=== PATIENT | male | born 1950 | race Caucasian/White ===

== ENCOUNTER 2021-08-15 10:23 | Inpatient (IN) ==
[2021-08-15] MEDS ORDERED: 0.9 % Sodium Chloride 500 ML IVC ONE (11:20)
[2021-08-15 12:13] LABS: Immature Granulocytes % 0.4 % (0-4); Mean Corpuscular Volume 94.5 fL (83.0-100.0)
[2021-08-15 12:15] LABS: Basophils % 0.2 %; Hematocrit 47.9 % (37.5-50.1); Hemoglobin 16.2 g/dL (12.9-16.9); Immature Platelets 6.9 % (1.1-6.1); Lymphocytes # 0.8 K/mcL (0.6-4.6); Lymphocytes % 18.7 %; Mean Corpuscular HGB Conc 33.8 g/dL (31.6-35.5); Mean Platelet Volume 10.8 fL (9.4-12.4); Monocytes # 0.5 K/mcL (0.0-1.3); Monocytes % 11.6 %; Neutrophils # 3.1 K/mcL (1.6-8.9); Red Blood Count 5.07 M/mcL (4.19-5.50); Red Cell Distribution Width 13.2 % (11.5-14.5); Segmented Neutrophils % 69.1 %; White Blood Count 4.5 K/mcL (4.3-11.1)
[2021-08-15 12:28] LABS: Platelet Count 96 K/mcL (140-400)
[2021-08-15 12:33] LABS: Alanine Aminotransferase 25 Units/L (7-52); Albumin 3.8 g/dL (3.5-5.7); Albumin/Globulin Ratio 1.5 (1.1-2.2); Alkaline Phosphatase 47 Units/L (34-104); Aspartate Amino Transferase 37 Units/L (13-39); BUN/Creatinine Ratio 16 (6-26); Bilirubin,Direct 0.2 mg/dL (0.0-0.2); Bilirubin,Indirect 0.6 mg/dL (0.0-1.0); Bilirubin,Total 0.8 mg/dL (0.3-1.0); Blood Urea Nitrogen 18 mg/dL (8-23); Calcium 8.5 mg/dL (8.6-10.3); Carbon Dioxide 29 mEq/L (23-29); Chloride 96 mEq/L (98-107); Globulin 2.5 g/dL (2.4-3.5); Glucose 117 mg/dL (70-105); Osmolality,Calculated 279 (280-300); Sodium 133 mEq/L (136-145); Total Protein 6.3 g/dL (6.4-8.9); Troponin I 0.07 ng/mL (< 0.04); eGFR For African Americans > 60 (> 60); eGFR For Non-African Americans > 60 (> 60)
[2021-08-15 12:37] LABS: Large Platelets Present (Not Present); Platelet Estimate Slight Decrease (Normal)
[2021-08-15 12:50] LABS: Influenza A PCR Negative (Negative); Influenza B PCR Negative (Negative); Resp. Syncytial Virus PCR Negative (Negative)
[2021-08-15] MEDS ORDERED: Isovue-370 500 ML BOTTLE IVP ONE (12:51)
[2021-08-15 12:52] LABS: SARS-CoV-2 by PCR (In House) Positive (Negative)
[2021-08-15 13:13] LABS: Bilirubin,Urine Negative (Negative); Blood,Urine Negative (Negative); Clarity,Urine Clear (Clear); Color,Urine Light-Yellow (Yellow); Glucose,Urine (UA) >=1000 mg/dL (Normal); Ketones,Urine Negative (Negative); Leukocyte Esterase,Urine Negative (Negative); Nitrite,Urine Negative (Negative); PH,Urine 5.5 pH Units (5.0-8.0); Protein,Urine Negative (Neg-Trace); RBC,Urine 0-3 per hpf (0-3); Specific Gravity,Urine 1.017 (1.010-1.025); Squamous Epithelial Cell,Urine Few per hpf (None-Few); Urobilinogen,Urine Normal (Normal); WBC,Urine 0-3 per hpf (0-3)
[2021-08-15 13:58] LABS: ABG Base Excess 0 mEq/L (-2 to 3); ABG HCO3 27 mEq/L (21-27); ABG Oxygen Saturation 89 % (95-98); ABG PCO2 51 mmHg (35-45); ABG PH 7.34 pH Units (7.32-7.45); ABG PO2 60 mmHg (85-104); ABG TCO2 29 mEq/L (20-26)
[2021-08-15] MEDS ORDERED: Albuterol 2.5 MG/3 ML NEBULIZER IH ONE (14:22)
[2021-08-15] MEDS ORDERED: methylPREDNISolone 125 MG/2 ML VIAL IVP ONE (14:22)
[2021-08-15] MEDS ORDERED: Naloxone 0.4 MG/ML INJ IVP PRN (14:44)
[2021-08-15] MEDS ORDERED: Ondansetron 4 MG/2 ML VIAL IVP PRN (14:44)
[2021-08-15] MEDS ORDERED: Ipratropium 1 PUFF INHALER IH PRN (14:49)
[2021-08-15] MEDS ORDERED: *HR* Dextrose 50 % in Water (Syg) 50 ML SYRINGE IVP PRN (15:10)
[2021-08-15] MEDS ORDERED: Dextrose Gel 15 GM/37.5 ML TUBE PO PRN ×2 (15:10)
[2021-08-15] MEDS ORDERED: D5% in Water 1,000 ML IVC PRN (15:10)
[2021-08-15] MEDS: Insulin LISPRO 300 UNITS/3 ML VIAL SUBQ SCH (18:14)
[2021-08-15] MEDS: Furosemide 20 MG/2 ML VIAL IVP SCH (21:38)
[2021-08-16] MEDS ORDERED: Albumin 25% 25gram/100mL 25 GM/100 ML IV.SOLN IVPB ONE (04:05)
[2021-08-16] MEDS: *HR* Enoxaparin 40 MG/0.4 ML SYRINGE SQ SCH (04:18)
[2021-08-16 06:55] LABS: Mean Platelet Volume 10.5 fL (9.4-12.4)
[2021-08-16 06:57] LABS: Hematocrit 47.7 % (37.5-50.1); Hemoglobin 15.6 g/dL (12.9-16.9); Immature Granulocytes % 0.3 % (0-4); Immature Platelets 5.5 % (1.1-6.1); Lymphocytes # 0.5 K/mcL (0.6-4.6); Mean Corpuscular HGB Conc 32.7 g/dL (31.6-35.5); Mean Corpuscular Hemoglobin 31.1 pg (28.0-33.3); Mean Corpuscular Volume 95.2 fL (83.0-100.0); Monocytes # 0.4 K/mcL (0.0-1.3); Monocytes % 9.2 %; Neutrophils # 3.1 K/mcL (1.6-8.9); Red Blood Count 5.01 M/mcL (4.19-5.50); Red Cell Distribution Width 12.8 % (11.5-14.5); Segmented Neutrophils % 78.5 %; White Blood Count 3.9 K/mcL (4.3-11.1)
[2021-08-16 07:07] LABS: Platelet Count 94 K/mcL (140-400)
[2021-08-16 07:15] LABS: BUN/Creatinine Ratio 22 (6-26); Blood Urea Nitrogen 27 mg/dL (8-23); Calcium 8.2 mg/dL (8.6-10.3); Carbon Dioxide 29 mEq/L (23-29); Chloride 97 mEq/L (98-107); Glucose 164 mg/dL (70-105); Osmolality,Calculated 287 (280-300); Potassium 4.2 mEq/L (3.5-5.1); Sodium 134 mEq/L (136-145); eGFR For African Americans > 60 (> 60); eGFR For Non-African Americans 59 (> 60)
[2021-08-16] MEDS ORDERED: *HR* OxyCODONE/APAP 7.5/325 TABLET PO PRN (07:38)
[2021-08-16] MEDS: Insulin LISPRO 300 UNITS/3 ML VIAL SUBQ SCH ×3 (08:33→18:06)
[2021-08-16] MEDS: Sacubitril/Valsartan 24/26 MG 1 TABLET PO SCH ×2 (08:34→21:12)
[2021-08-16] MEDS: levoFLOXacin 750 MG TABLET PO SCH (08:34)
[2021-08-16] MEDS: Aspirin Enteric Coated 81 MG Tablet PO SCH (08:34)
[2021-08-16] MEDS: Metoprolol XL (24 HR) Succ 25 MG TAB.ER.24H PO SCH (08:34)
[2021-08-16] MEDS: Cyanocobalamin (B-12) 1,000 MCG TABLET PO SCH (08:35)
[2021-08-16] MEDS: Furosemide 20 MG/2 ML VIAL IVP SCH ×2 (08:35→21:13)
[2021-08-17] MEDS: *HR* Enoxaparin 40 MG/0.4 ML SYRINGE SQ SCH (06:33)
[2021-08-17 06:55] VITALS: BP 106/69; PULSE 51; TEMP 98
[2021-08-17] MEDS: Insulin LISPRO 300 UNITS/3 ML VIAL SUBQ SCH (07:27)
[2021-08-17] MEDS: Aspirin Enteric Coated 81 MG Tablet PO SCH (09:51)
[2021-08-17] MEDS: levoFLOXacin 750 MG TABLET PO SCH (09:51)
[2021-08-17] MEDS: Sacubitril/Valsartan 24/26 MG 1 TABLET PO SCH (09:51)
[2021-08-17] MEDS: Cyanocobalamin (B-12) 1,000 MCG TABLET PO SCH (09:51)
[2021-08-17] MEDS: Metoprolol XL (24 HR) Succ 25 MG TAB.ER.24H PO SCH (09:51)
[2021-08-17] MEDS: Furosemide 20 MG/2 ML VIAL IVP SCH (09:51)
[2021-08-17 11:57] VITALS: O2SAT 93
== END 2021-08-17 12:31 | disposition home or self-care (01) | DRG 177 ==
LOC: EMEROOARM 10:23 → 3BNU 10:23
PROVIDERS: ADMIT Student in an Organized Health Care Education/Training Program; ATTEND Student in an Organized Health Care Education/Training Program

== ENCOUNTER 2021-08-19 14:24 | Inpatient (IN) ==
[2021-08-19] MEDS ORDERED: Ipratropium/Albuterol Neb 3 ML IH ONE (14:34)
[2021-08-19] MEDS ORDERED: methylPREDNISolone 125 MG/2 ML VIAL IVP ONE (14:41)
[2021-08-19] MEDS ORDERED: levoFLOXacin 750 MG/150 ML 750 MG/150 ML BAG IVPB ONE (14:42)
[2021-08-19 15:05] LABS: Basophils % 0.2 %; Red Cell Distribution Width 12.9 % (11.5-14.5)
[2021-08-19 15:07] LABS: Hematocrit 52.5 % (37.5-50.1); Hemoglobin 17.5 g/dL (12.9-16.9); Immature Granulocytes % 0.3 % (0-4); Immature Platelets 8.4 % (1.1-6.1); Lymphocytes # 0.7 K/mcL (0.6-4.6); Lymphocytes % 11.4 %; Mean Corpuscular HGB Conc 33.3 g/dL (31.6-35.5); Mean Corpuscular Hemoglobin 31.4 pg (28.0-33.3); Mean Corpuscular Volume 94.3 fL (83.0-100.0); Mean Platelet Volume 10.7 fL (9.4-12.4); Monocytes # 0.6 K/mcL (0.0-1.3); Monocytes % 10.7 %; Neutrophils # 4.4 K/mcL (1.6-8.9); Platelet Count 94 K/mcL (140-400); Red Blood Count 5.57 M/mcL (4.19-5.50); Segmented Neutrophils % 77.4 %; White Blood Count 5.7 K/mcL (4.3-11.1)
[2021-08-19 15:26] LABS: BUN/Creatinine Ratio 18 (6-26); Blood Urea Nitrogen 20 mg/dL (8-23); Calcium 8.6 mg/dL (8.6-10.3); Carbon Dioxide 28 mEq/L (23-29); Chloride 96 mEq/L (98-107); Glucose 106 mg/dL (70-105); Osmolality,Calculated 281 (280-300); Potassium 3.6 mEq/L (3.5-5.1); Sodium 134 mEq/L (136-145); eGFR For African Americans > 60 (> 60); eGFR For Non-African Americans > 60 (> 60)
[2021-08-19 15:30] LABS: Troponin I 0.05 ng/mL (< 0.04)
[2021-08-19 16:44] LABS: ABG Base Excess 3 mEq/L (-2 to 3); ABG HCO3 26 mEq/L (21-27); ABG Oxygen Saturation 81 % (95-98); ABG PCO2 35 mmHg (35-45); ABG PH 7.47 pH Units (7.32-7.45); ABG PO2 42 mmHg (85-104); ABG TCO2 27 mEq/L (20-26)
[2021-08-19] MEDS ORDERED: Ondansetron ODT 4 MG TAB.RAPDIS SL PRN (17:23)
[2021-08-19] MEDS ORDERED: Naloxone 0.4 MG/ML INJ IVP PRN (17:23)
[2021-08-20] MEDS: *HR* LORazepam 2 MG/ML VIAL IVP PRN (00:23)
[2021-08-20] MEDS: Melatonin 3 MG TABLET PO PRN ×2 (00:23→22:13)
[2021-08-20] MEDS: *HR* Heparin 5,000 UNIT/ML VIAL SQ SCH ×2 (05:25→18:15)
[2021-08-20] MEDS: Furosemide 40 MG TABLET PO SCH (09:52)
[2021-08-20] MEDS: Cyanocobalamin (B-12) 1,000 MCG TABLET PO SCH (09:52)
[2021-08-20] MEDS: levoFLOXacin 750 MG TABLET PO SCH (09:52)
[2021-08-20] MEDS: Spironolactone 25 MG TABLET PO SCH (09:52)
[2021-08-20] MEDS: BuPROPion XL (24 HR) 150 MG TABLET PO SCH (09:52)
[2021-08-20] MEDS: Sacubitril/Valsartan 24/26 MG 1 TABLET PO SCH ×2 (09:52→22:10)
[2021-08-20] MEDS: Aspirin Enteric Coated 81 MG Tablet PO SCH (09:52)
[2021-08-20] MEDS: Budesonide/Formoterol 160/4.5 1 PUFF INH IH SCH ×2 (11:14→20:31)
[2021-08-21] MEDS: *HR* Heparin 5,000 UNIT/ML VIAL SQ SCH ×2 (04:19→18:30)
[2021-08-21 05:45] LABS: Basophils % 0.1 %; Red Cell Distribution Width 12.8 % (11.5-14.5)
[2021-08-21 05:47] LABS: Hematocrit 48.3 % (37.5-50.1); Hemoglobin 16.4 g/dL (12.9-16.9); Immature Granulocytes % 0.6 % (0-4); Immature Platelets 8.2 % (1.1-6.1); Lymphocytes # 0.8 K/mcL (0.6-4.6); Lymphocytes % 11.4 %; Mean Corpuscular Volume 94.3 fL (83.0-100.0); Mean Platelet Volume 10.5 fL (9.4-12.4); Monocytes # 0.6 K/mcL (0.0-1.3); Monocytes % 8.3 %; Platelet Count 128 K/mcL (140-400); Red Blood Count 5.12 M/mcL (4.19-5.50); Segmented Neutrophils % 79.6 %; White Blood Count 6.7 K/mcL (4.3-11.1)
[2021-08-21 05:51] LABS: Neutrophils # 5.3 K/mcL (1.6-8.9)
[2021-08-21 06:05] LABS: BUN/Creatinine Ratio 29 (6-26); Blood Urea Nitrogen 28 mg/dL (8-23); Calcium 8.3 mg/dL (8.6-10.3); Carbon Dioxide 29 mEq/L (23-29); Chloride 96 mEq/L (98-107); Glucose 175 mg/dL (70-105); Osmolality,Calculated 284 (280-300); Potassium 4.3 mEq/L (3.5-5.1); Sodium 132 mEq/L (136-145); eGFR For African Americans > 60 (> 60); eGFR For Non-African Americans > 60 (> 60)
[2021-08-21] MEDS: Budesonide/Formoterol 160/4.5 1 PUFF INH IH SCH ×2 (08:10→20:53)
[2021-08-21 08:46] LABS: C-Reactive Protein < 5 mg/L (Less than 10)
[2021-08-21] MEDS: levoFLOXacin 750 MG TABLET PO SCH (09:59)
[2021-08-21] MEDS: Aspirin Enteric Coated 81 MG Tablet PO SCH (09:59)
[2021-08-21] MEDS: Spironolactone 25 MG TABLET PO SCH (09:59)
[2021-08-21] MEDS: Sacubitril/Valsartan 24/26 MG 1 TABLET PO SCH ×2 (09:59→20:42)
[2021-08-21] MEDS: Cyanocobalamin (B-12) 1,000 MCG TABLET PO SCH (09:59)
[2021-08-21] MEDS: Furosemide 40 MG TABLET PO SCH (09:59)
[2021-08-21] MEDS: BuPROPion XL (24 HR) 150 MG TABLET PO SCH (09:59)
[2021-08-21] MEDS: Melatonin 3 MG TABLET PO PRN (20:42)
[2021-08-21] MEDS: *HR* LORazepam 2 MG/ML VIAL IVP PRN (22:18)
[2021-08-22] MEDS ORDERED: *HR* LORazepam 2 MG/ML VIAL IVP ONE (00:17)
[2021-08-22 02:26] LABS: Basophils % 0.2 %; Hemoglobin 15.7 g/dL (12.9-16.9); Lymphocytes % 8.1 %
[2021-08-22 02:28] LABS: Hematocrit 46.4 % (37.5-50.1); Immature Granulocytes % 0.4 % (0-4); Immature Platelets 7.7 % (1.1-6.1); Lymphocytes # 0.4 K/mcL (0.6-4.6); Mean Corpuscular HGB Conc 33.8 g/dL (31.6-35.5); Mean Corpuscular Hemoglobin 31.5 pg (28.0-33.3); Mean Platelet Volume 10.2 fL (9.4-12.4); Monocytes # 0.4 K/mcL (0.0-1.3); Monocytes % 9.1 %; Neutrophils # 3.9 K/mcL (1.6-8.9); Platelet Count 128 K/mcL (140-400); Red Blood Count 4.99 M/mcL (4.19-5.50); Red Cell Distribution Width 12.8 % (11.5-14.5); Segmented Neutrophils % 82.2 %; White Blood Count 4.7 K/mcL (4.3-11.1)
[2021-08-22 02:35] LABS: BUN/Creatinine Ratio 26 (6-26); Blood Urea Nitrogen 21 mg/dL (8-23); Calcium 8.1 mg/dL (8.6-10.3); Carbon Dioxide 27 mEq/L (23-29); Chloride 100 mEq/L (98-107); Glucose 193 mg/dL (70-105); Osmolality,Calculated 278 (280-300); Potassium 4.3 mEq/L (3.5-5.1); Sodium 130 mEq/L (136-145); eGFR For African Americans > 60 (> 60); eGFR For Non-African Americans > 60 (> 60)
[2021-08-22] MEDS: Saline Nasal Spray 44 ML BOTTLE NS PRN (04:48)
[2021-08-22] MEDS ORDERED: Haloperidol Lactate 5 MG/ML VIAL IVP ONE (05:30)
[2021-08-22] MEDS: *HR* Heparin 5,000 UNIT/ML VIAL SQ SCH ×2 (05:37→18:34)
[2021-08-22] MEDS: Cyanocobalamin (B-12) 1,000 MCG TABLET PO SCH (10:37)
[2021-08-22] MEDS: Furosemide 40 MG TABLET PO SCH (10:37)
[2021-08-22] MEDS: Aspirin Enteric Coated 81 MG Tablet PO SCH (10:37)
[2021-08-22] MEDS: levoFLOXacin 750 MG TABLET PO SCH (10:37)
[2021-08-22] MEDS: Sacubitril/Valsartan 24/26 MG 1 TABLET PO SCH ×2 (10:37→20:19)
[2021-08-22] MEDS: Spironolactone 25 MG TABLET PO SCH (10:38)
[2021-08-22] MEDS: BuPROPion XL (24 HR) 150 MG TABLET PO SCH (10:38)
[2021-08-22] MEDS: Budesonide/Formoterol 160/4.5 1 PUFF INH IH SCH ×2 (11:17→20:09)
[2021-08-22] MEDS: Melatonin 3 MG TABLET PO PRN (21:29)
[2021-08-23] MEDS: *HR* OxyCODONE/APAP 7.5/325 TABLET PO PRN ×3 (00:04→21:07)
[2021-08-23 03:05] LABS: Mean Platelet Volume 10.4 fL (9.4-12.4); Red Cell Distribution Width 12.6 % (11.5-14.5)
[2021-08-23 03:07] LABS: Basophils % 0.3 %; Hemoglobin 16.3 g/dL (12.9-16.9); Immature Granulocytes % 1.3 % (0-4); Lymphocytes # 0.4 K/mcL (0.6-4.6); Lymphocytes % 6.6 %; Mean Corpuscular HGB Conc 33.3 g/dL (31.6-35.5); Mean Corpuscular Hemoglobin 31.3 pg (28.0-33.3); Monocytes # 0.5 K/mcL (0.0-1.3); Monocytes % 8.1 %; Platelet Count 144 K/mcL (140-400); Red Blood Count 5.21 M/mcL (4.19-5.50); Segmented Neutrophils % 83.7 %
[2021-08-23 03:20] LABS: BUN/Creatinine Ratio 24 (6-26); Blood Urea Nitrogen 18 mg/dL (8-23); Calcium 8.4 mg/dL (8.6-10.3); Carbon Dioxide 29 mEq/L (23-29); Chloride 100 mEq/L (98-107); Glucose 206 mg/dL (70-105); Osmolality,Calculated 280 (280-300); Potassium 4.3 mEq/L (3.5-5.1); Sodium 131 mEq/L (136-145); eGFR For African Americans > 60 (> 60); eGFR For Non-African Americans > 60 (> 60)
[2021-08-23] MEDS: *HR* Heparin 5,000 UNIT/ML VIAL SQ SCH ×2 (05:25→16:59)
[2021-08-23] MEDS: Budesonide/Formoterol 160/4.5 1 PUFF INH IH SCH ×2 (08:22→20:15)
[2021-08-23] MEDS: Cyanocobalamin (B-12) 1,000 MCG TABLET PO SCH (09:18)
[2021-08-23] MEDS: Spironolactone 25 MG TABLET PO SCH (09:18)
[2021-08-23] MEDS: levoFLOXacin 750 MG TABLET PO SCH (09:18)
[2021-08-23] MEDS: Furosemide 40 MG TABLET PO SCH (09:18)
[2021-08-23] MEDS: Sacubitril/Valsartan 24/26 MG 1 TABLET PO SCH ×2 (09:18→21:07)
[2021-08-23] MEDS: Aspirin Enteric Coated 81 MG Tablet PO SCH (09:18)
[2021-08-23] MEDS: BuPROPion XL (24 HR) 150 MG TABLET PO SCH (09:56)
[2021-08-23] MEDS: Melatonin 3 MG TABLET PO PRN (21:07)
[2021-08-24] MEDS: *HR* Heparin 5,000 UNIT/ML VIAL SQ SCH ×2 (05:39→18:08)
[2021-08-24] MEDS: Budesonide/Formoterol 160/4.5 1 PUFF INH IH SCH ×2 (08:03→19:49)
[2021-08-24] MEDS: Cyanocobalamin (B-12) 1,000 MCG TABLET PO SCH (08:08)
[2021-08-24] MEDS: Furosemide 40 MG TABLET PO SCH (08:08)
[2021-08-24] MEDS: Sacubitril/Valsartan 24/26 MG 1 TABLET PO SCH ×2 (08:08→20:48)
[2021-08-24] MEDS: levoFLOXacin 750 MG TABLET PO SCH (08:08)
[2021-08-24] MEDS: Spironolactone 25 MG TABLET PO SCH (08:08)
[2021-08-24] MEDS: Aspirin Enteric Coated 81 MG Tablet PO SCH (08:08)
[2021-08-24] MEDS: BuPROPion XL (24 HR) 150 MG TABLET PO SCH (08:09)
[2021-08-24] MEDS: Melatonin 3 MG TABLET PO PRN (20:47)
[2021-08-24] MEDS: Fluticasone Propionate Nasal 50 MCG/SPRAY BOTTLE NS SCH (20:48)
[2021-08-25] MEDS: *HR* OxyCODONE/APAP 7.5/325 TABLET PO PRN (01:59)
[2021-08-25] MEDS: *HR* Heparin 5,000 UNIT/ML VIAL SQ SCH ×2 (05:31→17:36)
[2021-08-25 09:21] LABS: Basophils % 0.4 %; Eosinophils # 0.1 K/mcL (0.0-0.6); Eosinophils % 1.4 %; Hematocrit 46.6 % (37.5-50.1); Immature Granulocytes % 2.5 % (0-4); Lymphocytes # 0.6 K/mcL (0.6-4.6); Lymphocytes % 6.1 %; Mean Corpuscular HGB Conc 34.3 g/dL (31.6-35.5); Mean Corpuscular Hemoglobin 32.2 pg (28.0-33.3); Mean Corpuscular Volume 93.8 fL (83.0-100.0); Mean Platelet Volume 10.1 fL (9.4-12.4); Monocytes # 0.6 K/mcL (0.0-1.3); Monocytes % 5.6 %; Neutrophils # 8.4 K/mcL (1.6-8.9); Platelet Count 166 K/mcL (140-400); Red Blood Count 4.97 M/mcL (4.19-5.50); Red Cell Distribution Width 12.9 % (11.5-14.5)
[2021-08-25 09:40] LABS: BUN/Creatinine Ratio 32 (6-26); Blood Urea Nitrogen 28 mg/dL (8-23); Carbon Dioxide 30 mEq/L (23-29); Chloride 100 mEq/L (98-107); Glucose 159 mg/dL (70-105); Osmolality,Calculated 287 (280-300); Potassium 4.1 mEq/L (3.5-5.1); Sodium 134 mEq/L (136-145); eGFR For African Americans > 60 (> 60); eGFR For Non-African Americans > 60 (> 60)
[2021-08-25] MEDS: Aspirin Enteric Coated 81 MG Tablet PO SCH (09:44)
[2021-08-25] MEDS: Fluticasone Propionate Nasal 50 MCG/SPRAY BOTTLE NS SCH (09:44)
[2021-08-25] MEDS: BuPROPion XL (24 HR) 150 MG TABLET PO SCH (09:44)
[2021-08-25] MEDS: levoFLOXacin 750 MG TABLET PO SCH (09:45)
[2021-08-25] MEDS: Cyanocobalamin (B-12) 1,000 MCG TABLET PO SCH (09:45)
[2021-08-25] MEDS: Spironolactone 25 MG TABLET PO SCH (09:46)
[2021-08-25] MEDS: Sacubitril/Valsartan 24/26 MG 1 TABLET PO SCH ×2 (09:46→19:49)
[2021-08-25] MEDS: Furosemide 40 MG TABLET PO SCH (09:46)
[2021-08-25] MEDS: Budesonide/Formoterol 160/4.5 1 PUFF INH IH SCH ×2 (11:48→20:36)
[2021-08-25] MEDS: Melatonin 3 MG TABLET PO PRN (20:30)
[2021-08-26 01:10] LABS: Basophils % 0.3 %; Eosinophils # 0.1 K/mcL (0.0-0.6); Eosinophils % 0.7 %; Hematocrit 46.1 % (37.5-50.1); Hemoglobin 15.5 g/dL (12.9-16.9); Immature Granulocytes % 2.3 % (0-4); Lymphocytes # 0.3 K/mcL (0.6-4.6); Lymphocytes % 3.4 %; Mean Corpuscular HGB Conc 33.6 g/dL (31.6-35.5); Mean Corpuscular Hemoglobin 31.7 pg (28.0-33.3); Mean Corpuscular Volume 94.3 fL (83.0-100.0); Monocytes # 0.4 K/mcL (0.0-1.3); Monocytes % 4.1 %; Neutrophils # 8.9 K/mcL (1.6-8.9); Platelet Count 181 K/mcL (140-400); Red Blood Count 4.89 M/mcL (4.19-5.50); Red Cell Distribution Width 12.7 % (11.5-14.5); Segmented Neutrophils % 89.2 %; White Blood Count 9.9 K/mcL (4.3-11.1)
[2021-08-26 01:33] LABS: BUN/Creatinine Ratio 31 (6-26); Blood Urea Nitrogen 25 mg/dL (8-23); Carbon Dioxide 28 mEq/L (23-29); Chloride 96 mEq/L (98-107); Glucose 200 mg/dL (70-105); Osmolality,Calculated 282 (280-300); Potassium 4.3 mEq/L (3.5-5.1); Sodium 131 mEq/L (136-145); eGFR For African Americans > 60 (> 60); eGFR For Non-African Americans > 60 (> 60)
[2021-08-26] MEDS: Saline Nasal Spray 44 ML BOTTLE NS PRN (04:42)
[2021-08-26] MEDS: *HR* Heparin 5,000 UNIT/ML VIAL SQ SCH ×2 (04:42→17:12)
[2021-08-26] MEDS: BuPROPion XL (24 HR) 150 MG TABLET PO SCH (09:33)
[2021-08-26] MEDS: levoFLOXacin 750 MG TABLET PO SCH (09:34)
[2021-08-26] MEDS: Sacubitril/Valsartan 24/26 MG 1 TABLET PO SCH ×2 (09:34→21:44)
[2021-08-26] MEDS: Cyanocobalamin (B-12) 1,000 MCG TABLET PO SCH (09:34)
[2021-08-26] MEDS: Furosemide 40 MG TABLET PO SCH (09:34)
[2021-08-26] MEDS: Aspirin Enteric Coated 81 MG Tablet PO SCH (09:34)
[2021-08-26] MEDS: Spironolactone 25 MG TABLET PO SCH (09:34)
[2021-08-26] MEDS: Fluticasone Propionate Nasal 50 MCG/SPRAY BOTTLE NS SCH (09:39)
[2021-08-26] MEDS: Budesonide/Formoterol 160/4.5 1 PUFF INH IH SCH ×2 (10:24→19:52)
[2021-08-26] MEDS ORDERED: Isovue-370 500 ML BOTTLE IVP ONE (10:55)
[2021-08-26] MEDS: Melatonin 3 MG TABLET PO PRN (21:44)
[2021-08-26] MEDS: *HR* OxyCODONE/APAP 7.5/325 TABLET PO PRN (21:44)
[2021-08-27 01:49] LABS: Basophils # 0.1 K/mcL (0.0-0.2); Basophils % 0.6 %; Eosinophils % 0.3 %; Hematocrit 47.6 % (37.5-50.1); Hemoglobin 15.8 g/dL (12.9-16.9); Immature Granulocytes % 4.2 % (0-4); Lymphocytes # 0.3 K/mcL (0.6-4.6); Lymphocytes % 3.5 %; Mean Corpuscular HGB Conc 33.2 g/dL (31.6-35.5); Mean Corpuscular Hemoglobin 31.2 pg (28.0-33.3); Mean Corpuscular Volume 93.9 fL (83.0-100.0); Mean Platelet Volume 9.8 fL (9.4-12.4); Monocytes # 0.4 K/mcL (0.0-1.3); Neutrophils # 8.4 K/mcL (1.6-8.9); Platelet Count 177 K/mcL (140-400); Red Blood Count 5.07 M/mcL (4.19-5.50); Red Cell Distribution Width 12.7 % (11.5-14.5); Segmented Neutrophils % 87.4 %; White Blood Count 9.7 K/mcL (4.3-11.1)
[2021-08-27 02:08] LABS: BUN/Creatinine Ratio 29 (6-26); Blood Urea Nitrogen 27 mg/dL (8-23); Calcium 8.3 mg/dL (8.6-10.3); Carbon Dioxide 30 mEq/L (23-29); Chloride 96 mEq/L (98-107); Glucose 188 mg/dL (70-105); Osmolality,Calculated 280 (280-300); Potassium 4.6 mEq/L (3.5-5.1); Sodium 130 mEq/L (136-145); eGFR For African Americans > 60 (> 60); eGFR For Non-African Americans > 60 (> 60)
[2021-08-27] MEDS: *HR* Heparin 5,000 UNIT/ML VIAL SQ SCH ×2 (05:18→16:45)
[2021-08-27] MEDS: Saline Nasal Spray 44 ML BOTTLE NS PRN (06:26)
[2021-08-27] MEDS: Budesonide/Formoterol 160/4.5 1 PUFF INH IH SCH ×2 (07:49→19:37)
[2021-08-27] MEDS: levoFLOXacin 750 MG TABLET PO SCH (08:57)
[2021-08-27] MEDS: Sacubitril/Valsartan 24/26 MG 1 TABLET PO SCH ×2 (08:57→20:36)
[2021-08-27] MEDS: Aspirin Enteric Coated 81 MG Tablet PO SCH (08:57)
[2021-08-27] MEDS: Furosemide 40 MG/4 ML VIAL IVP SCH (08:58)
[2021-08-27] MEDS: Spironolactone 25 MG TABLET PO SCH (08:58)
[2021-08-27] MEDS: Fluticasone Propionate Nasal 50 MCG/SPRAY BOTTLE NS SCH (08:58)
[2021-08-27] MEDS: Cyanocobalamin (B-12) 1,000 MCG TABLET PO SCH (08:58)
[2021-08-27] MEDS: BuPROPion XL (24 HR) 150 MG TABLET PO SCH (08:59)
[2021-08-27] MEDS: *HR* OxyCODONE/APAP 7.5/325 TABLET PO PRN ×2 (09:11→16:44)
[2021-08-27] MEDS: Melatonin 3 MG TABLET PO PRN (20:36)
[2021-08-28] MEDS: *HR* Heparin 5,000 UNIT/ML VIAL SQ SCH ×2 (05:49→17:55)
[2021-08-28] MEDS: Fluticasone Propionate Nasal 50 MCG/SPRAY BOTTLE NS SCH (09:36)
[2021-08-28] MEDS: Sacubitril/Valsartan 24/26 MG 1 TABLET PO SCH ×2 (09:37→20:10)
[2021-08-28] MEDS: Furosemide 40 MG/4 ML VIAL IVP SCH (09:37)
[2021-08-28] MEDS: Spironolactone 25 MG TABLET PO SCH (09:37)
[2021-08-28] MEDS: Aspirin Enteric Coated 81 MG Tablet PO SCH (09:37)
[2021-08-28] MEDS: Cyanocobalamin (B-12) 1,000 MCG TABLET PO SCH (09:38)
[2021-08-28] MEDS: levoFLOXacin 750 MG TABLET PO SCH (09:38)
[2021-08-28] MEDS: BuPROPion XL (24 HR) 150 MG TABLET PO SCH (09:38)
[2021-08-28] MEDS: Budesonide/Formoterol 160/4.5 1 PUFF INH IH SCH ×2 (11:20→20:03)
[2021-08-28] MEDS ORDERED: Ipratropium 1 PUFF INHALER IH PRN (12:18)
[2021-08-28] MEDS: Saline Nasal Spray 44 ML BOTTLE NS PRN (17:57)
[2021-08-28] MEDS: Melatonin 3 MG TABLET PO PRN (22:55)
[2021-08-28] MEDS: *HR* OxyCODONE/APAP 7.5/325 TABLET PO PRN (22:55)
[2021-08-29] MEDS: *HR* Heparin 5,000 UNIT/ML VIAL SQ SCH ×2 (06:01→18:39)
[2021-08-29] MEDS: Saline Nasal Spray 44 ML BOTTLE NS PRN (06:28)
[2021-08-29] MEDS: Budesonide/Formoterol 160/4.5 1 PUFF INH IH SCH ×2 (07:42→21:53)
[2021-08-29] MEDS: Aspirin Enteric Coated 81 MG Tablet PO SCH (08:35)
[2021-08-29] MEDS: BuPROPion XL (24 HR) 150 MG TABLET PO SCH (08:35)
[2021-08-29] MEDS: Dexamethasone Sodium Phos/PF 10 MG/ML VIAL IVP SCH (08:35)
[2021-08-29] MEDS: Furosemide 40 MG/4 ML VIAL IVP SCH (08:35)
[2021-08-29] MEDS: Sacubitril/Valsartan 24/26 MG 1 TABLET PO SCH ×2 (08:35→20:05)
[2021-08-29] MEDS: levoFLOXacin 750 MG TABLET PO SCH (08:35)
[2021-08-29] MEDS: Spironolactone 25 MG TABLET PO SCH (08:35)
[2021-08-29] MEDS: Fluticasone Propionate Nasal 50 MCG/SPRAY BOTTLE NS SCH (08:35)
[2021-08-29] MEDS: Cyanocobalamin (B-12) 1,000 MCG TABLET PO SCH (08:35)
[2021-08-29] MEDS: Melatonin 3 MG TABLET PO PRN (20:05)
[2021-08-30] MEDS: *HR* Heparin 5,000 UNIT/ML VIAL SQ SCH ×2 (05:46→18:15)
[2021-08-30 07:01] LABS: BUN/Creatinine Ratio 37 (6-26); Blood Urea Nitrogen 32 mg/dL (8-23); Calcium 8.9 mg/dL (8.6-10.3); Carbon Dioxide 30 mEq/L (23-29); Chloride 93 mEq/L (98-107); Glucose 164 mg/dL (70-105); Osmolality,Calculated 281 (280-300); Potassium 4.7 mEq/L (3.5-5.1); Sodium 130 mEq/L (136-145); eGFR For African Americans > 60 (> 60); eGFR For Non-African Americans > 60 (> 60)
[2021-08-30] MEDS: Budesonide/Formoterol 160/4.5 1 PUFF INH IH SCH ×2 (07:34→21:08)
[2021-08-30] MEDS: Aspirin Enteric Coated 81 MG Tablet PO SCH (09:09)
[2021-08-30] MEDS: BuPROPion XL (24 HR) 150 MG TABLET PO SCH (09:09)
[2021-08-30] MEDS: Spironolactone 25 MG TABLET PO SCH (09:09)
[2021-08-30] MEDS: Sacubitril/Valsartan 24/26 MG 1 TABLET PO SCH ×2 (09:09→20:23)
[2021-08-30] MEDS: Cyanocobalamin (B-12) 1,000 MCG TABLET PO SCH (09:09)
[2021-08-30] MEDS: Dexamethasone Sodium Phos/PF 10 MG/ML VIAL IVP SCH (09:10)
[2021-08-30] MEDS: Fluticasone Propionate Nasal 50 MCG/SPRAY BOTTLE NS SCH (09:10)
[2021-08-30] MEDS: Furosemide 40 MG/4 ML VIAL IVP SCH (09:10)
[2021-08-30 14:26] LABS: C-Reactive Protein < 5 mg/L (Less than 10)
[2021-08-30] MEDS: *HR* OxyCODONE/APAP 7.5/325 TABLET PO PRN (20:23)
[2021-08-30] MEDS: Melatonin 3 MG TABLET PO PRN (20:23)
[2021-08-31 01:49] LABS: Basophils # 0.1 K/mcL (0.0-0.2); Basophils % 0.5 %; Eosinophils % 0.1 %; Hematocrit 49.6 % (37.5-50.1); Hemoglobin 16.7 g/dL (12.9-16.9); Immature Granulocytes % 5.1 % (0-4); Lymphocytes % 6.5 %; Mean Corpuscular HGB Conc 33.7 g/dL (31.6-35.5); Mean Corpuscular Volume 92.2 fL (83.0-100.0); Mean Platelet Volume 9.9 fL (9.4-12.4); Monocytes # 1.3 K/mcL (0.0-1.3); Monocytes % 8.4 %; Platelet Count 170 K/mcL (140-400); Red Blood Count 5.38 M/mcL (4.19-5.50); Red Cell Distribution Width 12.7 % (11.5-14.5); Segmented Neutrophils % 79.4 %
[2021-08-31 01:52] LABS: Neutrophils # 12.1 K/mcL (1.6-8.9); White Blood Count 15.2 K/mcL (4.3-11.1)
[2021-08-31 02:16] LABS: BUN/Creatinine Ratio 42 (6-26); Blood Urea Nitrogen 36 mg/dL (8-23); Calcium 8.6 mg/dL (8.6-10.3); Carbon Dioxide 27 mEq/L (23-29); Chloride 95 mEq/L (98-107); Glucose 190 mg/dL (70-105); Osmolality,Calculated 277 (280-300); Potassium 4.8 mEq/L (3.5-5.1); Sodium 127 mEq/L (136-145); eGFR For African Americans > 60 (> 60); eGFR For Non-African Americans > 60 (> 60)
[2021-08-31] MEDS: *HR* Heparin 5,000 UNIT/ML VIAL SQ SCH ×2 (05:31→18:09)
[2021-08-31] MEDS: Budesonide/Formoterol 160/4.5 1 PUFF INH IH SCH ×2 (08:39→20:04)
[2021-08-31] MEDS: Aspirin Enteric Coated 81 MG Tablet PO SCH (09:28)
[2021-08-31] MEDS: Spironolactone 25 MG TABLET PO SCH (09:28)
[2021-08-31] MEDS: BuPROPion XL (24 HR) 150 MG TABLET PO SCH (09:28)
[2021-08-31] MEDS: Cyanocobalamin (B-12) 1,000 MCG TABLET PO SCH (09:28)
[2021-08-31] MEDS: Sacubitril/Valsartan 24/26 MG 1 TABLET PO SCH ×2 (09:28→22:30)
[2021-08-31] MEDS: Fluticasone Propionate Nasal 50 MCG/SPRAY BOTTLE NS SCH (09:28)
[2021-08-31] MEDS: Pantoprazole 40 MG VIAL IVP SCH (09:29)
[2021-08-31] MEDS: Dexamethasone Sodium Phos/PF 10 MG/ML VIAL IVP SCH (09:29)
[2021-08-31] MEDS: Melatonin 3 MG TABLET PO PRN (22:34)
[2021-08-31] MEDS: *HR* OxyCODONE/APAP 7.5/325 TABLET PO PRN (22:34)
[2021-09-01 04:46] LABS: BUN/Creatinine Ratio 36 (6-26); Blood Urea Nitrogen 38 mg/dL (8-23); Calcium 8.4 mg/dL (8.6-10.3); Carbon Dioxide 32 mEq/L (23-29); Chloride 95 mEq/L (98-107); Glucose 211 mg/dL (70-105); Osmolality,Calculated 283 (280-300); Potassium 5.2 mEq/L (3.5-5.1); Sodium 129 mEq/L (136-145); eGFR For African Americans > 60 (> 60); eGFR For Non-African Americans > 60 (> 60)
[2021-09-01] MEDS: *HR* Heparin 5,000 UNIT/ML VIAL SQ SCH ×2 (06:01→19:02)
[2021-09-01] MEDS: Budesonide/Formoterol 160/4.5 1 PUFF INH IH SCH ×2 (08:09→20:44)
[2021-09-01] MEDS: Cyanocobalamin (B-12) 1,000 MCG TABLET PO SCH (09:36)
[2021-09-01] MEDS: BuPROPion XL (24 HR) 150 MG TABLET PO SCH (09:37)
[2021-09-01] MEDS: Aspirin Enteric Coated 81 MG Tablet PO SCH (09:37)
[2021-09-01] MEDS: Fluticasone Propionate Nasal 50 MCG/SPRAY BOTTLE NS SCH (09:37)
[2021-09-01] MEDS: Dexamethasone Sodium Phos/PF 10 MG/ML VIAL IVP SCH (09:37)
[2021-09-01] MEDS: Pantoprazole 40 MG VIAL IVP SCH (09:37)
[2021-09-01] MEDS: *HR* OxyCODONE/APAP 7.5/325 TABLET PO PRN ×2 (13:14→20:31)
[2021-09-01] MEDS: *HR* LORazepam 2 MG/ML VIAL IVP PRN (20:30)
[2021-09-01] MEDS: Melatonin 3 MG TABLET PO PRN (20:31)
[2021-09-02] MEDS: *HR* Heparin 5,000 UNIT/ML VIAL SQ SCH ×2 (06:11→17:40)
[2021-09-02] MEDS: Budesonide/Formoterol 160/4.5 1 PUFF INH IH SCH ×2 (07:52→20:29)
[2021-09-02] MEDS: Aspirin Enteric Coated 81 MG Tablet PO SCH (10:13)
[2021-09-02] MEDS: Dexamethasone Sodium Phos/PF 10 MG/ML VIAL IVP SCH (10:13)
[2021-09-02] MEDS: Cyanocobalamin (B-12) 1,000 MCG TABLET PO SCH (10:13)
[2021-09-02] MEDS: Pantoprazole 40 MG VIAL IVP SCH (10:13)
[2021-09-02] MEDS: BuPROPion XL (24 HR) 150 MG TABLET PO SCH (10:13)
[2021-09-02] MEDS: Fluticasone Propionate Nasal 50 MCG/SPRAY BOTTLE NS SCH (10:14)
[2021-09-02] MEDS ORDERED: Furosemide 20 MG/2 ML VIAL IVP ONE (11:02)
[2021-09-02] MEDS ORDERED: Gadolinium Contrast Agent (WT Based) IV PRN (11:05)
[2021-09-02] MEDS ORDERED: HydrOXYzine 100 MG/2 ML VIAL IM ONE (19:55)
[2021-09-03] MEDS: *HR* Heparin 5,000 UNIT/ML VIAL SQ SCH ×2 (05:28→17:39)
[2021-09-03 07:32] LABS: Basophils % 0.4 %; Eosinophils % 0.1 %
[2021-09-03 07:34] LABS: Basophils # 0.1 K/mcL (0.0-0.2); Hematocrit 46.6 % (37.5-50.1); Hemoglobin 15.9 g/dL (12.9-16.9); Immature Granulocytes % 3.8 % (0-4); Immature Platelets 5.2 % (1.1-6.1); Lymphocytes # 1.2 K/mcL (0.6-4.6); Mean Corpuscular HGB Conc 34.1 g/dL (31.6-35.5); Mean Corpuscular Hemoglobin 31.4 pg (28.0-33.3); Mean Corpuscular Volume 92.1 fL (83.0-100.0); Monocytes # 1.2 K/mcL (0.0-1.3); Monocytes % 8.9 %; Neutrophils # 10.6 K/mcL (1.6-8.9); Platelet Count 137 K/mcL (140-400); Red Blood Count 5.06 M/mcL (4.19-5.50); Red Cell Distribution Width 12.7 % (11.5-14.5); Segmented Neutrophils % 77.8 %; White Blood Count 13.6 K/mcL (4.3-11.1)
[2021-09-03] MEDS: Budesonide/Formoterol 160/4.5 1 PUFF INH IH SCH ×2 (07:34→21:15)
[2021-09-03 07:51] LABS: BUN/Creatinine Ratio 38 (6-26); Blood Urea Nitrogen 38 mg/dL (8-23); Calcium 8.3 mg/dL (8.6-10.3); Carbon Dioxide 30 mEq/L (23-29); Chloride 96 mEq/L (98-107); Glucose 148 mg/dL (70-105); Osmolality,Calculated 280 (280-300); Potassium 4.8 mEq/L (3.5-5.1); Sodium 129 mEq/L (136-145); eGFR For African Americans > 60 (> 60); eGFR For Non-African Americans > 60 (> 60)
[2021-09-03] MEDS: Dexamethasone Sodium Phos/PF 10 MG/ML VIAL IVP SCH (07:58)
[2021-09-03] MEDS: Pantoprazole 40 MG VIAL IVP SCH (07:58)
[2021-09-03] MEDS: Aspirin Enteric Coated 81 MG Tablet PO SCH (07:58)
[2021-09-03] MEDS: Fluticasone Propionate Nasal 50 MCG/SPRAY BOTTLE NS SCH (07:58)
[2021-09-03] MEDS: Cyanocobalamin (B-12) 1,000 MCG TABLET PO SCH (07:58)
[2021-09-03] MEDS: BuPROPion XL (24 HR) 150 MG TABLET PO SCH (07:58)
[2021-09-03] MEDS ORDERED: Furosemide 20 MG/2 ML VIAL IVP ONE (10:47)
[2021-09-03] MEDS ORDERED: GuaiFENesin Liq 200 MG/10 ML UDC PO PRN (21:00)
[2021-09-04] MEDS ORDERED: hydrOXYzine pamoate 25 MG CAPSULE PO ONE (01:31)
[2021-09-04] MEDS ORDERED: Haloperidol Lactate 5 MG/ML VIAL IVP ONE (03:03)
[2021-09-04] MEDS: *HR* Heparin 5,000 UNIT/ML VIAL SQ SCH ×2 (04:41→17:12)
[2021-09-04] MEDS: Budesonide/Formoterol 160/4.5 1 PUFF INH IH SCH ×2 (07:31→21:02)
[2021-09-04] MEDS: Dexamethasone Sodium Phos/PF 10 MG/ML VIAL IVP SCH (09:57)
[2021-09-04] MEDS: Fluticasone Propionate Nasal 50 MCG/SPRAY BOTTLE NS SCH (09:57)
[2021-09-04] MEDS: Aspirin Enteric Coated 81 MG Tablet PO SCH (09:58)
[2021-09-04] MEDS: Cyanocobalamin (B-12) 1,000 MCG TABLET PO SCH (09:58)
[2021-09-04] MEDS: BuPROPion XL (24 HR) 150 MG TABLET PO SCH (09:58)
[2021-09-04] MEDS: Pantoprazole 40 MG VIAL IVP SCH (09:58)
[2021-09-04] MEDS ORDERED: Furosemide 40 MG/4 ML VIAL IVP ONE (11:20)
[2021-09-04] MEDS: Spironolactone 25 MG TABLET PO SCH (19:18)
[2021-09-04] MEDS: Sacubitril/Valsartan 24/26 MG 1 TABLET PO SCH (19:18)
[2021-09-05 05:53] LABS: BUN/Creatinine Ratio 36 (6-26); Blood Urea Nitrogen 37 mg/dL (8-23); Calcium 7.9 mg/dL (8.6-10.3); Carbon Dioxide 27 mEq/L (23-29); Chloride 95 mEq/L (98-107); Glucose 277 mg/dL (70-105); Osmolality,Calculated 287 (280-300); Potassium 4.2 mEq/L (3.5-5.1); Sodium 129 mEq/L (136-145); eGFR For African Americans > 60 (> 60); eGFR For Non-African Americans > 60 (> 60)
[2021-09-05] MEDS: *HR* Heparin 5,000 UNIT/ML VIAL SQ SCH (05:55)
[2021-09-05] MEDS: Budesonide/Formoterol 160/4.5 1 PUFF INH IH SCH ×2 (08:41→20:25)
[2021-09-05] MEDS: Cyanocobalamin (B-12) 1,000 MCG TABLET PO SCH (09:43)
[2021-09-05] MEDS: BuPROPion XL (24 HR) 150 MG TABLET PO SCH (09:43)
[2021-09-05] MEDS: Aspirin Enteric Coated 81 MG Tablet PO SCH (09:44)
[2021-09-05] MEDS: Pantoprazole 40 MG VIAL IVP SCH (09:44)
[2021-09-05] MEDS: Dexamethasone Sodium Phos/PF 10 MG/ML VIAL IVP SCH (09:44)
[2021-09-05] MEDS: Fluticasone Propionate Nasal 50 MCG/SPRAY BOTTLE NS SCH (10:04)
[2021-09-05] MEDS: Sacubitril/Valsartan 24/26 MG 1 TABLET PO SCH (20:53)
[2021-09-06 03:20] LABS: Hematocrit 44.9 % (37.5-50.1); Hemoglobin 15.5 g/dL (12.9-16.9); Mean Corpuscular HGB Conc 34.5 g/dL (31.6-35.5); Mean Corpuscular Hemoglobin 31.8 pg (28.0-33.3); Mean Platelet Volume 10.2 fL (9.4-12.4); Platelet Count 117 K/mcL (140-400); Red Blood Count 4.88 M/mcL (4.19-5.50); Red Cell Distribution Width 12.5 % (11.5-14.5); White Blood Count 13.3 K/mcL (4.3-11.1)
[2021-09-06 03:31] LABS: BUN/Creatinine Ratio 29 (6-26); Blood Urea Nitrogen 25 mg/dL (8-23); Calcium 7.8 mg/dL (8.6-10.3); Carbon Dioxide 24 mEq/L (23-29); Chloride 98 mEq/L (98-107); Glucose 311 mg/dL (70-105); Osmolality,Calculated 288 (280-300); Potassium 4.5 mEq/L (3.5-5.1); Sodium 131 mEq/L (136-145); eGFR For African Americans > 60 (> 60); eGFR For Non-African Americans > 60 (> 60)
[2021-09-06 05:02] LABS: Lymphocytes # 1.6 K/mcL (0.6-4.6); Monocytes # 1.3 K/mcL (0.0-1.3); Neutrophils # 10.1 K/mcL (1.6-8.9); Platelet Estimate Slight Decrease (Normal)
[2021-09-06] MEDS: Budesonide/Formoterol 160/4.5 1 PUFF INH IH SCH ×2 (07:47→19:48)
[2021-09-06] MEDS: Aspirin Enteric Coated 81 MG Tablet PO SCH (09:13)
[2021-09-06] MEDS: Cyanocobalamin (B-12) 1,000 MCG TABLET PO SCH (09:13)
[2021-09-06] MEDS: BuPROPion XL (24 HR) 150 MG TABLET PO SCH (09:13)
[2021-09-06] MEDS: Sacubitril/Valsartan 24/26 MG 1 TABLET PO SCH ×2 (09:13→21:22)
[2021-09-06] MEDS: Furosemide 40 MG TABLET PO SCH (09:13)
[2021-09-06] MEDS: dexAMETHasone 4 MG TABLET PO SCH (09:13)
[2021-09-06] MEDS: Pantoprazole 40 MG VIAL IVP SCH (09:14)
[2021-09-06] MEDS: Fluticasone Propionate Nasal 50 MCG/SPRAY BOTTLE NS SCH (09:14)
[2021-09-07 06:48] LABS: Mean Platelet Volume 9.8 fL (9.4-12.4); Red Cell Distribution Width 12.9 % (11.5-14.5)
[2021-09-07 06:50] LABS: Hematocrit 49.6 % (37.5-50.1); Hemoglobin 16.5 g/dL (12.9-16.9); Immature Platelets 5.8 % (1.1-6.1); Mean Corpuscular HGB Conc 33.3 g/dL (31.6-35.5); Mean Corpuscular Volume 93.2 fL (83.0-100.0); Platelet Count 139 K/mcL (140-400); Red Blood Count 5.32 M/mcL (4.19-5.50); White Blood Count 20.2 K/mcL (4.3-11.1)
[2021-09-07 07:07] LABS: BUN/Creatinine Ratio 31 (6-26); Blood Urea Nitrogen 24 mg/dL (8-23); Calcium 8.5 mg/dL (8.6-10.3); Carbon Dioxide 31 mEq/L (23-29); Chloride 97 mEq/L (98-107); Glucose 176 mg/dL (70-105); Osmolality,Calculated 282 (280-300); Potassium 4.6 mEq/L (3.5-5.1); Sodium 132 mEq/L (136-145); eGFR For African Americans > 60 (> 60); eGFR For Non-African Americans > 60 (> 60)
[2021-09-07] MEDS: Budesonide/Formoterol 160/4.5 1 PUFF INH IH SCH ×2 (08:14→20:20)
[2021-09-07 08:55] LABS: Lymphocytes # 4.4 K/mcL (0.6-4.6); Monocytes # 0.6 K/mcL (0.0-1.3); Neutrophils # 15.2 K/mcL (1.6-8.9); Reactive Lymphocytes Present (Not Present)
[2021-09-07 08:56] LABS: Platelet Estimate Decreased (Normal)
[2021-09-07] MEDS: Furosemide 40 MG TABLET PO SCH (10:27)
[2021-09-07] MEDS: Cyanocobalamin (B-12) 1,000 MCG TABLET PO SCH (10:27)
[2021-09-07] MEDS: dexAMETHasone 4 MG TABLET PO SCH (10:27)
[2021-09-07] MEDS: Aspirin Enteric Coated 81 MG Tablet PO SCH (10:27)
[2021-09-07] MEDS: Sacubitril/Valsartan 24/26 MG 1 TABLET PO SCH ×2 (10:27→20:21)
[2021-09-07] MEDS: BuPROPion XL (24 HR) 150 MG TABLET PO SCH (10:27)
[2021-09-07] MEDS: Pantoprazole 40 MG VIAL IVP SCH (10:28)
[2021-09-07] MEDS: Fluticasone Propionate Nasal 50 MCG/SPRAY BOTTLE NS SCH (10:28)
[2021-09-07 10:44] LABS: Estimated Average Glucose 160 mg/dl; Hemoglobin A1C 7.2 %
[2021-09-08 03:50] LABS: Hematocrit 47.9 % (37.5-50.1); Mean Corpuscular HGB Conc 33.4 g/dL (31.6-35.5); Mean Corpuscular Hemoglobin 30.5 pg (28.0-33.3); Mean Corpuscular Volume 91.4 fL (83.0-100.0); Platelet Count 122 K/mcL (140-400); Red Blood Count 5.24 M/mcL (4.19-5.50); Red Cell Distribution Width 12.9 % (11.5-14.5); White Blood Count 17.8 K/mcL (4.3-11.1)
[2021-09-08 04:11] LABS: BUN/Creatinine Ratio 34 (6-26); Blood Urea Nitrogen 26 mg/dL (8-23); Calcium 8.3 mg/dL (8.6-10.3); Carbon Dioxide 26 mEq/L (23-29); Chloride 97 mEq/L (98-107); Glucose 245 mg/dL (70-105); Lymphocytes # 2.5 K/mcL (0.6-4.6); Monocytes # 1.1 K/mcL (0.0-1.3); Neutrophils # 13.9 K/mcL (1.6-8.9); Osmolality,Calculated 285 (280-300); Platelet Estimate Slight Decrease (Normal); Potassium 4.8 mEq/L (3.5-5.1); Reactive Lymphocytes Present (Not Present); Sodium 131 mEq/L (136-145); eGFR For African Americans > 60 (> 60); eGFR For Non-African Americans > 60 (> 60)
[2021-09-08] MEDS: Budesonide/Formoterol 160/4.5 1 PUFF INH IH SCH ×2 (08:12→20:10)
[2021-09-08] MEDS: Sacubitril/Valsartan 24/26 MG 1 TABLET PO SCH ×2 (08:53→20:07)
[2021-09-08] MEDS: dexAMETHasone 4 MG TABLET PO SCH (08:53)
[2021-09-08] MEDS: Cyanocobalamin (B-12) 1,000 MCG TABLET PO SCH (08:53)
[2021-09-08] MEDS: Fluticasone Propionate Nasal 50 MCG/SPRAY BOTTLE NS SCH (08:54)
[2021-09-08] MEDS: BuPROPion XL (24 HR) 150 MG TABLET PO SCH (08:54)
[2021-09-08] MEDS: Furosemide 40 MG TABLET PO SCH (08:54)
[2021-09-08] MEDS: Aspirin Enteric Coated 81 MG Tablet PO SCH (08:54)
[2021-09-09] MEDS: Budesonide/Formoterol 160/4.5 1 PUFF INH IH SCH ×2 (08:10→20:47)
[2021-09-09] MEDS: dexAMETHasone 4 MG TABLET PO SCH (08:41)
[2021-09-09] MEDS: Cyanocobalamin (B-12) 1,000 MCG TABLET PO SCH (08:41)
[2021-09-09] MEDS: Aspirin Enteric Coated 81 MG Tablet PO SCH (08:42)
[2021-09-09] MEDS: Furosemide 40 MG TABLET PO SCH (08:42)
[2021-09-09] MEDS: Sacubitril/Valsartan 24/26 MG 1 TABLET PO SCH ×2 (08:42→21:58)
[2021-09-09] MEDS: BuPROPion XL (24 HR) 150 MG TABLET PO SCH (08:44)
[2021-09-09] MEDS: Fluticasone Propionate Nasal 50 MCG/SPRAY BOTTLE NS SCH (08:47)
[2021-09-10] MEDS: BuPROPion XL (24 HR) 150 MG TABLET PO SCH (08:48)
[2021-09-10] MEDS: Furosemide 40 MG TABLET PO SCH (08:48)
[2021-09-10] MEDS: Aspirin Enteric Coated 81 MG Tablet PO SCH (08:48)
[2021-09-10] MEDS: Fluticasone Propionate Nasal 50 MCG/SPRAY BOTTLE NS SCH (08:48)
[2021-09-10] MEDS: Cyanocobalamin (B-12) 1,000 MCG TABLET PO SCH (08:48)
[2021-09-10] MEDS: Sacubitril/Valsartan 24/26 MG 1 TABLET PO SCH ×2 (08:48→21:20)
[2021-09-10] MEDS: Budesonide/Formoterol 160/4.5 1 PUFF INH IH SCH ×2 (08:49→20:52)
[2021-09-11 05:59] LABS: Eosinophils % 1.1 %
[2021-09-11 06:00] LABS: Eosinophils # 0.1 K/mcL (0.0-0.6); Hematocrit 45.3 % (37.5-50.1); Hemoglobin 15.1 g/dL (12.9-16.9); Mean Corpuscular HGB Conc 33.3 g/dL (31.6-35.5); Mean Corpuscular Hemoglobin 31.1 pg (28.0-33.3); Mean Corpuscular Volume 93.4 fL (83.0-100.0); Mean Platelet Volume 9.9 fL (9.4-12.4); Red Blood Count 4.85 M/mcL (4.19-5.50); Segmented Neutrophils % 69.4 %; White Blood Count 11.3 K/mcL (4.3-11.1)
[2021-09-11 06:01] LABS: Basophils % 0.1 %; Immature Granulocytes % 9.4 % (0-4); Lymphocytes # 1.6 K/mcL (0.6-4.6); Lymphocytes % 14.4 %; Monocytes # 0.6 K/mcL (0.0-1.3); Monocytes % 5.6 %; Neutrophils # 7.8 K/mcL (1.6-8.9); Platelet Count 87 K/mcL (140-400)
[2021-09-11 06:13] LABS: BUN/Creatinine Ratio 28 (6-26); Blood Urea Nitrogen 27 mg/dL (8-23); Calcium 8.1 mg/dL (8.6-10.3); Carbon Dioxide 31 mEq/L (23-29); Chloride 99 mEq/L (98-107); Glucose 179 mg/dL (70-105); Osmolality,Calculated 290 (280-300); Potassium 4.5 mEq/L (3.5-5.1); Sodium 135 mEq/L (136-145); eGFR For African Americans > 60 (> 60); eGFR For Non-African Americans > 60 (> 60)
[2021-09-11 06:49] LABS: Platelet Estimate Decreased (Normal); Poikilocytosis 1+ (Not Present); Tear Drop Cells 1+ (Not Present)
[2021-09-11] MEDS: Budesonide/Formoterol 160/4.5 1 PUFF INH IH SCH ×2 (07:34→19:46)
[2021-09-11] MEDS: Cyanocobalamin (B-12) 1,000 MCG TABLET PO SCH (09:50)
[2021-09-11] MEDS: Aspirin Enteric Coated 81 MG Tablet PO SCH (09:50)
[2021-09-11] MEDS: BuPROPion XL (24 HR) 150 MG TABLET PO SCH (09:50)
[2021-09-11] MEDS: Furosemide 40 MG TABLET PO SCH (09:50)
[2021-09-11] MEDS: Fluticasone Propionate Nasal 50 MCG/SPRAY BOTTLE NS SCH (09:51)
[2021-09-11] MEDS: Saline Nasal Spray 44 ML BOTTLE NS PRN (09:51)
[2021-09-11] MEDS: Sacubitril/Valsartan 24/26 MG 1 TABLET PO SCH ×2 (09:53→20:24)
[2021-09-11] MEDS: Acetaminophen 325 MG TABLET PO PRN (17:40)
[2021-09-12 06:45] LABS: Basophils % 0.8 %; Red Cell Distribution Width 13.2 % (11.5-14.5)
[2021-09-12 06:47] LABS: Basophils # 0.1 K/mcL (0.0-0.2); Eosinophils # 0.2 K/mcL (0.0-0.6); Eosinophils % 2.5 %; Hematocrit 43.8 % (37.5-50.1); Hemoglobin 14.5 g/dL (12.9-16.9); Immature Granulocytes % 7.3 % (0-4); Immature Platelets 4.7 % (1.1-6.1); Lymphocytes % 13.2 %; Mean Corpuscular HGB Conc 33.1 g/dL (31.6-35.5); Mean Corpuscular Hemoglobin 31.5 pg (28.0-33.3); Mean Platelet Volume 9.7 fL (9.4-12.4); Monocytes # 0.4 K/mcL (0.0-1.3); Monocytes % 5.6 %; Red Blood Count 4.61 M/mcL (4.19-5.50); Segmented Neutrophils % 70.6 %; White Blood Count 7.3 K/mcL (4.3-11.1)
[2021-09-12 06:49] LABS: Neutrophils # 5.2 K/mcL (1.6-8.9); Platelet Count 76 K/mcL (140-400)
[2021-09-12 06:59] LABS: BUN/Creatinine Ratio 34 (6-26); Blood Urea Nitrogen 25 mg/dL (8-23); Calcium 7.8 mg/dL (8.6-10.3); Carbon Dioxide 32 mEq/L (23-29); Chloride 98 mEq/L (98-107); Glucose 249 mg/dL (70-105); Osmolality,Calculated 291 (280-300); Potassium 3.6 mEq/L (3.5-5.1); Sodium 134 mEq/L (136-145); eGFR For African Americans > 60 (> 60); eGFR For Non-African Americans > 60 (> 60)
[2021-09-12 07:13] LABS: Platelet Estimate Decreased (Normal)
[2021-09-12] MEDS: Budesonide/Formoterol 160/4.5 1 PUFF INH IH SCH ×2 (07:55→20:48)
[2021-09-12] MEDS: Aspirin Enteric Coated 81 MG Tablet PO SCH (08:33)
[2021-09-12] MEDS: Furosemide 40 MG TABLET PO SCH (08:34)
[2021-09-12] MEDS: Cyanocobalamin (B-12) 1,000 MCG TABLET PO SCH (08:34)
[2021-09-12] MEDS: BuPROPion XL (24 HR) 150 MG TABLET PO SCH (08:34)
[2021-09-12] MEDS: Sacubitril/Valsartan 24/26 MG 1 TABLET PO SCH ×2 (08:34→21:02)
[2021-09-12] MEDS: Fluticasone Propionate Nasal 50 MCG/SPRAY BOTTLE NS SCH (08:34)
[2021-09-12] MEDS: Furosemide 40 MG/4 ML VIAL IVP SCH (14:04)
[2021-09-12] MEDS: Melatonin 3 MG TABLET PO PRN (21:12)
[2021-09-12] MEDS: Acetaminophen 325 MG TABLET PO PRN (21:12)
[2021-09-13 05:52] LABS: Basophils % 0.7 %
[2021-09-13 05:54] LABS: Basophils # 0.1 K/mcL (0.0-0.2); Eosinophils # 0.2 K/mcL (0.0-0.6); Hematocrit 42.6 % (37.5-50.1); Hemoglobin 14.3 g/dL (12.9-16.9); Immature Granulocytes % 6.9 % (0-4); Immature Platelets 3.7 % (1.1-6.1); Lymphocytes # 1.1 K/mcL (0.6-4.6); Mean Corpuscular HGB Conc 33.6 g/dL (31.6-35.5); Mean Corpuscular Hemoglobin 31.1 pg (28.0-33.3); Mean Corpuscular Volume 92.6 fL (83.0-100.0); Mean Platelet Volume 9.5 fL (9.4-12.4); Monocytes # 0.4 K/mcL (0.0-1.3); Monocytes % 5.4 %; Neutrophils # 4.8 K/mcL (1.6-8.9); Red Cell Distribution Width 13.1 % (11.5-14.5); White Blood Count 7.1 K/mcL (4.3-11.1)
[2021-09-13 05:58] LABS: Platelet Count 66 K/mcL (140-400)
[2021-09-13 05:59] LABS: Platelet Estimate Decreased (Normal)
[2021-09-13 06:17] LABS: BUN/Creatinine Ratio 30 (6-26); Blood Urea Nitrogen 22 mg/dL (8-23); Calcium 7.8 mg/dL (8.6-10.3); Carbon Dioxide 31 mEq/L (23-29); Chloride 97 mEq/L (98-107); Glucose 184 mg/dL (70-105); Osmolality,Calculated 286 (280-300); Potassium 3.9 mEq/L (3.5-5.1); Sodium 134 mEq/L (136-145); eGFR For African Americans > 60 (> 60); eGFR For Non-African Americans > 60 (> 60)
[2021-09-13] MEDS: Budesonide/Formoterol 160/4.5 1 PUFF INH IH SCH ×2 (07:19→21:11)
[2021-09-13] MEDS: Aspirin Enteric Coated 81 MG Tablet PO SCH (09:14)
[2021-09-13] MEDS: BuPROPion XL (24 HR) 150 MG TABLET PO SCH (09:14)
[2021-09-13] MEDS: Acetaminophen 325 MG TABLET PO PRN ×2 (09:14→16:33)
[2021-09-13] MEDS: Sacubitril/Valsartan 24/26 MG 1 TABLET PO SCH (09:14)
[2021-09-13] MEDS: Cyanocobalamin (B-12) 1,000 MCG TABLET PO SCH (09:15)
[2021-09-13] MEDS: Furosemide 40 MG/4 ML VIAL IVP SCH (09:15)
[2021-09-13] MEDS: Saline Nasal Spray 44 ML BOTTLE NS PRN (09:16)
[2021-09-13] MEDS: Fluticasone Propionate Nasal 50 MCG/SPRAY BOTTLE NS SCH (10:53)
[2021-09-13] MEDS ORDERED: Isovue-370 500 ML BOTTLE IVP ONE (12:51)
[2021-09-13] MEDS: 0.9 % Sodium Chloride 500 ML IVC PRN (15:33)
[2021-09-13] MEDS ORDERED: Albumin 25% 25gram/100mL 25 GM/100 ML IV.SOLN IVC SCH (16:15)
[2021-09-13] MEDS: Albumin Human 5% 12.5 GM/250 ML IV.SOLN IVC SCH ×2 (17:31→21:02)
[2021-09-14] MEDS: Budesonide/Formoterol 160/4.5 1 PUFF INH IH SCH ×2 (07:55→19:55)
[2021-09-14] MEDS: Cyanocobalamin (B-12) 1,000 MCG TABLET PO SCH (09:22)
[2021-09-14] MEDS: Aspirin Enteric Coated 81 MG Tablet PO SCH (09:22)
[2021-09-14] MEDS: BuPROPion XL (24 HR) 150 MG TABLET PO SCH (09:22)
[2021-09-14] MEDS: Fluticasone Propionate Nasal 50 MCG/SPRAY BOTTLE NS SCH (09:23)
[2021-09-14 09:56] LABS: BUN/Creatinine Ratio 28 (6-26); Blood Urea Nitrogen 21 mg/dL (8-23); Calcium 7.8 mg/dL (8.6-10.3); Carbon Dioxide 32 mEq/L (23-29); Chloride 97 mEq/L (98-107); Glucose 136 mg/dL (70-105); Magnesium 1.7 mg/dL (1.6-2.6); Osmolality,Calculated 279 (280-300); Sodium 132 mEq/L (136-145); eGFR For African Americans > 60 (> 60); eGFR For Non-African Americans > 60 (> 60)
[2021-09-14] MEDS ORDERED: Perflutren Lipid Microsphere 1.3 ML in 0.9 % Sodium Chloride 8.7 ML IVP PRN (13:21)
[2021-09-14] MEDS ORDERED: *HR* Heparin 5,000 UNIT/ML VIAL SQ SCH (18:00)
[2021-09-14] MEDS: Acetaminophen 325 MG TABLET PO PRN (20:37)
[2021-09-15] MEDS: Acetaminophen 325 MG TABLET PO PRN ×2 (05:13→17:01)
[2021-09-15] MEDS: Budesonide/Formoterol 160/4.5 1 PUFF INH IH SCH ×2 (08:06→20:05)
[2021-09-15] MEDS: Aspirin Enteric Coated 81 MG Tablet PO SCH (08:14)
[2021-09-15] MEDS: Cyanocobalamin (B-12) 1,000 MCG TABLET PO SCH (08:14)
[2021-09-15] MEDS: BuPROPion XL (24 HR) 150 MG TABLET PO SCH (08:15)
[2021-09-15] MEDS: Fluticasone Propionate Nasal 50 MCG/SPRAY BOTTLE NS SCH (08:15)
[2021-09-15] MEDS ORDERED: Furosemide 40 MG TABLET PO SCH (11:00)
[2021-09-15 12:15] LABS: Monocytes % 8.8 %; Red Cell Distribution Width 13.3 % (11.5-14.5)
[2021-09-15 12:16] LABS: Basophils % 0.6 %; Eosinophils # 0.2 K/mcL (0.0-0.6); Eosinophils % 4.9 %; Hematocrit 39.5 % (37.5-50.1); Immature Granulocytes % 3.7 % (0-4); Immature Platelets 5.3 % (1.1-6.1); Lymphocytes # 0.5 K/mcL (0.6-4.6); Lymphocytes % 11.4 %; Mean Corpuscular HGB Conc 32.9 g/dL (31.6-35.5); Mean Corpuscular Hemoglobin 31.5 pg (28.0-33.3); Mean Corpuscular Volume 95.6 fL (83.0-100.0); Mean Platelet Volume 9.7 fL (9.4-12.4); Monocytes # 0.4 K/mcL (0.0-1.3); Neutrophils # 3.3 K/mcL (1.6-8.9); Red Blood Count 4.13 M/mcL (4.19-5.50); Segmented Neutrophils % 70.6 %; White Blood Count 4.7 K/mcL (4.3-11.1)
[2021-09-15 12:17] LABS: Platelet Count 70 K/mcL (140-400)
[2021-09-15] MEDS: Melatonin 3 MG TABLET PO PRN (23:11)
[2021-09-16] MEDS ORDERED: traZODone 50 MG TABLET PO ONE (02:39)
[2021-09-16] MEDS: Budesonide/Formoterol 160/4.5 1 PUFF INH IH SCH ×2 (08:10→20:49)
[2021-09-16 09:15] LABS: Hemoglobin 12.8 g/dL (12.9-16.9); Mean Corpuscular HGB Conc 32.8 g/dL (31.6-35.5); Mean Corpuscular Hemoglobin 31.2 pg (28.0-33.3); Mean Corpuscular Volume 95.1 fL (83.0-100.0)
[2021-09-16 09:17] LABS: Basophils % 0.7 %; Eosinophils # 0.2 K/mcL (0.0-0.6); Eosinophils % 4.3 %; Immature Granulocytes % 4.5 % (0-4); Immature Platelets 4.7 % (1.1-6.1); Lymphocytes # 0.7 K/mcL (0.6-4.6); Lymphocytes % 15.9 %; Mean Platelet Volume 9.8 fL (9.4-12.4); Monocytes # 0.5 K/mcL (0.0-1.3); Monocytes % 10.1 %; Neutrophils # 2.9 K/mcL (1.6-8.9); Red Cell Distribution Width 13.4 % (11.5-14.5); Segmented Neutrophils % 64.5 %; White Blood Count 4.5 K/mcL (4.3-11.1)
[2021-09-16 09:25] LABS: INR 1.1; Prothrombin Time 12.3 Seconds (9.4-12.1)
[2021-09-16 09:26] LABS: Platelet Count 74 K/mcL (140-400)
[2021-09-16 09:33] LABS: BUN/Creatinine Ratio 25 (6-26); Blood Urea Nitrogen 19 mg/dL (8-23); Calcium 7.9 mg/dL (8.6-10.3); Carbon Dioxide 31 mEq/L (23-29); Chloride 98 mEq/L (98-107); Glucose 123 mg/dL (70-105); Osmolality,Calculated 280 (280-300); Potassium 4.5 mEq/L (3.5-5.1); Sodium 133 mEq/L (136-145); eGFR For African Americans > 60 (> 60); eGFR For Non-African Americans > 60 (> 60)
[2021-09-16] MEDS: Aspirin Enteric Coated 81 MG Tablet PO SCH (09:48)
[2021-09-16] MEDS: BuPROPion XL (24 HR) 150 MG TABLET PO SCH (09:48)
[2021-09-16] MEDS: Cyanocobalamin (B-12) 1,000 MCG TABLET PO SCH (09:48)
[2021-09-16] MEDS: Fluticasone Propionate Nasal 50 MCG/SPRAY BOTTLE NS SCH (09:48)
[2021-09-16] MEDS ORDERED: Warfarin perPT PO PRN (18:00)
[2021-09-16] MEDS ORDERED: *HR* Warfarin 5 MG TABLET PO ONE (18:00)
[2021-09-16] MEDS: Melatonin 3 MG TABLET PO PRN (21:17)
[2021-09-17 03:17] LABS: Basophils % 0.6 %
[2021-09-17 03:20] LABS: Eosinophils # 0.2 K/mcL (0.0-0.6); Eosinophils % 3.4 %; Hematocrit 38.2 % (37.5-50.1); Hemoglobin 12.4 g/dL (12.9-16.9); Immature Platelets 3.5 % (1.1-6.1); Lymphocytes # 0.7 K/mcL (0.6-4.6); Mean Corpuscular HGB Conc 32.5 g/dL (31.6-35.5); Mean Corpuscular Hemoglobin 30.6 pg (28.0-33.3); Mean Corpuscular Volume 94.3 fL (83.0-100.0); Mean Platelet Volume 9.8 fL (9.4-12.4); Monocytes # 0.6 K/mcL (0.0-1.3); Monocytes % 11.9 %; Neutrophils # 3.1 K/mcL (1.6-8.9); Red Blood Count 4.05 M/mcL (4.19-5.50); Red Cell Distribution Width 13.2 % (11.5-14.5); Segmented Neutrophils % 65.1 %; White Blood Count 4.7 K/mcL (4.3-11.1)
[2021-09-17 03:21] LABS: Platelet Count 90 K/mcL (140-400)
[2021-09-17 03:26] LABS: INR 1.2; Prothrombin Time 13.7 Seconds (9.4-12.1)
[2021-09-17 03:56] LABS: BUN/Creatinine Ratio 29 (6-26); Blood Urea Nitrogen 22 mg/dL (8-23); Calcium 8.2 mg/dL (8.6-10.3); Carbon Dioxide 29 mEq/L (23-29); Chloride 98 mEq/L (98-107); Glucose 135 mg/dL (70-105); Osmolality,Calculated 281 (280-300); Potassium 4.7 mEq/L (3.5-5.1); Sodium 133 mEq/L (136-145); eGFR For African Americans > 60 (> 60); eGFR For Non-African Americans > 60 (> 60)
[2021-09-17] MEDS: Budesonide/Formoterol 160/4.5 1 PUFF INH IH SCH ×2 (07:50→20:28)
[2021-09-17] MEDS: Aspirin Enteric Coated 81 MG Tablet PO SCH (08:35)
[2021-09-17] MEDS: BuPROPion XL (24 HR) 150 MG TABLET PO SCH (08:35)
[2021-09-17] MEDS: Furosemide 20 MG TABLET PO SCH (08:35)
[2021-09-17] MEDS: Cyanocobalamin (B-12) 1,000 MCG TABLET PO SCH (08:35)
[2021-09-17] MEDS: Fluticasone Propionate Nasal 50 MCG/SPRAY BOTTLE NS SCH (08:36)
[2021-09-17] MEDS ORDERED: Furosemide 20 MG/2 ML VIAL IVP SCH (09:00)
[2021-09-17] MEDS: Acetaminophen 325 MG TABLET PO PRN (16:59)
[2021-09-17] MEDS: 0.9 % Sodium Chloride 500 ML IVC PRN (17:45)
[2021-09-17] MEDS ORDERED: *HR* Warfarin 2.5 MG TABLET PO ONE (18:00)
[2021-09-18] MEDS: Acetaminophen 325 MG TABLET PO PRN ×2 (05:43→19:34)
[2021-09-18] MEDS: Budesonide/Formoterol 160/4.5 1 PUFF INH IH SCH ×2 (07:37→20:27)
[2021-09-18 07:48] LABS: INR 1.8
[2021-09-18] MEDS: Cyanocobalamin (B-12) 1,000 MCG TABLET PO SCH (09:27)
[2021-09-18] MEDS: Aspirin Enteric Coated 81 MG Tablet PO SCH (09:27)
[2021-09-18] MEDS: BuPROPion XL (24 HR) 150 MG TABLET PO SCH (09:27)
[2021-09-18] MEDS: Furosemide 20 MG TABLET PO SCH (09:27)
[2021-09-18] MEDS: Fluticasone Propionate Nasal 50 MCG/SPRAY BOTTLE NS SCH (09:32)
[2021-09-18] MEDS ORDERED: *HR* Warfarin 2 MG TABLET PO ONE (18:00)
[2021-09-19] MEDS ORDERED: Ringers Solution, Lactated 500 ML IVC ONE (00:32)
[2021-09-19 01:07] LABS: Hematocrit 35.3 % (37.5-50.1); Hemoglobin 11.8 g/dL (12.9-16.9); Immature Platelets 3.9 % (1.1-6.1); Mean Corpuscular HGB Conc 33.4 g/dL (31.6-35.5); Mean Corpuscular Hemoglobin 31.3 pg (28.0-33.3); Mean Corpuscular Volume 93.6 fL (83.0-100.0); Mean Platelet Volume 9.7 fL (9.4-12.4); Red Blood Count 3.77 M/mcL (4.19-5.50); Red Cell Distribution Width 13.3 % (11.5-14.5); White Blood Count 3.7 K/mcL (4.3-11.1)
[2021-09-19 01:21] LABS: INR 1.8; Prothrombin Time 20.2 Seconds (9.4-12.1)
[2021-09-19 02:48] LABS: BUN/Creatinine Ratio 30 (6-26); Blood Urea Nitrogen 21 mg/dL (8-23); Calcium 8.1 mg/dL (8.6-10.3); Carbon Dioxide 30 mEq/L (23-29); Chloride 98 mEq/L (98-107); Glucose 135 mg/dL (70-105); Osmolality,Calculated 285 (280-300); Potassium 4.3 mEq/L (3.5-5.1); Sodium 135 mEq/L (136-145); eGFR For African Americans > 60 (> 60); eGFR For Non-African Americans > 60 (> 60)
[2021-09-19] MEDS: Budesonide/Formoterol 160/4.5 1 PUFF INH IH SCH ×2 (07:29→20:10)
[2021-09-19] MEDS: Cyanocobalamin (B-12) 1,000 MCG TABLET PO SCH (10:07)
[2021-09-19] MEDS: Aspirin Enteric Coated 81 MG Tablet PO SCH (10:07)
[2021-09-19] MEDS: Furosemide 20 MG TABLET PO SCH (10:07)
[2021-09-19] MEDS: BuPROPion XL (24 HR) 150 MG TABLET PO SCH (10:08)
[2021-09-19] MEDS: Fluticasone Propionate Nasal 50 MCG/SPRAY BOTTLE NS SCH (10:08)
[2021-09-19] MEDS ORDERED: *HR* Warfarin 2.5 MG TABLET PO ONE (18:00)
[2021-09-19] MEDS: Acetaminophen 325 MG TABLET PO PRN (18:38)
[2021-09-20 04:27] LABS: INR 2.1; Prothrombin Time 23.3 Seconds (9.4-12.1)
[2021-09-20] MEDS: BuPROPion XL (24 HR) 150 MG TABLET PO SCH (07:22)
[2021-09-20] MEDS: Cyanocobalamin (B-12) 1,000 MCG TABLET PO SCH (07:22)
[2021-09-20] MEDS: Furosemide 20 MG TABLET PO SCH (07:22)
[2021-09-20] MEDS: Aspirin Enteric Coated 81 MG Tablet PO SCH (07:23)
[2021-09-20] MEDS: Acetaminophen 325 MG TABLET PO PRN (07:23)
[2021-09-20] MEDS: Fluticasone Propionate Nasal 50 MCG/SPRAY BOTTLE NS SCH (07:23)
[2021-09-20] MEDS: Budesonide/Formoterol 160/4.5 1 PUFF INH IH SCH ×2 (07:36→20:08)
[2021-09-20] MEDS ORDERED: *HR* Warfarin 2.5 MG TABLET PO ONE (18:00)
[2021-09-21 07:03] VITALS: BP 112/52; PULSE 61; TEMP 98.3
[2021-09-21] MEDS: Budesonide/Formoterol 160/4.5 1 PUFF INH IH SCH (08:05)
[2021-09-21 08:07] VITALS: O2SAT 95
[2021-09-21 08:28] LABS: INR 2.4
[2021-09-21] MEDS: Cyanocobalamin (B-12) 1,000 MCG TABLET PO SCH (10:00)
[2021-09-21] MEDS: Furosemide 20 MG TABLET PO SCH (10:00)
[2021-09-21] MEDS: BuPROPion XL (24 HR) 150 MG TABLET PO SCH (10:00)
[2021-09-21] MEDS: Aspirin Enteric Coated 81 MG Tablet PO SCH (10:00)
[2021-09-21] MEDS: Fluticasone Propionate Nasal 50 MCG/SPRAY BOTTLE NS SCH (10:01)
[2021-09-21] MEDS ORDERED: *HR* Warfarin 1 MG TABLET PO ONE (18:00)
== END 2021-09-21 14:40 | DRG 177 ==
LOC: EMEROOARM 14:24 → 3NENU 14:24 → SUATTDRO 08-20 08:12
PROVIDERS: ADMIT Student in an Organized Health Care Education/Training Program; ATTEND Internal Medicine

== ENCOUNTER 2021-09-24 00:57 | Inpatient (IN) ==
[2021-09-24] MEDS ORDERED: Ipratropium/Albuterol Neb 3 ML ONE (01:08)
[2021-09-24] MEDS ORDERED: Budesonide Neb 0.5 MG/2 ML IH ONE ×2 (01:08)
[2021-09-24] MEDS ORDERED: Ipratropium/Albuterol Neb 3 ML IH ONE ×2 (01:08→08:03)
[2021-09-24 01:20] LABS: ABG Base Excess 4 mEq/L (-2 to 3); ABG HCO3 31 mEq/L (21-27); ABG Oxygen Saturation 99 % (95-98); ABG PCO2 53 mmHg (35-45); ABG PH 7.37 pH Units (7.32-7.45); ABG PO2 157 mmHg (85-104); ABG TCO2 32 mEq/L (20-26)
[2021-09-24 01:30] LABS: Basophils # 0.1 K/mcL (0.0-0.2); Basophils % 1.2 %; Eosinophils # 0.2 K/mcL (0.0-0.6); Eosinophils % 4.2 %; Hemoglobin 13.1 g/dL (12.9-16.9); Lymphocytes # 1.5 K/mcL (0.6-4.6); Lymphocytes % 27.9 %; Mean Corpuscular HGB Conc 32.8 g/dL (31.6-35.5); Mean Corpuscular Volume 94.6 fL (83.0-100.0); Mean Platelet Volume 9.1 fL (9.4-12.4); Monocytes # 0.5 K/mcL (0.0-1.3); Monocytes % 10.2 %; Neutrophils # 2.6 K/mcL (1.6-8.9); Platelet Count 206 K/mcL (140-400); Red Blood Count 4.23 M/mcL (4.19-5.50); Segmented Neutrophils % 50.5 %; White Blood Count 5.2 K/mcL (4.3-11.1)
[2021-09-24 01:31] LABS: VBG HCO3 31 mEq/L (21-27); VBG PCO2 53 mmHg (41-51); VBG PH 7.37 pH Units (7.32-7.42); VBG PO2 50 mmHg (25-50)
[2021-09-24 01:37] LABS: INR 1.4
[2021-09-24 01:48] LABS: Platelet Estimate Normal (Normal)
[2021-09-24 01:55] LABS: Alanine Aminotransferase 74 Units/L (7-52); Albumin 3.1 g/dL (3.5-5.7); Albumin/Globulin Ratio 1.1 (1.1-2.2); Alkaline Phosphatase 130 Units/L (34-104); Aspartate Amino Transferase 23 Units/L (13-39); BUN/Creatinine Ratio 18 (6-26); Bilirubin,Total 1.3 mg/dL (0.3-1.0); Blood Urea Nitrogen 15 mg/dL (8-23); Calcium 8.6 mg/dL (8.6-10.3); Carbon Dioxide 30 mEq/L (23-29); Chloride 102 mEq/L (98-107); Globulin 2.9 g/dL (2.4-3.5); Glucose 120 mg/dL (70-105); Osmolality,Calculated 288 (280-300); Potassium 4.1 mEq/L (3.5-5.1); Sodium 138 mEq/L (136-145); eGFR For African Americans > 60 (> 60); eGFR For Non-African Americans > 60 (> 60)
[2021-09-24 01:59] LABS: Troponin I 0.04 ng/mL (< 0.04)
[2021-09-24] MEDS ORDERED: Isovue-370 500 ML BOTTLE IVP ONE (02:28)
[2021-09-24] MEDS ORDERED: Furosemide 20 MG/2 ML VIAL IVP ONE ×2 (02:28→05:31)
[2021-09-24 03:28] LABS: Adenovirus Not Detected (Not Detect); Bordetella Pertussis Not Detected (Not Detect); Chlamydophila pneumoniae Not Detected (Not Detect); Coronavirus 229E Not Detected (Not Detect); Coronavirus HKU1 Not Detected (Not Detect); Coronavirus NL63 Not Detected (Not Detect); Coronavirus OC43 Not Detected (Not Detect); Human Metapneumovirus Not Detected (Not Detect); Human Rhinovirus/Enterovirus Not Detected (Not Detect); Influenza A Subtype 2009 H1 Not Detected (Not Detect); Influenza B Not Detected (Not Detect); Mycoplasma pneumoniae Not Detected (Not Detect); Parainfluenza Virus 1 Not Detected (Not Detect); Parainfluenza Virus 2 Not Detected (Not Detect); Parainfluenza Virus 3 Not Detected (Not Detect); Parainfluenza Virus 4 Not Detected (Not Detect); Respiratory Syncytial Virus Not Detected (Not Detect); SARS-CoV-2 Not Detected (Not Detect)
[2021-09-24 04:38] LABS: Bilirubin,Urine Negative (Negative); Blood,Urine Negative (Negative); Clarity,Urine Clear (Clear); Color,Urine Light-Yellow (Yellow); Glucose,Urine (UA) >=1000 mg/dL (Normal); Ketones,Urine Negative (Negative); Leukocyte Esterase,Urine Negative (Negative); Nitrite,Urine Negative (Negative); PH,Urine 6.5 pH Units (5.0-8.0); Protein,Urine Negative (Neg-Trace); RBC,Urine 0-3 per hpf (0-3); Specific Gravity,Urine > 1.030 (1.010-1.025); Squamous Epithelial Cell,Urine Few per hpf (None-Few); Urobilinogen,Urine Normal (Normal); WBC,Urine 0-3 per hpf (0-3)
[2021-09-24] MEDS ORDERED: Ondansetron ODT 4 MG TAB.RAPDIS SL PRN (04:40)
[2021-09-24] MEDS ORDERED: Naloxone 0.4 MG/ML INJ IVP PRN (04:40)
[2021-09-24] MEDS ORDERED: Dextrose Gel 15 GM/37.5 ML TUBE PO PRN ×2 (05:52)
[2021-09-24] MEDS ORDERED: *HR* Dextrose 50 % in Water (Syg) 50 ML SYRINGE IVP PRN (05:52)
[2021-09-24] MEDS ORDERED: D5% in Water 1,000 ML IVC PRN (05:52)
[2021-09-24] MEDS: *HR* Heparin 5,000 UNIT/ML VIAL SQ SCH ×3 (06:02→20:10)
[2021-09-24] MEDS ORDERED: Furosemide 40 MG/4 ML VIAL ONE (08:02)
[2021-09-24] MEDS ORDERED: Furosemide 40 MG/4 ML VIAL IVP ONE (08:02)
[2021-09-24] MEDS: Insulin LISPRO 300 UNITS/3 ML VIAL SUBQ SCH ×4 (09:00→19:48)
[2021-09-24] MEDS: Aspirin Enteric Coated 81 MG Tablet PO SCH (09:01)
[2021-09-24] MEDS: Doxycycline 100 MG in 0.9 % Sodium Chloride Mini Bag 100 ML IVPB SCH ×2 (09:15→20:07)
[2021-09-24] MEDS: Haloperidol Lactate 5 MG/ML VIAL IM PRN ×2 (09:15→17:20)
[2021-09-24] MEDS: MethylPREDNISolone 40 MG/ML VIAL IVP SCH ×2 (11:28→17:37)
[2021-09-24] MEDS ORDERED: *HR* Warfarin 2 MG TABLET PO ONE (18:00)
[2021-09-24] MEDS ORDERED: Warfarin perPT PO PRN (18:00)
[2021-09-24] MEDS ORDERED: Doxycycline 100 MG in 0.9 % Sodium Chloride Mini Bag 100 ML IVPB SCH (18:00)
[2021-09-24] MEDS: Sacubitril/Valsartan 24/26 MG 1 TABLET PO SCH (20:07)
[2021-09-24] MEDS: Furosemide 20 MG/2 ML VIAL IVP SCH (20:10)
[2021-09-24] MEDS ORDERED: Haloperidol Lactate 5 MG/ML VIAL IM ONE ×2 (20:39→21:09)
[2021-09-24] MEDS ORDERED: Doxycycline 100 MG CAPSULE PO SCH (23:45)
[2021-09-25] MEDS: MethylPREDNISolone 40 MG/ML VIAL IVP SCH ×4 (00:46→17:10)
[2021-09-25 02:37] LABS: Basophils % 0.3 %; Eosinophils % 0.1 %; Hematocrit 37.3 % (37.5-50.1); Hemoglobin 12.2 g/dL (12.9-16.9); Immature Granulocytes % 2.8 % (0-4); Lymphocytes # 0.7 K/mcL (0.6-4.6); Lymphocytes % 10.2 %; Mean Corpuscular HGB Conc 32.7 g/dL (31.6-35.5); Mean Corpuscular Hemoglobin 30.8 pg (28.0-33.3); Mean Corpuscular Volume 94.2 fL (83.0-100.0); Mean Platelet Volume 9.1 fL (9.4-12.4); Monocytes # 0.3 K/mcL (0.0-1.3); Monocytes % 3.7 %; Neutrophils # 5.9 K/mcL (1.6-8.9); Platelet Count 226 K/mcL (140-400); Red Blood Count 3.96 M/mcL (4.19-5.50); Red Cell Distribution Width 14.2 % (11.5-14.5); Segmented Neutrophils % 82.9 %; White Blood Count 7.1 K/mcL (4.3-11.1)
[2021-09-25 02:47] LABS: INR 1.6; Prothrombin Time 17.7 Seconds (9.4-12.1)
[2021-09-25 02:53] LABS: BUN/Creatinine Ratio 25 (6-26); Blood Urea Nitrogen 27 mg/dL (8-23); Calcium 8.2 mg/dL (8.6-10.3); Carbon Dioxide 28 mEq/L (23-29); Chloride 98 mEq/L (98-107); Glucose 169 mg/dL (70-105); Magnesium 1.7 mg/dL (1.6-2.6); Osmolality,Calculated 291 (280-300); Potassium 4.6 mEq/L (3.5-5.1); Sodium 136 mEq/L (136-145); eGFR For African Americans > 60 (> 60); eGFR For Non-African Americans > 60 (> 60)
[2021-09-25] MEDS: *HR* Heparin 5,000 UNIT/ML VIAL SQ SCH (06:23)
[2021-09-25] MEDS: Furosemide 20 MG/2 ML VIAL IVP SCH ×2 (07:26→19:45)
[2021-09-25] MEDS: Insulin LISPRO 300 UNITS/3 ML VIAL SUBQ SCH ×4 (07:26→19:25)
[2021-09-25 11:36] LABS: ABG Base Excess 4 mEq/L (-2 to 3); ABG HCO3 29 mEq/L (21-27); ABG Oxygen Saturation 93 % (95-98); ABG PCO2 48 mmHg (35-45); ABG PO2 67 mmHg (85-104); ABG TCO2 31 mEq/L (20-26)
[2021-09-25] MEDS: Aspirin Enteric Coated 81 MG Tablet PO SCH (11:58)
[2021-09-25] MEDS: Sacubitril/Valsartan 24/26 MG 1 TABLET PO SCH ×2 (11:58→19:44)
[2021-09-25] MEDS: Cyanocobalamin (B-12) 1,000 MCG TABLET PO SCH (11:59)
[2021-09-25] MEDS: Doxycycline 100 MG in 0.9 % Sodium Chloride Mini Bag 100 ML IVPB SCH (12:25)
[2021-09-25] MEDS: Piperacillin/Tazobactam 3.375 GM in 0.9 % Sodium Chloride Mini Bag 100 ML IVPB SCH (17:09)
[2021-09-25] MEDS ORDERED: *HR* Warfarin 2 MG TABLET PO ONE (18:00)
[2021-09-25] MEDS: Melatonin 3 MG TABLET PO PRN (19:44)
[2021-09-26] MEDS: Doxycycline 100 MG in 0.9 % Sodium Chloride Mini Bag 100 ML IVPB SCH ×2 (00:26→11:45)
[2021-09-26] MEDS: MethylPREDNISolone 40 MG/ML VIAL IVP SCH ×4 (00:26→17:19)
[2021-09-26] MEDS: Piperacillin/Tazobactam 3.375 GM in 0.9 % Sodium Chloride Mini Bag 100 ML IVPB SCH ×3 (00:26→17:17)
[2021-09-26 02:46] LABS: INR 1.6; Prothrombin Time 17.4 Seconds (9.4-12.1)
[2021-09-26 02:50] LABS: BUN/Creatinine Ratio 37 (6-26); Blood Urea Nitrogen 43 mg/dL (8-23); Calcium 8.1 mg/dL (8.6-10.3); Carbon Dioxide 27 mEq/L (23-29); Chloride 95 mEq/L (98-107); Glucose 198 mg/dL (70-105); Magnesium 2.4 mg/dL (1.6-2.6); Osmolality,Calculated 290 (280-300); Potassium 4.5 mEq/L (3.5-5.1); Sodium 132 mEq/L (136-145); eGFR For African Americans > 60 (> 60); eGFR For Non-African Americans > 60 (> 60)
[2021-09-26] MEDS: Sacubitril/Valsartan 24/26 MG 1 TABLET PO SCH ×2 (08:24→21:35)
[2021-09-26] MEDS: Cyanocobalamin (B-12) 1,000 MCG TABLET PO SCH (08:25)
[2021-09-26] MEDS: Aspirin Enteric Coated 81 MG Tablet PO SCH (08:25)
[2021-09-26] MEDS: BuPROPion XL (24 HR) 150 MG TABLET PO SCH (08:25)
[2021-09-26] MEDS: Insulin LISPRO 300 UNITS/3 ML VIAL SUBQ SCH ×4 (08:32→21:35)
[2021-09-26] MEDS ORDERED: BuPROPion SR (12 HR) 150 MG TABLET PO SCH (09:00)
[2021-09-26] MEDS ORDERED: Aspirin 81 MG TAB.CHEW PO SCH (09:00)
[2021-09-26] MEDS ORDERED: *HR* Warfarin 2 MG TABLET PO ONE (18:00)
[2021-09-26] MEDS: Furosemide 20 MG/2 ML VIAL IVP SCH (22:12)
[2021-09-27] MEDS: MethylPREDNISolone 40 MG/ML VIAL IVP SCH ×4 (00:24→17:53)
[2021-09-27] MEDS: Piperacillin/Tazobactam 3.375 GM in 0.9 % Sodium Chloride Mini Bag 100 ML IVPB SCH ×3 (00:24→16:12)
[2021-09-27] MEDS: Doxycycline 100 MG in 0.9 % Sodium Chloride Mini Bag 100 ML IVPB SCH ×2 (00:26→12:16)
[2021-09-27 01:52] LABS: INR 1.7; Prothrombin Time 19.3 Seconds (9.4-12.1)
[2021-09-27 01:53] LABS: BUN/Creatinine Ratio 46 (6-26); Blood Urea Nitrogen 43 mg/dL (8-23); Carbon Dioxide 29 mEq/L (23-29); Chloride 98 mEq/L (98-107); Glucose 203 mg/dL (70-105); Magnesium 2.4 mg/dL (1.6-2.6); Osmolality,Calculated 293 (280-300); Potassium 4.6 mEq/L (3.5-5.1); Sodium 133 mEq/L (136-145); eGFR For African Americans > 60 (> 60); eGFR For Non-African Americans > 60 (> 60)
[2021-09-27] MEDS: Insulin LISPRO 300 UNITS/3 ML VIAL SUBQ SCH ×4 (09:13→21:15)
[2021-09-27] MEDS: Sacubitril/Valsartan 24/26 MG 1 TABLET PO SCH ×2 (09:14→21:13)
[2021-09-27] MEDS: Cyanocobalamin (B-12) 1,000 MCG TABLET PO SCH (09:15)
[2021-09-27] MEDS: BuPROPion XL (24 HR) 150 MG TABLET PO SCH (09:15)
[2021-09-27] MEDS: Aspirin Enteric Coated 81 MG Tablet PO SCH (09:15)
[2021-09-27] MEDS: Furosemide 20 MG/2 ML VIAL IVP SCH ×2 (09:23→21:13)
[2021-09-27] MEDS ORDERED: Doxycycline 100 MG VIAL ONE (12:05)
[2021-09-27] MEDS ORDERED: *HR* Warfarin 3 MG TABLET PO ONE (18:00)
[2021-09-27] MEDS ORDERED: *HR* Warfarin 2 MG TABLET PO ONE (20:00)
[2021-09-27] MEDS: Melatonin 3 MG TABLET PO PRN (22:03)
[2021-09-27] MEDS: Haloperidol Lactate 5 MG/ML VIAL IM PRN (22:44)
[2021-09-27] MEDS ORDERED: *HR* LORazepam 2 MG/ML VIAL IVP ONE (23:59)
[2021-09-28] MEDS: *HR* LORazepam 2 MG/ML VIAL ONE ×2 (00:38→02:57)
[2021-09-28] MEDS: MethylPREDNISolone 40 MG/ML VIAL IVP SCH ×4 (00:39→18:06)
[2021-09-28] MEDS: Doxycycline 100 MG in 0.9 % Sodium Chloride Mini Bag 100 ML IVPB SCH ×2 (00:39→13:37)
[2021-09-28] MEDS: Piperacillin/Tazobactam 3.375 GM in 0.9 % Sodium Chloride Mini Bag 100 ML IVPB SCH ×3 (01:50→16:04)
[2021-09-28] MEDS ORDERED: *HR* LORazepam 2 MG/ML VIAL ONE ×2 (04:38→20:00)
[2021-09-28] MEDS ORDERED: *HR* LORazepam 2 MG/ML VIAL IVP ONE ×4 (04:41→19:58)
[2021-09-28 05:38] LABS: INR 2.2; Prothrombin Time 24.3 Seconds (9.4-12.1)
[2021-09-28 05:52] LABS: BUN/Creatinine Ratio 34 (6-26); Blood Urea Nitrogen 32 mg/dL (8-23); Calcium 8.3 mg/dL (8.6-10.3); Carbon Dioxide 30 mEq/L (23-29); Chloride 102 mEq/L (98-107); Glucose 241 mg/dL (70-105); Magnesium 2.3 mg/dL (1.6-2.6); Osmolality,Calculated 299 (280-300); Potassium 4.6 mEq/L (3.5-5.1); Sodium 137 mEq/L (136-145); eGFR For African Americans > 60 (> 60); eGFR For Non-African Americans > 60 (> 60)
[2021-09-28] MEDS ORDERED: Haloperidol Lactate 5 MG/ML VIAL IM ONE (08:18)
[2021-09-28] MEDS: Furosemide 20 MG/2 ML VIAL IVP SCH ×3 (08:19→20:11)
[2021-09-28] MEDS: Aspirin Enteric Coated 81 MG Tablet PO SCH (08:20)
[2021-09-28] MEDS: Cyanocobalamin (B-12) 1,000 MCG TABLET PO SCH (08:20)
[2021-09-28] MEDS: BuPROPion XL (24 HR) 150 MG TABLET PO SCH (08:20)
[2021-09-28] MEDS: Sacubitril/Valsartan 24/26 MG 1 TABLET PO SCH ×2 (08:20→20:11)
[2021-09-28] MEDS: Insulin LISPRO 300 UNITS/3 ML VIAL SUBQ SCH ×4 (08:21→22:08)
[2021-09-28] MEDS: Haloperidol Lactate 5 MG/ML VIAL IM PRN ×2 (08:39→18:53)
[2021-09-28] MEDS ORDERED: Ziprasidone 20 MG, Closed System Device IM Kit 1 EACH in Water for inj. (sterile) 1 ML IM ONE (10:59)
[2021-09-28 11:51] LABS: ABG Base Excess 5 mEq/L (-2 to 3); ABG HCO3 29 mEq/L (21-27); ABG Oxygen Saturation 95 % (95-98); ABG PCO2 42 mmHg (35-45); ABG PH 7.45 pH Units (7.32-7.45); ABG PO2 73 mmHg (85-104); ABG TCO2 31 mEq/L (20-26)
[2021-09-28 12:12] LABS: VBG HCO3 31 mEq/L (21-27); VBG PCO2 46 mmHg (41-51); VBG PH 7.44 pH Units (7.32-7.42); VBG PO2 205 mmHg (25-50)
[2021-09-28] MEDS ORDERED: *HR* Warfarin 2 MG TABLET PO ONE (18:00)
[2021-09-29] MEDS: Doxycycline 100 MG in 0.9 % Sodium Chloride Mini Bag 100 ML IVPB SCH ×3 (00:34→23:53)
[2021-09-29] MEDS: MethylPREDNISolone 40 MG/ML VIAL IVP SCH ×3 (00:40→21:44)
[2021-09-29] MEDS: Piperacillin/Tazobactam 3.375 GM in 0.9 % Sodium Chloride Mini Bag 100 ML IVPB SCH ×4 (01:44→23:55)
[2021-09-29] MEDS ORDERED: Ziprasidone 5 MG, Closed System Device IM Kit 1 EACH in Water for inj. (sterile) 0.5 ML IM ONE (04:35)
[2021-09-29 05:40] LABS: INR 2.6; Prothrombin Time 28.8 Seconds (9.4-12.1)
[2021-09-29] MEDS: Cyanocobalamin (B-12) 1,000 MCG TABLET PO SCH (07:58)
[2021-09-29] MEDS: BuPROPion XL (24 HR) 150 MG TABLET PO SCH (07:59)
[2021-09-29] MEDS: Sacubitril/Valsartan 24/26 MG 1 TABLET PO SCH ×2 (07:59→21:44)
[2021-09-29] MEDS: Aspirin Enteric Coated 81 MG Tablet PO SCH (07:59)
[2021-09-29] MEDS: Furosemide 20 MG/2 ML VIAL IVP SCH ×4 (08:00→22:19)
[2021-09-29] MEDS: Insulin LISPRO 300 UNITS/3 ML VIAL SUBQ SCH ×4 (08:06→21:49)
[2021-09-29 08:53] LABS: Basophils # 0.1 K/mcL (0.0-0.2); Basophils % 0.8 %; Hematocrit 44.4 % (37.5-50.1); Hemoglobin 14.8 g/dL (12.9-16.9); Immature Granulocytes % 4.4 % (0-4); Lymphocytes # 1.1 K/mcL (0.6-4.6); Mean Corpuscular HGB Conc 33.3 g/dL (31.6-35.5); Mean Corpuscular Hemoglobin 31.2 pg (28.0-33.3); Mean Corpuscular Volume 93.7 fL (83.0-100.0); Mean Platelet Volume 9.1 fL (9.4-12.4); Monocytes # 1.1 K/mcL (0.0-1.3); Monocytes % 8.9 %; Neutrophils # 9.2 K/mcL (1.6-8.9); Nucleated Red Blood Cells 0.2 /100 WBC (0); Platelet Count 360 K/mcL (140-400); Red Blood Count 4.74 M/mcL (4.19-5.50); Segmented Neutrophils % 76.9 %
[2021-09-29] MEDS ORDERED: *HR* Warfarin 1 MG TABLET PO ONE (18:00)
[2021-09-29] MEDS ORDERED: QUEtiapine Fumarate 25 MG TABLET PO SCH (21:00)
[2021-09-30] MEDS ORDERED: Ziprasidone 5 MG, Closed System Device IM Kit 1 EACH in Water for inj. (sterile) 0.5 ML IM ONE (03:06)
[2021-09-30 05:51] LABS: Hematocrit 41.8 % (37.5-50.1); Hemoglobin 13.9 g/dL (12.9-16.9); Mean Corpuscular HGB Conc 33.3 g/dL (31.6-35.5); Mean Corpuscular Hemoglobin 31.4 pg (28.0-33.3); Mean Corpuscular Volume 94.6 fL (83.0-100.0); Mean Platelet Volume 8.9 fL (9.4-12.4); Platelet Count 280 K/mcL (140-400); Red Blood Count 4.42 M/mcL (4.19-5.50); Red Cell Distribution Width 14.1 % (11.5-14.5); White Blood Count 11.5 K/mcL (4.3-11.1)
[2021-09-30 05:59] LABS: INR 2.6; Prothrombin Time 28.5 Seconds (9.4-12.1)
[2021-09-30 06:07] LABS: BUN/Creatinine Ratio 51 (6-26); Blood Urea Nitrogen 49 mg/dL (8-23); Calcium 8.5 mg/dL (8.6-10.3); Carbon Dioxide 31 mEq/L (23-29); Chloride 101 mEq/L (98-107); Glucose 214 mg/dL (70-105); Osmolality,Calculated 303 (280-300); Potassium 4.7 mEq/L (3.5-5.1); Sodium 137 mEq/L (136-145); eGFR For African Americans > 60 (> 60); eGFR For Non-African Americans > 60 (> 60)
[2021-09-30] MEDS: QUEtiapine Fumarate 25 MG TABLET PO SCH ×2 (07:36→21:18)
[2021-09-30] MEDS: BuPROPion XL (24 HR) 150 MG TABLET PO SCH (07:36)
[2021-09-30] MEDS: Cyanocobalamin (B-12) 1,000 MCG TABLET PO SCH (07:36)
[2021-09-30] MEDS: Aspirin Enteric Coated 81 MG Tablet PO SCH (07:36)
[2021-09-30] MEDS: Sacubitril/Valsartan 24/26 MG 1 TABLET PO SCH (07:37)
[2021-09-30] MEDS: Piperacillin/Tazobactam 3.375 GM in 0.9 % Sodium Chloride Mini Bag 100 ML IVPB SCH ×2 (07:37→16:31)
[2021-09-30] MEDS: MethylPREDNISolone 40 MG/ML VIAL IVP SCH ×2 (07:38→19:54)
[2021-09-30] MEDS: Furosemide 20 MG/2 ML VIAL IVP SCH ×3 (07:40→13:13)
[2021-09-30] MEDS: Insulin LISPRO 300 UNITS/3 ML VIAL SUBQ SCH ×4 (07:49→21:18)
[2021-09-30] MEDS ORDERED: 0.9 % Sodium Chloride 1,000 ML ONE (11:14)
[2021-09-30] MEDS ORDERED: 0.9 % Sodium Chloride 1,000 ML IV ONE (11:17)
[2021-09-30] MEDS ORDERED: 0.9 % Sodium Chloride 1,000 ML IVC ONE (11:59)
[2021-09-30 12:39] LABS: Hematocrit 41.4 % (37.5-50.1); Hemoglobin 13.1 g/dL (12.9-16.9); Mean Corpuscular HGB Conc 31.6 g/dL (31.6-35.5); Mean Corpuscular Hemoglobin 30.6 pg (28.0-33.3); Mean Corpuscular Volume 96.7 fL (83.0-100.0); Mean Platelet Volume 9.1 fL (9.4-12.4); Platelet Count 303 K/mcL (140-400); Red Blood Count 4.28 M/mcL (4.19-5.50); Red Cell Distribution Width 14.2 % (11.5-14.5); White Blood Count 10.7 K/mcL (4.3-11.1)
[2021-09-30 12:58] LABS: Alanine Aminotransferase 59 Units/L (7-52); Albumin 2.7 g/dL (3.5-5.7); Albumin/Globulin Ratio 1.1 (1.1-2.2); Alkaline Phosphatase 71 Units/L (34-104); Aspartate Amino Transferase 22 Units/L (13-39); BUN/Creatinine Ratio 42 (6-26); Bilirubin,Total 1.4 mg/dL (0.3-1.0); Blood Urea Nitrogen 52 mg/dL (8-23); Calcium 7.9 mg/dL (8.6-10.3); Carbon Dioxide 29 mEq/L (23-29); Chloride 101 mEq/L (98-107); Globulin 2.4 g/dL (2.4-3.5); Glucose 258 mg/dL (70-105); Osmolality,Calculated 309 (280-300); Potassium 4.3 mEq/L (3.5-5.1); Sodium 138 mEq/L (136-145); Total Protein 5.1 g/dL (6.4-8.9); eGFR For African Americans > 60 (> 60); eGFR For Non-African Americans 58 (> 60)
[2021-09-30 13:06] LABS: Lymphocytes # 0.4 K/mcL (0.6-4.6); Monocytes # 0.9 K/mcL (0.0-1.3); Neutrophils # 9.2 K/mcL (1.6-8.9); Platelet Estimate Normal (Normal)
[2021-09-30] MEDS: Doxycycline 100 MG in 0.9 % Sodium Chloride Mini Bag 100 ML IVPB SCH (13:15)
[2021-09-30 13:50] LABS: ABG Base Excess 3 mEq/L (-2 to 3); ABG HCO3 29 mEq/L (21-27); ABG Oxygen Saturation 93 % (95-98); ABG PCO2 51 mmHg (35-45); ABG PH 7.37 pH Units (7.32-7.45); ABG PO2 71 mmHg (85-104); ABG TCO2 31 mEq/L (20-26)
[2021-09-30] MEDS ORDERED: Albumin 25% 25gram/100mL 25 GM/100 ML IV.SOLN IVPB ONE (15:54)
[2021-09-30] MEDS ORDERED: Albumin 25% 25gram/100mL 25 GM/100 ML IV.SOLN ONE (15:58)
[2021-09-30] MEDS ORDERED: *HR* Warfarin 2 MG TABLET PO ONE (18:00)
[2021-09-30] MEDS ORDERED: 0.9 % Sodium Chloride 500 ML IVC PRN (22:15)
[2021-09-30 23:46] LABS: Adenovirus F 40/41 PCR Not detected (Not detect); Astrovirus PCR Not detected (Not detect); C.difficile Toxin A/B Gene PCR Not detected (Not detect); Campylobacter by PCR Not detected (Not detect); Cryptosporidium by PCR Not detected (Not detect); Cyclospora cayetanensis PCR Not detected (Not detect); E. coli O157 by PCR Not detected (Not detect); Entamoeba histolytica PCR Not detected (Not detect); Enteroaggregative E.coli(EAEC) Not detected (Not detect); Enteropathogenic E.coli(EPEC) Not detected (Not detect); Enterotoxigenic E.coli (ETEC) Not detected (Not detect); Giardia lamblia PCR Not detected (Not detect); Norovirus GI/GII PCR Not detected (Not detect); Plesiomonas shigelloides PCR Not detected (Not detect); Rotavirus A PCR Not detected (Not detect); Salmonella PCR Not detected (Not detect); Sapovirus PCR Not detected (Not detect); Shig/EnteroinvasiveE coli EIEC Not detected (Not detect); Shigalike tox-prod E coli STEC Not detected (Not detect); Vibrio PCR Not detected (Not detect); Vibrio cholerae PCR Not detected (Not detect); Yersinia enterocolitica PCR Not detected (Not detect)
[2021-10-01] MEDS: Piperacillin/Tazobactam 3.375 GM in 0.9 % Sodium Chloride Mini Bag 100 ML IVPB SCH ×3 (00:08→18:19)
[2021-10-01] MEDS: Doxycycline 100 MG in 0.9 % Sodium Chloride Mini Bag 100 ML IVPB SCH ×2 (00:09→12:05)
[2021-10-01 06:42] LABS: Hematocrit 38.6 % (37.5-50.1); Hemoglobin 12.4 g/dL (12.9-16.9); Mean Corpuscular HGB Conc 32.1 g/dL (31.6-35.5); Mean Corpuscular Hemoglobin 30.8 pg (28.0-33.3); Mean Platelet Volume 9.1 fL (9.4-12.4); Platelet Count 235 K/mcL (140-400); Red Blood Count 4.02 M/mcL (4.19-5.50); White Blood Count 11.7 K/mcL (4.3-11.1)
[2021-10-01 06:52] LABS: INR 1.9; Prothrombin Time 20.9 Seconds (9.4-12.1)
[2021-10-01 07:01] LABS: BUN/Creatinine Ratio 53 (6-26); Blood Urea Nitrogen 43 mg/dL (8-23); Calcium 8.1 mg/dL (8.6-10.3); Carbon Dioxide 28 mEq/L (23-29); Chloride 104 mEq/L (98-107); Glucose 221 mg/dL (70-105); Osmolality,Calculated 302 (280-300); Potassium 4.6 mEq/L (3.5-5.1); Sodium 137 mEq/L (136-145); eGFR For African Americans > 60 (> 60); eGFR For Non-African Americans > 60 (> 60)
[2021-10-01] MEDS: Pantoprazole 40 MG VIAL IVP SCH (08:16)
[2021-10-01] MEDS: Aspirin Enteric Coated 81 MG Tablet PO SCH (08:17)
[2021-10-01] MEDS: MethylPREDNISolone 40 MG/ML VIAL IVP SCH ×2 (08:17→21:18)
[2021-10-01] MEDS: BuPROPion XL (24 HR) 150 MG TABLET PO SCH (08:17)
[2021-10-01] MEDS: Cyanocobalamin (B-12) 1,000 MCG TABLET PO SCH (08:18)
[2021-10-01] MEDS: QUEtiapine Fumarate 25 MG TABLET PO SCH ×2 (08:19→21:17)
[2021-10-01] MEDS: Insulin LISPRO 300 UNITS/3 ML VIAL SUBQ SCH ×4 (08:26→21:20)
[2021-10-01] MEDS: Ipratropium/Albuterol Neb 3 ML IH SCH ×4 (11:37→23:14)
[2021-10-01] MEDS ORDERED: *HR* Warfarin 2 MG TABLET PO ONE (18:00)
[2021-10-01] MEDS: Melatonin 3 MG TABLET PO PRN (21:17)
[2021-10-02] MEDS: Doxycycline 100 MG in 0.9 % Sodium Chloride Mini Bag 100 ML IVPB SCH ×2 (00:13→15:10)
[2021-10-02] MEDS: Piperacillin/Tazobactam 3.375 GM in 0.9 % Sodium Chloride Mini Bag 100 ML IVPB SCH ×3 (00:13→17:09)
[2021-10-02 02:10] LABS: Hematocrit 38.3 % (37.5-50.1); Hemoglobin 12.2 g/dL (12.9-16.9); Mean Corpuscular HGB Conc 31.9 g/dL (31.6-35.5); Mean Corpuscular Hemoglobin 30.4 pg (28.0-33.3); Mean Corpuscular Volume 95.5 fL (83.0-100.0); Mean Platelet Volume 9.1 fL (9.4-12.4); Platelet Count 217 K/mcL (140-400); Red Blood Count 4.01 M/mcL (4.19-5.50); Red Cell Distribution Width 14.1 % (11.5-14.5); White Blood Count 10.3 K/mcL (4.3-11.1)
[2021-10-02 02:18] LABS: INR 1.8
[2021-10-02 02:28] LABS: BUN/Creatinine Ratio 34 (6-26); Blood Urea Nitrogen 34 mg/dL (8-23); Carbon Dioxide 27 mEq/L (23-29); Chloride 103 mEq/L (98-107); Glucose 282 mg/dL (70-105); Osmolality,Calculated 298 (280-300); Potassium 4.7 mEq/L (3.5-5.1); Sodium 135 mEq/L (136-145); eGFR For African Americans > 60 (> 60); eGFR For Non-African Americans > 60 (> 60)
[2021-10-02 02:33] LABS: Neutrophils # 8.2 K/mcL (1.6-8.9); Platelet Estimate Normal (Normal)
[2021-10-02] MEDS: Ipratropium/Albuterol Neb 3 ML IH SCH ×6 (04:12→23:11)
[2021-10-02] MEDS: Aspirin Enteric Coated 81 MG Tablet PO SCH (09:04)
[2021-10-02] MEDS: QUEtiapine Fumarate 25 MG TABLET PO SCH ×2 (09:04→21:59)
[2021-10-02] MEDS: Cyanocobalamin (B-12) 1,000 MCG TABLET PO SCH (09:04)
[2021-10-02] MEDS: BuPROPion XL (24 HR) 150 MG TABLET PO SCH (09:04)
[2021-10-02] MEDS: Pantoprazole 40 MG VIAL IVP SCH (09:05)
[2021-10-02] MEDS: MethylPREDNISolone 40 MG/ML VIAL IVP SCH ×2 (09:05→21:58)
[2021-10-02] MEDS: Insulin LISPRO 300 UNITS/3 ML VIAL SUBQ SCH ×4 (09:05→21:30)
[2021-10-02] MEDS ORDERED: Furosemide 20 MG/2 ML VIAL IVP ONE (11:55)
[2021-10-02] MEDS ORDERED: *HR* Warfarin 3 MG TABLET PO ONE (18:00)
[2021-10-03] MEDS: Pantoprazole 40 MG VIAL IVP SCH ×2 (00:35→08:29)
[2021-10-03 03:23] LABS: Hemoglobin 12.3 g/dL (12.9-16.9); Mean Corpuscular HGB Conc 33.2 g/dL (31.6-35.5); Mean Corpuscular Hemoglobin 31.2 pg (28.0-33.3); Mean Corpuscular Volume 93.9 fL (83.0-100.0); Mean Platelet Volume 9.6 fL (9.4-12.4); Platelet Count 216 K/mcL (140-400); Red Blood Count 3.94 M/mcL (4.19-5.50); Red Cell Distribution Width 14.2 % (11.5-14.5); White Blood Count 11.9 K/mcL (4.3-11.1)
[2021-10-03 03:30] LABS: INR 1.9; Prothrombin Time 21.3 Seconds (9.4-12.1)
[2021-10-03 03:43] LABS: BUN/Creatinine Ratio 40 (6-26); Blood Urea Nitrogen 30 mg/dL (8-23); Calcium 8.4 mg/dL (8.6-10.3); Carbon Dioxide 27 mEq/L (23-29); Chloride 103 mEq/L (98-107); Glucose 225 mg/dL (70-105); Magnesium 1.9 mg/dL (1.6-2.6); Osmolality,Calculated 291 (280-300); Potassium 5.3 mEq/L (3.5-5.1); Sodium 134 mEq/L (136-145); eGFR For African Americans > 60 (> 60); eGFR For Non-African Americans > 60 (> 60)
[2021-10-03] MEDS: Ipratropium/Albuterol Neb 3 ML IH SCH ×4 (03:43→15:23)
[2021-10-03 03:49] LABS: Lymphocytes # 1.7 K/mcL (0.6-4.6); Monocytes # 0.7 K/mcL (0.0-1.3); Neutrophils # 9.5 K/mcL (1.6-8.9); Platelet Estimate Normal (Normal)
[2021-10-03] MEDS: Doxycycline 100 MG in 0.9 % Sodium Chloride Mini Bag 100 ML IVPB SCH (05:07)
[2021-10-03] MEDS: Insulin LISPRO 300 UNITS/3 ML VIAL SUBQ SCH ×2 (08:12→11:36)
[2021-10-03] MEDS: BuPROPion XL (24 HR) 150 MG TABLET PO SCH (08:27)
[2021-10-03] MEDS: Aspirin Enteric Coated 81 MG Tablet PO SCH (08:27)
[2021-10-03] MEDS: Cyanocobalamin (B-12) 1,000 MCG TABLET PO SCH (08:27)
[2021-10-03] MEDS: MethylPREDNISolone 40 MG/ML VIAL IVP SCH (08:28)
[2021-10-03] MEDS: QUEtiapine Fumarate 25 MG TABLET PO SCH (08:28)
[2021-10-03] MEDS: Piperacillin/Tazobactam 3.375 GM in 0.9 % Sodium Chloride Mini Bag 100 ML IVPB SCH ×2 (08:43)
[2021-10-03] MEDS ORDERED: Furosemide 20 MG/2 ML VIAL IVP SCH (09:00)
[2021-10-03 12:07] VITALS: BP 133/82; PULSE 63; TEMP 97.3
[2021-10-03 14:34] LABS: Influenza A PCR Negative (Negative); Influenza B PCR Negative (Negative); Resp. Syncytial Virus PCR Negative (Negative)
[2021-10-03 14:37] LABS: SARS-CoV-2 by PCR (In House) Negative (Negative)
[2021-10-03 16:38] VITALS: O2SAT 93
[2021-10-03] MEDS ORDERED: *HR* Warfarin 1 MG TABLET PO ONE (18:00)
== END 2021-10-03 16:07 ==
LOC: EMEROOARM 00:57 → 2ANU 00:57 → SUATTDRO 04:07 → 2ANU 05:13 → SUATTDRO 17:44 → 2NNU 09-25 10:53 → 2ANU 10-03 10:41
PROVIDERS: ADMIT Internal Medicine; ATTEND Family Medicine

== ENCOUNTER 2021-10-23 14:08 | Inpatient (IN) ==
[2021-10-23] MEDS ORDERED: Ipratropium/Albuterol Neb 3 ML IH ONE ×2 (15:14→17:27)
[2021-10-23] MEDS ORDERED: Haloperidol Lactate 5 MG/ML VIAL IM ONE (15:14)
[2021-10-23] MEDS ORDERED: methylPREDNISolone 125 MG/2 ML VIAL IVP ONE (15:15)
[2021-10-23 15:20] LABS: INR 1.3; Prothrombin Time 14.9 Seconds (9.4-12.1)
[2021-10-23 15:23] LABS: Activated Partial Thrombo Time 25.2 Seconds (26.0-36.0)
[2021-10-23] MEDS ORDERED: Isovue-370 500 ML BOTTLE IVP ONE (15:41)
[2021-10-23 15:59] LABS: Alanine Aminotransferase 23 Units/L (7-52); Albumin 3.2 g/dL (3.5-5.7); Albumin/Globulin Ratio 1.1 (1.1-2.2); Alkaline Phosphatase 97 Units/L (34-104); Aspartate Amino Transferase 16 Units/L (13-39); BUN/Creatinine Ratio 14 (6-26); Bilirubin,Direct 0.2 mg/dL (0.0-0.2); Bilirubin,Indirect 0.8 mg/dL (0.0-1.0); Blood Urea Nitrogen 18 mg/dL (8-23); Calcium 8.7 mg/dL (8.6-10.3); Carbon Dioxide 30 mEq/L (23-29); Chloride 102 mEq/L (98-107); Globulin 2.9 g/dL (2.4-3.5); Glucose 153 mg/dL (70-105); Osmolality,Calculated 299 (280-300); Potassium 3.9 mEq/L (3.5-5.1); Sodium 142 mEq/L (136-145); Total Protein 6.1 g/dL (6.4-8.9); Troponin I 0.05 ng/mL (< 0.04); eGFR For African Americans > 60 (> 60); eGFR For Non-African Americans 56 (> 60)
[2021-10-23] MEDS ORDERED: *HR* LORazepam 2 MG/ML VIAL IVP ONE (16:01)
[2021-10-23] MEDS ORDERED: Furosemide 40 MG/4 ML VIAL IVP ONE (16:46)
[2021-10-23 16:58] LABS: Basophils % 0.6 %; Eosinophils # 0.1 K/mcL (0.0-0.6); Eosinophils % 1.8 %; Hematocrit 34.4 % (37.5-50.1); Hemoglobin 10.3 g/dL (12.9-16.9); Lymphocytes % 19.2 %; Mean Corpuscular HGB Conc 29.9 g/dL (31.6-35.5); Mean Corpuscular Hemoglobin 30.1 pg (28.0-33.3); Mean Corpuscular Volume 100.6 fL (83.0-100.0); Mean Platelet Volume 9.5 fL (9.4-12.4); Monocytes # 0.5 K/mcL (0.0-1.3); Monocytes % 9.8 %; Neutrophils # 3.2 K/mcL (1.6-8.9); Nucleated Red Blood Cells 1.2 /100 WBC (0); Platelet Count 253 K/mcL (140-400); Red Blood Count 3.42 M/mcL (4.19-5.50); Red Cell Distribution Width 18.3 % (11.5-14.5); Segmented Neutrophils % 63.6 %
[2021-10-23 17:15] LABS: VBG HCO3 31 mEq/L (21-27); VBG PCO2 75 mmHg (41-51); VBG PH 7.22 pH Units (7.32-7.42); VBG PO2 52 mmHg (25-50)
[2021-10-23] MEDS: Dexmedetomidine HCl 400 MCG/100 ML MLS IVC SCH (18:01)
[2021-10-23] MEDS ORDERED: Doxycycline 100 MG in 0.9 % Sodium Chloride Mini Bag 100 ML IVPB ONE (18:13)
[2021-10-23 19:42] LABS: VBG HCO3 30 mEq/L (21-27); VBG PCO2 63 mmHg (41-51); VBG PH 7.28 pH Units (7.32-7.42); VBG PO2 96 mmHg (25-50)
[2021-10-23] MEDS ORDERED: Naloxone 0.4 MG/ML INJ IVP PRN (20:11)
[2021-10-23] MEDS ORDERED: Dextrose 4 GM Chewable Tablets PO PRN ×2 (20:46)
[2021-10-23] MEDS ORDERED: D5% in Water 1,000 ML IVC PRN (20:46)
[2021-10-23] MEDS ORDERED: *HR* Dextrose 50 % in Water (Syg) 50 ML SYRINGE IVP PRN (20:46)
[2021-10-23] MEDS: QUEtiapine Fumarate 25 MG TABLET PO SCH (22:21)
[2021-10-23] MEDS: Ipratropium/Albuterol Neb 3 ML IH SCH (22:57)
[2021-10-23] MEDS: Insulin LISPRO 300 UNITS/3 ML VIAL SUBQ SCH (23:26)
[2021-10-24] MEDS: Dexmedetomidine HCl 400 MCG/100 ML MLS IVC SCH (01:09)
[2021-10-24 01:36] LABS: Bilirubin,Urine Negative (Negative); Blood,Urine Negative (Negative); Clarity,Urine Clear (Clear); Color,Urine Light-Yellow (Yellow); Glucose,Urine (UA) >=1000 mg/dL (Normal); Ketones,Urine Negative (Negative); Leukocyte Esterase,Urine Negative (Negative); Nitrite,Urine Negative (Negative); Protein,Urine Trace mg/dL (Neg-Trace); RBC,Urine 0-3 per hpf (0-3); Specific Gravity,Urine > 1.030 (1.010-1.025); Squamous Epithelial Cell,Urine Few per hpf (None-Few); Urobilinogen,Urine Normal (Normal)
[2021-10-24 03:20] LABS: Basophils % 0.5 %; Hematocrit 31.7 % (37.5-50.1); Hemoglobin 9.8 g/dL (12.9-16.9); Immature Granulocytes % 5.4 % (0-4); Lymphocytes # 0.7 K/mcL (0.6-4.6); Lymphocytes % 15.3 %; Mean Corpuscular HGB Conc 30.9 g/dL (31.6-35.5); Mean Corpuscular Hemoglobin 31.3 pg (28.0-33.3); Mean Corpuscular Volume 101.3 fL (83.0-100.0); Mean Platelet Volume 9.3 fL (9.4-12.4); Monocytes # 0.3 K/mcL (0.0-1.3); Monocytes % 7.2 %; Neutrophils # 3.2 K/mcL (1.6-8.9); Nucleated Red Blood Cells 0.5 /100 WBC (0); Platelet Count 241 K/mcL (140-400); Red Blood Count 3.13 M/mcL (4.19-5.50); Segmented Neutrophils % 71.6 %; White Blood Count 4.4 K/mcL (4.3-11.1)
[2021-10-24 03:30] LABS: INR 1.3
[2021-10-24 03:39] LABS: VBG HCO3 30 mEq/L (21-27); VBG PCO2 61 mmHg (41-51); VBG PO2 108 mmHg (25-50)
[2021-10-24 03:47] LABS: Procalcitonin 0.07 ng/mL (0.00-0.15)
[2021-10-24 03:55] LABS: % Iron Saturation 15 % (20-55); Alanine Aminotransferase 22 Units/L (7-52); Albumin 3.1 g/dL (3.5-5.7); Albumin/Globulin Ratio 1.1 (1.1-2.2); Alkaline Phosphatase 85 Units/L (34-104); Aspartate Amino Transferase 13 Units/L (13-39); BUN/Creatinine Ratio 18 (6-26); Bilirubin,Total 0.7 mg/dL (0.3-1.0); Blood Urea Nitrogen 18 mg/dL (8-23); Calcium 8.5 mg/dL (8.6-10.3); Carbon Dioxide 30 mEq/L (23-29); Globulin 2.8 g/dL (2.4-3.5); Glucose 175 mg/dL (70-105); Iron 47 mcg/dL (65-175); Magnesium 2.2 mg/dL (1.6-2.6); Phosphorous 5.5 mg/dL (2.7-4.5); Total Protein 5.9 g/dL (6.4-8.9); Transferrin 220 mg/dL (203-362); Troponin I 0.04 ng/mL (< 0.04); eGFR For African Americans > 60 (> 60); eGFR For Non-African Americans > 60 (> 60)
[2021-10-24] MEDS: Ipratropium/Albuterol Neb 3 ML IH SCH ×4 (03:58→20:28)
[2021-10-24] MEDS ORDERED: Calcium Gluconate 1gm/50mL 1 GM/50 ML BAG IVPB ONE (03:59)
[2021-10-24] MEDS ORDERED: *HR* Atropine Sulfate 1 MG/10 ML SYRINGE IVP ONE (04:28)
[2021-10-24 04:30] LABS: Chloride 105 mEq/L (98-107); Ferritin 362 ng/mL (20-250); Osmolality,Calculated 300 (280-300); Potassium 4.7 mEq/L (3.5-5.1); Sodium 142 mEq/L (136-145)
[2021-10-24] MEDS ORDERED: *HR* Atropine Sulfate 1 MG/10 ML SYRINGE IVP PRN (04:59)
[2021-10-24] MEDS: MethylPREDNISolone 40 MG/ML VIAL IVP SCH ×3 (05:59→16:55)
[2021-10-24] MEDS ORDERED: *HR* Heparin 5,000 UNIT/ML VIAL SQ SCH (06:00)
[2021-10-24] MEDS ORDERED: *HR* LORazepam 2 MG/ML VIAL IVP PRN ×2 (07:48→08:24)
[2021-10-24] MEDS: Furosemide 20 MG/2 ML VIAL IVP SCH ×2 (08:02→16:54)
[2021-10-24] MEDS: Aspirin 81 MG TAB.CHEW PO SCH (08:07)
[2021-10-24] MEDS: BuPROPion SR (12 HR) 150 MG TABLET PO SCH (08:08)
[2021-10-24 08:31] LABS: Folate 7.3 ng/mL (3.0-16.0)
[2021-10-24] MEDS ORDERED: Azithromycin 500 MG in 0.9 % Sodium Chloride 250 ML IVPB SCH (09:00)
[2021-10-24] MEDS ORDERED: cefTRIAXone 1,000 MG in 0.9 % Sodium Chloride 10 ML IVPB SCH (09:00)
[2021-10-24] MEDS: Insulin LISPRO 300 UNITS/3 ML VIAL SUBQ SCH ×4 (09:48→20:21)
[2021-10-24] MEDS ORDERED: *HR* Heparin 5,000 UNIT/ML VIAL IVP ONE (12:52)
[2021-10-24] MEDS ORDERED: *HR* Heparin 5,000 UNIT/ML VIAL IVP PRN ×2 (12:52)
[2021-10-24] MEDS ORDERED: Heparin 25,000UNIT/250ML 1/2NS 25,000 UNIT/250 ML IV.SOLN IVC SCH (13:00)
[2021-10-24 13:45] LABS: Hematocrit 35.6 % (37.5-50.1); Hemoglobin 10.6 g/dL (12.9-16.9); Mean Corpuscular HGB Conc 29.8 g/dL (31.6-35.5); Mean Corpuscular Hemoglobin 30.7 pg (28.0-33.3); Mean Corpuscular Volume 103.2 fL (83.0-100.0); Mean Platelet Volume 9.6 fL (9.4-12.4); Platelet Count 266 K/mcL (140-400); Red Blood Count 3.45 M/mcL (4.19-5.50); Red Cell Distribution Width 18.4 % (11.5-14.5); White Blood Count 6.3 K/mcL (4.3-11.1)
[2021-10-24 13:52] LABS: Heparin anti-factor XA UFH < 0.04 IU/mL (0.30-0.70)
[2021-10-24 13:53] LABS: INR 1.3; Prothrombin Time 14.4 Seconds (9.4-12.1)
[2021-10-24] MEDS: *HR* LORazepam 2 MG/ML VIAL IVP PRN ×2 (16:49→21:07)
[2021-10-24] MEDS ORDERED: *HR* LORazepam 2 MG/ML VIAL IVP ONE ×3 (17:54→23:21)
[2021-10-24] MEDS ORDERED: *HR* Warfarin 3 MG TABLET PO ONE ×2 (18:00)
[2021-10-24] MEDS ORDERED: Warfarin perPT PO PRN (18:00)
[2021-10-24] MEDS: Heparin 25,000UNIT/250ML 1/2NS 25,000 UNIT/250 ML IV.SOLN IVC SCH (20:51)
[2021-10-25] MEDS: MethylPREDNISolone 40 MG/ML VIAL IVP SCH ×4 (00:01→23:09)
[2021-10-25 04:03] LABS: Basophils % 0.1 %; Hematocrit 32.7 % (37.5-50.1); Hemoglobin 9.9 g/dL (12.9-16.9); Immature Granulocytes % 2.7 % (0-4); Lymphocytes # 0.7 K/mcL (0.6-4.6); Lymphocytes % 9.1 %; Mean Corpuscular HGB Conc 30.3 g/dL (31.6-35.5); Mean Corpuscular Hemoglobin 30.8 pg (28.0-33.3); Mean Corpuscular Volume 101.9 fL (83.0-100.0); Mean Platelet Volume 9.3 fL (9.4-12.4); Monocytes # 0.5 K/mcL (0.0-1.3); Monocytes % 6.3 %; Platelet Count 296 K/mcL (140-400); Red Blood Count 3.21 M/mcL (4.19-5.50); Red Cell Distribution Width 18.4 % (11.5-14.5); Segmented Neutrophils % 81.8 %; White Blood Count 7.3 K/mcL (4.3-11.1)
[2021-10-25 04:09] LABS: INR 1.4; Prothrombin Time 16.1 Seconds (9.4-12.1)
[2021-10-25 04:21] LABS: BUN/Creatinine Ratio 31 (6-26); Blood Urea Nitrogen 29 mg/dL (8-23); Calcium 8.8 mg/dL (8.6-10.3); Carbon Dioxide 32 mEq/L (23-29); Chloride 105 mEq/L (98-107); Glucose 135 mg/dL (70-105); Osmolality,Calculated 304 (280-300); Potassium 4.3 mEq/L (3.5-5.1); Sodium 143 mEq/L (136-145); eGFR For African Americans > 60 (> 60); eGFR For Non-African Americans > 60 (> 60)
[2021-10-25] MEDS: Ipratropium/Albuterol Neb 3 ML IH SCH ×4 (04:42→20:05)
[2021-10-25] MEDS: Heparin 25,000UNIT/250ML 1/2NS 25,000 UNIT/250 ML IV.SOLN IVC SCH ×2 (04:54→19:54)
[2021-10-25 05:01] LABS: Activated Partial Thrombo Time 159.6 Seconds (26.0-36.0)
[2021-10-25] MEDS: Insulin LISPRO 300 UNITS/3 ML VIAL SUBQ SCH ×4 (05:49→19:41)
[2021-10-25] MEDS: Aspirin 81 MG TAB.CHEW PO SCH (06:45)
[2021-10-25] MEDS: BuPROPion SR (12 HR) 150 MG TABLET PO SCH (06:45)
[2021-10-25] MEDS: Furosemide 20 MG/2 ML VIAL IVP SCH ×2 (07:19→15:54)
[2021-10-25] MEDS: *HR* LORazepam 2 MG/ML VIAL IVP PRN ×4 (07:22→21:54)
[2021-10-26 03:54] LABS: Basophils % 0.1 %; Hematocrit 33.8 % (37.5-50.1); Hemoglobin 9.9 g/dL (12.9-16.9); Immature Granulocytes % 2.2 % (0-4); Lymphocytes # 0.5 K/mcL (0.6-4.6); Lymphocytes % 6.2 %; Mean Corpuscular HGB Conc 29.3 g/dL (31.6-35.5); Mean Corpuscular Hemoglobin 29.8 pg (28.0-33.3); Mean Corpuscular Volume 101.8 fL (83.0-100.0); Mean Platelet Volume 9.4 fL (9.4-12.4); Monocytes # 0.5 K/mcL (0.0-1.3); Monocytes % 6.5 %; Neutrophils # 6.2 K/mcL (1.6-8.9); Platelet Count 324 K/mcL (140-400); Red Blood Count 3.32 M/mcL (4.19-5.50); Red Cell Distribution Width 18.2 % (11.5-14.5); White Blood Count 7.3 K/mcL (4.3-11.1)
[2021-10-26] MEDS: Ipratropium/Albuterol Neb 3 ML IH SCH ×4 (03:57→19:50)
[2021-10-26 04:02] LABS: INR 1.3; Prothrombin Time 14.8 Seconds (9.4-12.1)
[2021-10-26 04:05] LABS: BUN/Creatinine Ratio 38 (6-26); Blood Urea Nitrogen 38 mg/dL (8-23); Calcium 8.7 mg/dL (8.6-10.3); Carbon Dioxide 34 mEq/L (23-29); Chloride 103 mEq/L (98-107); Glucose 140 mg/dL (70-105); Magnesium 2.4 mg/dL (1.6-2.6); Osmolality,Calculated 307 (280-300); Potassium 4.2 mEq/L (3.5-5.1); Sodium 143 mEq/L (136-145); eGFR For African Americans > 60 (> 60); eGFR For Non-African Americans > 60 (> 60)
[2021-10-26] MEDS: Insulin LISPRO 300 UNITS/3 ML VIAL SUBQ SCH ×4 (07:44→23:11)
[2021-10-26] MEDS: Furosemide 20 MG/2 ML VIAL IVP SCH (08:00)
[2021-10-26] MEDS: MethylPREDNISolone 40 MG/ML VIAL IVP SCH ×2 (08:00→16:22)
[2021-10-26] MEDS: BuPROPion SR (12 HR) 150 MG TABLET PO SCH (08:00)
[2021-10-26] MEDS: Aspirin 81 MG TAB.CHEW PO SCH (08:00)
[2021-10-26] MEDS: *HR* LORazepam 2 MG/ML VIAL IVP PRN ×2 (08:17→21:11)
[2021-10-26] MEDS: Heparin 25,000UNIT/250ML 1/2NS 25,000 UNIT/250 ML IV.SOLN IVC SCH (11:24)
[2021-10-26] MEDS: QUEtiapine Fumarate 25 MG TABLET PO SCH ×2 (12:40→23:12)
[2021-10-26] MEDS: Albumin 25% 25gram/100mL 25 GM/100 ML IV.SOLN IVC SCH ×2 (12:44→14:25)
[2021-10-26] MEDS ORDERED: Furosemide 40 MG/4 ML VIAL IVP ONE (16:04)
[2021-10-26] MEDS ORDERED: Isovue-370 500 ML BOTTLE IVP ONE (16:37)
[2021-10-27] MEDS: MethylPREDNISolone 40 MG/ML VIAL IVP SCH ×4 (00:10→23:42)
[2021-10-27] MEDS: *HR* LORazepam 2 MG/ML VIAL IVP PRN ×3 (01:18→20:18)
[2021-10-27 01:22] LABS: Basophils % 0.2 %; Hematocrit 30.7 % (37.5-50.1); Hemoglobin 9.6 g/dL (12.9-16.9); Immature Granulocytes % 1.4 % (0-4); Lymphocytes # 0.4 K/mcL (0.6-4.6); Lymphocytes % 6.7 %; Mean Corpuscular HGB Conc 31.3 g/dL (31.6-35.5); Mean Platelet Volume 9.1 fL (9.4-12.4); Monocytes # 0.5 K/mcL (0.0-1.3); Monocytes % 7.5 %; Neutrophils # 5.3 K/mcL (1.6-8.9); Platelet Count 301 K/mcL (140-400); Red Cell Distribution Width 17.4 % (11.5-14.5); Segmented Neutrophils % 84.2 %; White Blood Count 6.3 K/mcL (4.3-11.1)
[2021-10-27 01:39] LABS: BUN/Creatinine Ratio 42 (6-26); Blood Urea Nitrogen 38 mg/dL (8-23); Carbon Dioxide 37 mEq/L (23-29); Chloride 100 mEq/L (98-107); Glucose 149 mg/dL (70-105); Osmolality,Calculated 308 (280-300); Potassium 4.1 mEq/L (3.5-5.1); Sodium 143 mEq/L (136-145); eGFR For African Americans > 60 (> 60); eGFR For Non-African Americans > 60 (> 60)
[2021-10-27] MEDS: Ipratropium/Albuterol Neb 3 ML IH SCH ×4 (04:18→22:52)
[2021-10-27 06:17] LABS: INR 1.3
[2021-10-27] MEDS: QUEtiapine Fumarate 25 MG TABLET PO SCH ×2 (07:57→19:58)
[2021-10-27] MEDS: Insulin LISPRO 300 UNITS/3 ML VIAL SUBQ SCH ×4 (07:57→20:35)
[2021-10-27] MEDS: BuPROPion SR (12 HR) 150 MG TABLET PO SCH (07:57)
[2021-10-27] MEDS: Aspirin 81 MG TAB.CHEW PO SCH (07:57)
[2021-10-27] MEDS ORDERED: Furosemide 20 MG/2 ML VIAL IVP SCH (08:00)
[2021-10-28] MEDS: *HR* LORazepam 2 MG/ML VIAL IVP PRN ×5 (00:30→23:11)
[2021-10-28] MEDS: Ipratropium/Albuterol Neb 3 ML IH SCH ×4 (04:25→20:19)
[2021-10-28] MEDS: Albumin 25% 25gram/100mL 25 GM/100 ML IV.SOLN IVC SCH ×2 (05:11→08:18)
[2021-10-28 06:05] LABS: Basophils % 0.2 %; Hematocrit 32.7 % (37.5-50.1); Immature Granulocytes % 1.6 % (0-4); Lymphocytes # 0.3 K/mcL (0.6-4.6); Lymphocytes % 4.8 %; Mean Corpuscular HGB Conc 30.6 g/dL (31.6-35.5); Mean Corpuscular Hemoglobin 30.9 pg (28.0-33.3); Mean Corpuscular Volume 100.9 fL (83.0-100.0); Mean Platelet Volume 9.3 fL (9.4-12.4); Monocytes # 0.4 K/mcL (0.0-1.3); Monocytes % 6.9 %; Neutrophils # 5.4 K/mcL (1.6-8.9); Platelet Count 275 K/mcL (140-400); Red Blood Count 3.24 M/mcL (4.19-5.50); Red Cell Distribution Width 17.2 % (11.5-14.5); Segmented Neutrophils % 86.5 %; White Blood Count 6.2 K/mcL (4.3-11.1)
[2021-10-28 06:17] LABS: BUN/Creatinine Ratio 56 (6-26); Blood Urea Nitrogen 45 mg/dL (8-23); Calcium 8.9 mg/dL (8.6-10.3); Carbon Dioxide 37 mEq/L (23-29); Chloride 102 mEq/L (98-107); Glucose 141 mg/dL (70-105); Osmolality,Calculated 314 (280-300); Potassium 4.4 mEq/L (3.5-5.1); Sodium 145 mEq/L (136-145); eGFR For African Americans > 60 (> 60); eGFR For Non-African Americans > 60 (> 60)
[2021-10-28 08:43] LABS: INR 1.4; Prothrombin Time 15.3 Seconds (9.4-12.1)
[2021-10-28] MEDS ORDERED: Haloperidol Lactate 5 MG/ML VIAL IVP ONE ×2 (10:13→17:39)
[2021-10-28] MEDS ORDERED: 0.9 % Sodium Chloride 1,000 ML IVC SCH (10:15)
[2021-10-28 10:31] LABS: ABG Base Excess 9 mEq/L (-2 to 3); ABG HCO3 37 mEq/L (21-27); ABG Oxygen Saturation 94 % (95-98); ABG PCO2 66 mmHg (35-45); ABG PH 7.35 pH Units (7.32-7.45); ABG PO2 75 mmHg (85-104); ABG TCO2 39 mEq/L (20-26)
[2021-10-28] MEDS: Insulin LISPRO 300 UNITS/3 ML VIAL SUBQ SCH ×4 (11:23→22:12)
[2021-10-28] MEDS: Dexmedetomidine HCl 400 MCG/100 ML MLS IVC SCH (11:25)
[2021-10-28] MEDS: BuPROPion SR (12 HR) 150 MG TABLET PO SCH (11:26)
[2021-10-28] MEDS: Aspirin 81 MG TAB.CHEW PO SCH (11:27)
[2021-10-28] MEDS: Furosemide 20 MG/2 ML VIAL IVP SCH (11:28)
[2021-10-28] MEDS: QUEtiapine Fumarate 25 MG TABLET PO SCH (11:29)
[2021-10-28] MEDS: MethylPREDNISolone 40 MG/ML VIAL IVP SCH ×2 (16:16→23:12)
[2021-10-29] MEDS: Haloperidol Lactate 5 MG/ML VIAL IVP PRN ×2 (01:19→08:20)
[2021-10-29] MEDS: Ipratropium/Albuterol Neb 3 ML IH SCH ×4 (03:42→20:05)
[2021-10-29] MEDS: Dexmedetomidine HCl 400 MCG/100 ML MLS IVC SCH (05:04)
[2021-10-29 06:34] LABS: Basophils % 0.3 %; Hematocrit 32.6 % (37.5-50.1); Immature Granulocytes % 1.7 % (0-4); Lymphocytes # 0.4 K/mcL (0.6-4.6); Lymphocytes % 6.1 %; Mean Corpuscular HGB Conc 30.7 g/dL (31.6-35.5); Mean Corpuscular Hemoglobin 30.7 pg (28.0-33.3); Monocytes # 0.5 K/mcL (0.0-1.3); Monocytes % 6.8 %; Neutrophils # 5.9 K/mcL (1.6-8.9); Platelet Count 233 K/mcL (140-400); Red Blood Count 3.26 M/mcL (4.19-5.50); Red Cell Distribution Width 16.9 % (11.5-14.5); Segmented Neutrophils % 85.1 %; White Blood Count 6.9 K/mcL (4.3-11.1)
[2021-10-29 06:40] LABS: INR 1.5; Prothrombin Time 16.3 Seconds (9.4-12.1)
[2021-10-29 06:52] LABS: BUN/Creatinine Ratio 62 (6-26); Blood Urea Nitrogen 45 mg/dL (8-23); Calcium 8.9 mg/dL (8.6-10.3); Carbon Dioxide 34 mEq/L (23-29); Chloride 106 mEq/L (98-107); Glucose 117 mg/dL (70-105); Osmolality,Calculated 319 (280-300); Potassium 4.1 mEq/L (3.5-5.1); Sodium 148 mEq/L (136-145); eGFR For African Americans > 60 (> 60); eGFR For Non-African Americans > 60 (> 60)
[2021-10-29] MEDS: Furosemide 20 MG/2 ML VIAL IVP SCH (08:20)
[2021-10-29] MEDS: MethylPREDNISolone 40 MG/ML VIAL IVP SCH ×3 (08:21→23:41)
[2021-10-29] MEDS: Insulin LISPRO 300 UNITS/3 ML VIAL SUBQ SCH ×4 (08:22→20:39)
[2021-10-29] MEDS: BuPROPion SR (12 HR) 150 MG TABLET PO SCH (08:22)
[2021-10-29] MEDS: Aspirin 81 MG TAB.CHEW PO SCH (08:22)
[2021-10-29] MEDS: *HR* LORazepam 2 MG/ML VIAL IVP PRN ×3 (08:51→21:10)
[2021-10-29] MEDS ORDERED: Ringers Solution, Lactated 1,000 ML IVC SCH (09:15)
[2021-10-29] MEDS ORDERED: Haloperidol Lactate 5 MG/ML VIAL IVP SCH (13:45)
[2021-10-29] MEDS: Haloperidol Lactate 5 MG/ML VIAL IVP SCH ×2 (18:19→21:58)
[2021-10-30] MEDS: Haloperidol Lactate 5 MG/ML VIAL IVP SCH ×6 (01:48→21:50)
[2021-10-30 02:25] LABS: Basophils % 0.2 %; Hematocrit 33.9 % (37.5-50.1); Hemoglobin 10.6 g/dL (12.9-16.9); Lymphocytes # 0.4 K/mcL (0.6-4.6); Lymphocytes % 5.9 %; Mean Corpuscular HGB Conc 31.3 g/dL (31.6-35.5); Mean Corpuscular Hemoglobin 31.5 pg (28.0-33.3); Mean Corpuscular Volume 100.6 fL (83.0-100.0); Mean Platelet Volume 9.5 fL (9.4-12.4); Monocytes # 0.5 K/mcL (0.0-1.3); Monocytes % 7.2 %; Neutrophils # 5.4 K/mcL (1.6-8.9); Platelet Count 265 K/mcL (140-400); Red Blood Count 3.37 M/mcL (4.19-5.50); Red Cell Distribution Width 17.1 % (11.5-14.5); Segmented Neutrophils % 85.7 %; White Blood Count 6.3 K/mcL (4.3-11.1)
[2021-10-30 02:42] LABS: Alanine Aminotransferase 15 Units/L (7-52); Albumin 3.9 g/dL (3.5-5.7); Albumin/Globulin Ratio 2.2 (1.1-2.2); Alkaline Phosphatase 58 Units/L (34-104); Aspartate Amino Transferase 17 Units/L (13-39); BUN/Creatinine Ratio 61 (6-26); Bilirubin,Total 3.4 mg/dL (0.3-1.0); Blood Urea Nitrogen 44 mg/dL (8-23); Calcium 8.9 mg/dL (8.6-10.3); Carbon Dioxide 35 mEq/L (23-29); Chloride 108 mEq/L (98-107); Globulin 1.8 g/dL (2.4-3.5); Glucose 128 mg/dL (70-105); Osmolality,Calculated 321 (280-300); Potassium 4.4 mEq/L (3.5-5.1); Sodium 149 mEq/L (136-145); Total Protein 5.7 g/dL (6.4-8.9); eGFR For African Americans > 60 (> 60); eGFR For Non-African Americans > 60 (> 60)
[2021-10-30] MEDS: BuPROPion SR (12 HR) 150 MG TABLET PO SCH (07:37)
[2021-10-30] MEDS: Aspirin 81 MG TAB.CHEW PO SCH (07:37)
[2021-10-30] MEDS: MethylPREDNISolone 40 MG/ML VIAL IVP SCH ×2 (07:42→19:55)
[2021-10-30] MEDS: Furosemide 20 MG/2 ML VIAL IVP SCH (07:43)
[2021-10-30] MEDS: Insulin LISPRO 300 UNITS/3 ML VIAL SUBQ SCH ×4 (07:48→21:57)
[2021-10-30] MEDS: *HR* LORazepam 2 MG/ML VIAL IVP PRN (12:53)
[2021-10-30 15:17] LABS: INR 1.5; Prothrombin Time 16.3 Seconds (9.4-12.1)
[2021-10-30] MEDS ORDERED: *HR* Metoprolol 5 MG/5 ML VIAL IVP PRN (16:48)
[2021-10-30] MEDS ORDERED: Warfarin perPT PO PRN (18:00)
[2021-10-30] MEDS ORDERED: *HR* Warfarin 2 MG TABLET PO ONE (18:00)
[2021-10-30] MEDS: Metoprolol XL (24 HR) Succ 25 MG TAB.ER.24H PO SCH (21:57)
[2021-10-31] MEDS: MethylPREDNISolone 40 MG/ML VIAL IVP SCH ×3 (00:06→16:19)
[2021-10-31] MEDS: Haloperidol Lactate 5 MG/ML VIAL IVP SCH ×4 (02:54→16:19)
[2021-10-31 05:33] LABS: Basophils % 0.1 %; Hematocrit 36.3 % (37.5-50.1); Hemoglobin 11.4 g/dL (12.9-16.9); Immature Granulocytes % 0.8 % (0-4); Lymphocytes # 0.3 K/mcL (0.6-4.6); Lymphocytes % 4.3 %; Mean Corpuscular HGB Conc 31.4 g/dL (31.6-35.5); Mean Corpuscular Hemoglobin 31.8 pg (28.0-33.3); Mean Corpuscular Volume 101.1 fL (83.0-100.0); Mean Platelet Volume 9.7 fL (9.4-12.4); Monocytes # 0.4 K/mcL (0.0-1.3); Monocytes % 4.9 %; Platelet Count 239 K/mcL (140-400); Red Blood Count 3.59 M/mcL (4.19-5.50); Segmented Neutrophils % 89.9 %; White Blood Count 7.7 K/mcL (4.3-11.1)
[2021-10-31 05:40] LABS: INR 1.5; Prothrombin Time 16.8 Seconds (9.4-12.1)
[2021-10-31 07:16] LABS: BUN/Creatinine Ratio 70 (6-26); Blood Urea Nitrogen 55 mg/dL (8-23); Calcium 9.1 mg/dL (8.6-10.3); Carbon Dioxide 33 mEq/L (23-29); Chloride 108 mEq/L (98-107); Glucose 168 mg/dL (70-105); Osmolality,Calculated 333 (280-300); Potassium 4.1 mEq/L (3.5-5.1); Sodium 152 mEq/L (136-145); eGFR For African Americans > 60 (> 60); eGFR For Non-African Americans > 60 (> 60)
[2021-10-31] MEDS: Metoprolol XL (24 HR) Succ 25 MG TAB.ER.24H PO SCH ×2 (08:33→21:04)
[2021-10-31] MEDS: Aspirin 81 MG TAB.CHEW PO SCH (08:33)
[2021-10-31] MEDS: D5% in Water 1,000 ML IVC SCH ×2 (08:44→18:32)
[2021-10-31] MEDS: Insulin LISPRO 300 UNITS/3 ML VIAL SUBQ SCH ×4 (08:59→22:14)
[2021-10-31] MEDS: BuPROPion SR (12 HR) 150 MG TABLET PO SCH (12:13)
[2021-10-31] MEDS ORDERED: *HR* Warfarin 2 MG TABLET PO ONE (18:00)
[2021-10-31] MEDS ORDERED: QUEtiapine Fumarate 25 MG TABLET PO SCH (21:00)
[2021-10-31] MEDS: Melatonin 3 MG TABLET PO PRN (22:51)
[2021-11-01] MEDS: Haloperidol Lactate 5 MG/ML VIAL IVP PRN (00:24)
[2021-11-01] MEDS: MethylPREDNISolone 40 MG/ML VIAL IVP SCH ×4 (00:33→23:12)
[2021-11-01 05:59] LABS: VBG HCO3 31 mEq/L (21-27); VBG PCO2 47 mmHg (41-51); VBG PH 7.43 pH Units (7.32-7.42); VBG PO2 127 mmHg (25-50)
[2021-11-01 06:04] LABS: Hematocrit 34.4 % (37.5-50.1); Hemoglobin 10.8 g/dL (12.9-16.9); Mean Corpuscular HGB Conc 31.4 g/dL (31.6-35.5); Mean Corpuscular Hemoglobin 30.5 pg (28.0-33.3); Mean Corpuscular Volume 97.2 fL (83.0-100.0); Mean Platelet Volume 9.5 fL (9.4-12.4); Platelet Count 166 K/mcL (140-400); Red Blood Count 3.54 M/mcL (4.19-5.50); Red Cell Distribution Width 15.9 % (11.5-14.5); White Blood Count 10.8 K/mcL (4.3-11.1)
[2021-11-01 06:11] LABS: INR 1.5; Prothrombin Time 16.2 Seconds (9.4-12.1)
[2021-11-01 07:22] LABS: BUN/Creatinine Ratio 50 (6-26); Blood Urea Nitrogen 33 mg/dL (8-23); Calcium 8.4 mg/dL (8.6-10.3); Carbon Dioxide 32 mEq/L (23-29); Chloride 101 mEq/L (98-107); Glucose 206 mg/dL (70-105); Osmolality,Calculated 297 (280-300); Potassium 4.1 mEq/L (3.5-5.1); Sodium 137 mEq/L (136-145); eGFR For African Americans > 60 (> 60); eGFR For Non-African Americans > 60 (> 60)
[2021-11-01] MEDS: BuPROPion SR (12 HR) 150 MG TABLET PO SCH (09:25)
[2021-11-01] MEDS: Aspirin 81 MG TAB.CHEW PO SCH (09:25)
[2021-11-01] MEDS: Insulin LISPRO 300 UNITS/3 ML VIAL SUBQ SCH ×4 (09:25→21:04)
[2021-11-01] MEDS: Metoprolol XL (24 HR) Succ 25 MG TAB.ER.24H PO SCH ×2 (09:25→21:05)
[2021-11-01] MEDS: Furosemide 20 MG/2 ML VIAL IVP SCH (09:51)
[2021-11-01] MEDS: QUEtiapine Fumarate 25 MG TABLET PO SCH ×2 (11:34→21:05)
[2021-11-01] MEDS ORDERED: *HR* Warfarin 4 MG TABLET PO ONE (18:00)
[2021-11-01] MEDS: Melatonin 3 MG TABLET PO PRN (21:05)
[2021-11-02] MEDS: Haloperidol Lactate 5 MG/ML VIAL IVP PRN ×3 (01:41→15:49)
[2021-11-02 06:01] LABS: Hematocrit 33.6 % (37.5-50.1); Hemoglobin 10.4 g/dL (12.9-16.9); Mean Corpuscular Hemoglobin 30.5 pg (28.0-33.3); Mean Corpuscular Volume 98.5 fL (83.0-100.0); Mean Platelet Volume 10.2 fL (9.4-12.4); Platelet Count 157 K/mcL (140-400); Red Blood Count 3.41 M/mcL (4.19-5.50); Red Cell Distribution Width 16.1 % (11.5-14.5); White Blood Count 8.6 K/mcL (4.3-11.1)
[2021-11-02 06:27] LABS: INR 1.5; Prothrombin Time 16.6 Seconds (9.4-12.1)
[2021-11-02 06:37] LABS: BUN/Creatinine Ratio 48 (6-26); Blood Urea Nitrogen 32 mg/dL (8-23); Calcium 8.6 mg/dL (8.6-10.3); Carbon Dioxide 34 mEq/L (23-29); Chloride 99 mEq/L (98-107); Glucose 193 mg/dL (70-105); Osmolality,Calculated 302 (280-300); Potassium 3.9 mEq/L (3.5-5.1); Sodium 140 mEq/L (136-145); eGFR For African Americans > 60 (> 60); eGFR For Non-African Americans > 60 (> 60)
[2021-11-02] MEDS: Insulin LISPRO 300 UNITS/3 ML VIAL SUBQ SCH ×4 (08:25→20:51)
[2021-11-02] MEDS: MethylPREDNISolone 40 MG/ML VIAL IVP SCH (10:02)
[2021-11-02] MEDS: Metoprolol XL (24 HR) Succ 25 MG TAB.ER.24H PO SCH ×2 (10:03→20:46)
[2021-11-02] MEDS: QUEtiapine Fumarate 25 MG TABLET PO SCH (10:03)
[2021-11-02] MEDS: BuPROPion SR (12 HR) 150 MG TABLET PO SCH (10:03)
[2021-11-02] MEDS: Aspirin 81 MG TAB.CHEW PO SCH (10:03)
[2021-11-02] MEDS: Furosemide 20 MG/2 ML VIAL IVP SCH (10:04)
[2021-11-02] MEDS ORDERED: risperiDONE 0.25 MG TABLET PO ONE (14:36)
[2021-11-02] MEDS ORDERED: *HR* Warfarin 4 MG TABLET PO ONE (18:00)
[2021-11-02] MEDS: risperiDONE 0.25 MG TABLET PO SCH (20:46)
[2021-11-02] MEDS ORDERED: risperiDONE 0.25 MG TABLET PO SCH (21:00)
[2021-11-03] MEDS: Haloperidol Lactate 5 MG/ML VIAL IVP PRN ×4 (00:43→21:37)
[2021-11-03 06:53] LABS: INR 1.6; Prothrombin Time 17.7 Seconds (9.4-12.1)
[2021-11-03] MEDS: risperiDONE 0.25 MG TABLET PO SCH ×2 (08:44→21:24)
[2021-11-03] MEDS: Furosemide 20 MG TABLET PO SCH (08:45)
[2021-11-03] MEDS: BuPROPion SR (12 HR) 150 MG TABLET PO SCH (08:45)
[2021-11-03] MEDS: Aspirin 81 MG TAB.CHEW PO SCH (08:45)
[2021-11-03] MEDS: Metoprolol XL (24 HR) Succ 25 MG TAB.ER.24H PO SCH ×3 (08:45→23:34)
[2021-11-03] MEDS: predniSONE 20 MG TABLET PO SCH (08:45)
[2021-11-03] MEDS: Insulin LISPRO 300 UNITS/3 ML VIAL SUBQ SCH ×4 (08:51→21:15)
[2021-11-03] MEDS ORDERED: *HR* Warfarin 4 MG TABLET PO ONE (18:00)
[2021-11-04] MEDS: Haloperidol Lactate 5 MG/ML VIAL IVP PRN ×2 (01:13→11:07)
[2021-11-04 02:35] LABS: Hematocrit 35.4 % (37.5-50.1); Hemoglobin 11.3 g/dL (12.9-16.9); Mean Corpuscular HGB Conc 31.9 g/dL (31.6-35.5); Mean Corpuscular Hemoglobin 31.6 pg (28.0-33.3); Mean Corpuscular Volume 98.9 fL (83.0-100.0); Mean Platelet Volume 10.6 fL (9.4-12.4); Platelet Count 157 K/mcL (140-400); Red Blood Count 3.58 M/mcL (4.19-5.50); Red Cell Distribution Width 16.5 % (11.5-14.5)
[2021-11-04 02:37] LABS: White Blood Count 13.3 K/mcL (4.3-11.1)
[2021-11-04 02:49] LABS: BUN/Creatinine Ratio 48 (6-26); Blood Urea Nitrogen 31 mg/dL (8-23); Calcium 8.8 mg/dL (8.6-10.3); Carbon Dioxide 31 mEq/L (23-29); Chloride 102 mEq/L (98-107); Glucose 114 mg/dL (70-105); Osmolality,Calculated 293 (280-300); Potassium 4.3 mEq/L (3.5-5.1); Sodium 138 mEq/L (136-145); eGFR For African Americans > 60 (> 60); eGFR For Non-African Americans > 60 (> 60)
[2021-11-04 06:35] LABS: INR 1.4; Prothrombin Time 15.7 Seconds (9.4-12.1)
[2021-11-04] MEDS: Insulin LISPRO 300 UNITS/3 ML VIAL SUBQ SCH ×4 (07:47→21:08)
[2021-11-04] MEDS: predniSONE 20 MG TABLET PO SCH (07:47)
[2021-11-04] MEDS: BuPROPion SR (12 HR) 150 MG TABLET PO SCH (07:48)
[2021-11-04] MEDS: Aspirin 81 MG TAB.CHEW PO SCH (07:48)
[2021-11-04] MEDS: Furosemide 20 MG TABLET PO SCH (07:48)
[2021-11-04] MEDS: risperiDONE 0.25 MG TABLET PO SCH (07:48)
[2021-11-04] MEDS: Metoprolol XL (24 HR) Succ 25 MG TAB.ER.24H PO SCH ×2 (07:48→21:08)
[2021-11-04] MEDS ORDERED: *HR* Warfarin 5 MG TABLET PO ONE (18:00)
[2021-11-04] MEDS: risperiDONE 1 MG TABLET PO SCH (21:08)
[2021-11-05 04:11] LABS: INR 1.6; Prothrombin Time 17.3 Seconds (9.4-12.1)
[2021-11-05] MEDS: Insulin LISPRO 300 UNITS/3 ML VIAL SUBQ SCH ×4 (07:02→20:32)
[2021-11-05] MEDS: Metoprolol XL (24 HR) Succ 25 MG TAB.ER.24H PO SCH ×2 (07:03→20:32)
[2021-11-05] MEDS: predniSONE 20 MG TABLET PO SCH (07:45)
[2021-11-05] MEDS: BuPROPion SR (12 HR) 150 MG TABLET PO SCH (07:45)
[2021-11-05] MEDS: risperiDONE 0.25 MG TABLET PO SCH (07:45)
[2021-11-05] MEDS: Aspirin 81 MG TAB.CHEW PO SCH (07:45)
[2021-11-05] MEDS: Furosemide 20 MG TABLET PO SCH (07:45)
[2021-11-05] MEDS ORDERED: 0.9 % Sodium Chloride 1,000 ML IV ONE (16:03)
[2021-11-05] MEDS ORDERED: *HR* Warfarin 5 MG TABLET PO ONE (18:00)
[2021-11-05] MEDS: risperiDONE 1 MG TABLET PO SCH (20:32)
[2021-11-05] MEDS: Melatonin 3 MG TABLET PO PRN (23:51)
[2021-11-06 01:13] LABS: INR 2.5
[2021-11-06] MEDS: Haloperidol Lactate 5 MG/ML VIAL IVP PRN ×2 (02:09→21:53)
[2021-11-06] MEDS: Insulin LISPRO 300 UNITS/3 ML VIAL SUBQ SCH ×4 (08:10→20:30)
[2021-11-06] MEDS: Aspirin 81 MG TAB.CHEW PO SCH (08:32)
[2021-11-06] MEDS: Metoprolol XL (24 HR) Succ 25 MG TAB.ER.24H PO SCH ×2 (08:32→20:29)
[2021-11-06] MEDS: Furosemide 20 MG TABLET PO SCH (08:33)
[2021-11-06] MEDS: predniSONE 20 MG TABLET PO SCH (08:33)
[2021-11-06] MEDS: risperiDONE 0.25 MG TABLET PO SCH ×2 (08:33→20:29)
[2021-11-06] MEDS: BuPROPion SR (12 HR) 150 MG TABLET PO SCH (08:33)
[2021-11-06 08:56] LABS: Bilirubin,Urine Negative (Negative); Blood,Urine Moderate (Negative); Budding Yeast,Urine Many per hpf (None Seen); Clarity,Urine Turbid (Clear); Color,Urine Yellow (Yellow); Glucose,Urine (UA) Normal (Normal); Ketones,Urine Negative (Negative); Leukocyte Esterase,Urine Large (Negative); Nitrite,Urine Positive (Negative); Protein,Urine 30 mg/dL (Neg-Trace); RBC,Urine TNTC per hpf (0-3); Specific Gravity,Urine 1.023 (1.010-1.025); WBC,Urine TNTC per hpf (0-3)
[2021-11-06] MEDS ORDERED: *HR* Warfarin 2 MG TABLET PO ONE (18:00)
[2021-11-06] MEDS: traZODone 50 MG TABLET PO SCH (20:29)
[2021-11-06] MEDS: Melatonin 3 MG TABLET PO SCH (20:30)
[2021-11-07 01:45] LABS: Mean Platelet Volume 10.9 fL (9.4-12.4)
[2021-11-07 01:47] LABS: Hematocrit 38.1 % (37.5-50.1); Hemoglobin 11.8 g/dL (12.9-16.9); Immature Platelets 6.5 % (1.1-6.1); Mean Corpuscular Hemoglobin 31.1 pg (28.0-33.3); Mean Corpuscular Volume 100.3 fL (83.0-100.0); Red Blood Count 3.8 M/mcL (4.19-5.50); Red Cell Distribution Width 16.9 % (11.5-14.5)
[2021-11-07 01:53] LABS: INR 3.1; Prothrombin Time 34.6 Seconds (9.4-12.1)
[2021-11-07 02:03] LABS: BUN/Creatinine Ratio 41 (6-26); Blood Urea Nitrogen 26 mg/dL (8-23); Carbon Dioxide 31 mEq/L (23-29); Chloride 99 mEq/L (98-107); Glucose 131 mg/dL (70-105); Osmolality,Calculated 291 (280-300); Potassium 4.3 mEq/L (3.5-5.1); Sodium 137 mEq/L (136-145); eGFR For African Americans > 60 (> 60); eGFR For Non-African Americans > 60 (> 60)
[2021-11-07] MEDS: Insulin LISPRO 300 UNITS/3 ML VIAL SUBQ SCH ×4 (08:31→21:48)
[2021-11-07] MEDS: Aspirin 81 MG TAB.CHEW PO SCH (09:16)
[2021-11-07] MEDS: Metoprolol XL (24 HR) Succ 25 MG TAB.ER.24H PO SCH ×3 (09:16→20:09)
[2021-11-07] MEDS: predniSONE 20 MG TABLET PO SCH (09:16)
[2021-11-07] MEDS: Furosemide 20 MG TABLET PO SCH ×2 (09:17→09:34)
[2021-11-07] MEDS: BuPROPion SR (12 HR) 150 MG TABLET PO SCH (09:17)
[2021-11-07] MEDS: cefTRIAXone 1,000 MG in Water for inj. (sterile) 10 ML IVP SCH (09:17)
[2021-11-07] MEDS: risperiDONE 0.25 MG TABLET PO SCH ×2 (09:17→20:09)
[2021-11-07] MEDS ORDERED: Furosemide 20 MG TABLET PO SCH (11:00)
[2021-11-07] MEDS: Haloperidol Lactate 5 MG/ML VIAL IVP PRN (20:08)
[2021-11-07] MEDS: traZODone 50 MG TABLET PO SCH (20:09)
[2021-11-07] MEDS: Melatonin 3 MG TABLET PO SCH (20:09)
[2021-11-08] MEDS: Haloperidol Lactate 5 MG/ML VIAL IVP PRN (02:52)
[2021-11-08 04:27] LABS: INR 2.2; Prothrombin Time 24.2 Seconds (9.4-12.1)
[2021-11-08] MEDS: Insulin LISPRO 300 UNITS/3 ML VIAL SUBQ SCH ×4 (07:29→19:51)
[2021-11-08] MEDS: Metoprolol XL (24 HR) Succ 25 MG TAB.ER.24H PO SCH ×3 (07:33→19:55)
[2021-11-08] MEDS: BuPROPion SR (12 HR) 150 MG TABLET PO SCH (07:45)
[2021-11-08] MEDS: risperiDONE 0.25 MG TABLET PO SCH ×2 (07:45→19:48)
[2021-11-08] MEDS: cefTRIAXone 1,000 MG in Water for inj. (sterile) 10 ML IVP SCH (07:45)
[2021-11-08] MEDS: Aspirin 81 MG TAB.CHEW PO SCH (07:45)
[2021-11-08] MEDS ORDERED: 0.9 % Sodium Chloride 1,000 ML IVC SCH (08:00)
[2021-11-08] MEDS ORDERED: *HR* Warfarin 2 MG TABLET PO ONE (18:00)
[2021-11-08] MEDS: traZODone 50 MG TABLET PO SCH (19:49)
[2021-11-08] MEDS: Melatonin 3 MG TABLET PO SCH (19:49)
[2021-11-09 06:41] LABS: Hematocrit 36.7 % (37.5-50.1); Hemoglobin 11.2 g/dL (12.9-16.9); Immature Platelets 4.4 % (1.1-6.1); Mean Corpuscular HGB Conc 30.5 g/dL (31.6-35.5); Mean Corpuscular Hemoglobin 30.8 pg (28.0-33.3); Mean Corpuscular Volume 100.8 fL (83.0-100.0); Mean Platelet Volume 10.1 fL (9.4-12.4); Red Blood Count 3.64 M/mcL (4.19-5.50); Red Cell Distribution Width 16.8 % (11.5-14.5); White Blood Count 9.1 K/mcL (4.3-11.1)
[2021-11-09 06:50] LABS: INR 1.4; Prothrombin Time 15.8 Seconds (9.4-12.1)
[2021-11-09 07:04] LABS: BUN/Creatinine Ratio 39 (6-26); Blood Urea Nitrogen 25 mg/dL (8-23); Calcium 8.8 mg/dL (8.6-10.3); Carbon Dioxide 32 mEq/L (23-29); Chloride 97 mEq/L (98-107); Glucose 112 mg/dL (70-105); Osmolality,Calculated 285 (280-300); Potassium 4.6 mEq/L (3.5-5.1); Sodium 135 mEq/L (136-145); eGFR For African Americans > 60 (> 60); eGFR For Non-African Americans > 60 (> 60)
[2021-11-09] MEDS: Insulin LISPRO 300 UNITS/3 ML VIAL SUBQ SCH ×4 (08:15→21:23)
[2021-11-09] MEDS: Metoprolol XL (24 HR) Succ 25 MG TAB.ER.24H PO SCH ×2 (08:24→21:36)
[2021-11-09] MEDS: Aspirin 81 MG TAB.CHEW PO SCH (08:24)
[2021-11-09] MEDS: cefTRIAXone 1,000 MG in Water for inj. (sterile) 10 ML IVP SCH (09:11)
[2021-11-09] MEDS: BuPROPion SR (12 HR) 150 MG TABLET PO SCH (09:14)
[2021-11-09] MEDS: risperiDONE 0.25 MG TABLET PO SCH ×2 (09:14→21:35)
[2021-11-09] MEDS: Cefdinir 300 MG CAPSULE PO SCH ×2 (11:06→21:36)
[2021-11-09] MEDS ORDERED: Haloperidol Lactate 5 MG/ML VIAL IM ONE (15:26)
[2021-11-09] MEDS ORDERED: *HR* Warfarin 4 MG TABLET PO ONE (18:00)
[2021-11-09] MEDS: traZODone 50 MG TABLET PO SCH (21:36)
[2021-11-09] MEDS: Melatonin 3 MG TABLET PO SCH (21:36)
[2021-11-10 02:29] LABS: INR 1.5; Prothrombin Time 16.7 Seconds (9.4-12.1)
[2021-11-10] MEDS ORDERED: Haloperidol Lactate 5 MG/ML VIAL IM ONE (05:07)
[2021-11-10] MEDS: Insulin LISPRO 300 UNITS/3 ML VIAL SUBQ SCH ×4 (08:34→21:48)
[2021-11-10] MEDS: Aspirin 81 MG TAB.CHEW PO SCH (08:39)
[2021-11-10] MEDS: Metoprolol XL (24 HR) Succ 25 MG TAB.ER.24H PO SCH ×2 (08:40→21:49)
[2021-11-10] MEDS: BuPROPion SR (12 HR) 150 MG TABLET PO SCH (08:40)
[2021-11-10] MEDS: risperiDONE 0.25 MG TABLET PO SCH ×2 (08:40→21:48)
[2021-11-10] MEDS: Cefdinir 300 MG CAPSULE PO SCH ×2 (08:40→21:48)
[2021-11-10] MEDS ORDERED: *HR* Warfarin 2 MG TABLET PO ONE (18:00)
[2021-11-10] MEDS: Melatonin 3 MG TABLET PO SCH (21:48)
[2021-11-10] MEDS: traZODone 50 MG TABLET PO SCH (21:48)
[2021-11-11] MEDS ORDERED: *HR* LORazepam 2 MG/ML VIAL IM STA (01:45)
[2021-11-11] MEDS: Insulin LISPRO 300 UNITS/3 ML VIAL SUBQ SCH ×4 (08:18→21:49)
[2021-11-11] MEDS: BuPROPion SR (12 HR) 150 MG TABLET PO SCH (09:33)
[2021-11-11] MEDS: Metoprolol XL (24 HR) Succ 25 MG TAB.ER.24H PO SCH ×2 (09:33→21:49)
[2021-11-11] MEDS: Cefdinir 300 MG CAPSULE PO SCH ×2 (09:33→21:48)
[2021-11-11] MEDS: risperiDONE 0.25 MG TABLET PO SCH ×2 (09:33→21:48)
[2021-11-11] MEDS: Aspirin 81 MG TAB.CHEW PO SCH (09:33)
[2021-11-11] MEDS ORDERED: *HR* Warfarin 2 MG TABLET PO ONE (18:00)
[2021-11-11] MEDS: Melatonin 3 MG TABLET PO SCH (21:48)
[2021-11-11] MEDS: traZODone 50 MG TABLET PO SCH (21:48)
[2021-11-12] MEDS: Insulin LISPRO 300 UNITS/3 ML VIAL SUBQ SCH ×4 (09:50→20:19)
[2021-11-12] MEDS: Cefdinir 300 MG CAPSULE PO SCH ×2 (09:50→20:19)
[2021-11-12] MEDS: Aspirin 81 MG TAB.CHEW PO SCH (09:50)
[2021-11-12] MEDS: risperiDONE 0.25 MG TABLET PO SCH ×2 (09:51→20:18)
[2021-11-12] MEDS: BuPROPion SR (12 HR) 150 MG TABLET PO SCH (09:51)
[2021-11-12] MEDS: Metoprolol XL (24 HR) Succ 25 MG TAB.ER.24H PO SCH ×2 (09:51→20:19)
[2021-11-12] MEDS ORDERED: *HR* Warfarin 2 MG TABLET PO ONE (18:00)
[2021-11-12] MEDS: Melatonin 3 MG TABLET PO SCH (20:19)
[2021-11-12] MEDS: traZODone 50 MG TABLET PO SCH (20:19)
[2021-11-13] MEDS: Insulin LISPRO 300 UNITS/3 ML VIAL SUBQ SCH ×4 (07:42→20:02)
[2021-11-13] MEDS: risperiDONE 0.25 MG TABLET PO SCH ×2 (08:30→20:01)
[2021-11-13] MEDS: Metoprolol XL (24 HR) Succ 25 MG TAB.ER.24H PO SCH ×2 (08:31→20:02)
[2021-11-13] MEDS: BuPROPion SR (12 HR) 150 MG TABLET PO SCH (08:31)
[2021-11-13] MEDS: Aspirin 81 MG TAB.CHEW PO SCH (08:31)
[2021-11-13] MEDS: Cefdinir 300 MG CAPSULE PO SCH ×2 (08:33→20:02)
[2021-11-13] MEDS: traZODone 50 MG TABLET PO SCH (20:02)
[2021-11-13] MEDS: Melatonin 3 MG TABLET PO SCH (20:02)
[2021-11-14 06:44] LABS: INR 2.2; Prothrombin Time 23.9 Seconds (9.4-12.1)
[2021-11-14] MEDS: Insulin LISPRO 300 UNITS/3 ML VIAL SUBQ SCH ×4 (07:14→19:32)
[2021-11-14] MEDS: Aspirin 81 MG TAB.CHEW PO SCH (09:47)
[2021-11-14] MEDS: risperiDONE 0.25 MG TABLET PO SCH ×2 (09:47→20:47)
[2021-11-14] MEDS: BuPROPion SR (12 HR) 150 MG TABLET PO SCH (09:47)
[2021-11-14] MEDS: Apixaban 5 MG TABLET PO SCH ×2 (09:48→20:47)
[2021-11-14] MEDS: Cefdinir 300 MG CAPSULE PO SCH ×2 (09:48→20:46)
[2021-11-14] MEDS: Metoprolol XL (24 HR) Succ 25 MG TAB.ER.24H PO SCH ×2 (09:48→20:46)
[2021-11-14] MEDS: traZODone 50 MG TABLET PO SCH (20:46)
[2021-11-14] MEDS: Melatonin 3 MG TABLET PO SCH (20:46)
[2021-11-15 02:18] LABS: Prothrombin Time 22.3 Seconds (9.4-12.1)
[2021-11-15] MEDS: BuPROPion SR (12 HR) 150 MG TABLET PO SCH (09:59)
[2021-11-15] MEDS: risperiDONE 0.25 MG TABLET PO SCH ×2 (09:59→20:23)
[2021-11-15] MEDS: Cefdinir 300 MG CAPSULE PO SCH ×2 (09:59→20:23)
[2021-11-15] MEDS: Metoprolol XL (24 HR) Succ 25 MG TAB.ER.24H PO SCH ×2 (10:00→20:17)
[2021-11-15] MEDS: Apixaban 5 MG TABLET PO SCH ×2 (10:00→20:23)
[2021-11-15] MEDS: Furosemide 20 MG TABLET PO SCH (10:00)
[2021-11-15] MEDS: Aspirin 81 MG TAB.CHEW PO SCH (10:05)
[2021-11-15] MEDS: Insulin LISPRO 300 UNITS/3 ML VIAL SUBQ SCH ×4 (10:05→20:15)
[2021-11-15] MEDS ORDERED: Moderna Covid-19 Vaccine 100MCG/0.5mL IM ONE (15:04)
[2021-11-15 18:43] VITALS: TEMP 97.7
[2021-11-15] MEDS: traZODone 50 MG TABLET PO SCH (20:23)
[2021-11-15] MEDS: Melatonin 3 MG TABLET PO SCH (20:23)
[2021-11-16 07:14] VITALS: BP 110/60; PULSE 88; O2SAT 91
[2021-11-16] MEDS: Cefdinir 300 MG CAPSULE PO SCH (09:46)
[2021-11-16] MEDS: BuPROPion SR (12 HR) 150 MG TABLET PO SCH (09:46)
[2021-11-16] MEDS: risperiDONE 0.25 MG TABLET PO SCH (09:46)
[2021-11-16] MEDS: Apixaban 5 MG TABLET PO SCH (09:46)
[2021-11-16] MEDS: Aspirin 81 MG TAB.CHEW PO SCH (09:47)
[2021-11-16] MEDS: Furosemide 20 MG TABLET PO SCH (09:47)
[2021-11-16] MEDS: Metoprolol XL (24 HR) Succ 25 MG TAB.ER.24H PO SCH (09:47)
[2021-11-16] MEDS: Insulin LISPRO 300 UNITS/3 ML VIAL SUBQ SCH (09:47)
== END 2021-11-16 13:15 | DRG 280 ==
LOC: 2NNU 14:08 → EMEROOARM 14:08 → 2NNU 20:59 → SUATTDRO 21:10 → 2NENU 10-25 14:10 → 3BNU 11-09 22:40
PROVIDERS: ADMIT Internal Medicine; ATTEND Internal Medicine

== ENCOUNTER 2022-02-03 18:52 | Inpatient (IN) ==
[2022-02-03] MEDS ORDERED: Ipratropium/Albuterol Neb 3 ML IH ONE (21:25)
[2022-02-03] MEDS ORDERED: methylPREDNISolone 125 MG/2 ML VIAL IVP ONE (21:25)
[2022-02-03 22:02] LABS: Troponin I 0.03 ng/mL (< 0.04)
[2022-02-03 22:11] LABS: Influenza A PCR Negative (Negative); Influenza B PCR Negative (Negative); Resp. Syncytial Virus PCR Negative (Negative)
[2022-02-03 22:17] LABS: BUN/Creatinine Ratio 13 (6-26); Blood Urea Nitrogen 13 mg/dL (8-23); Calcium 8.6 mg/dL (8.6-10.3); Carbon Dioxide 26 mEq/L (23-29); Chloride 105 mEq/L (98-107); Glucose 109 mg/dL (70-105); Osmolality,Calculated 289 (280-300); Potassium 4.5 mEq/L (3.5-5.1); Sodium 139 mEq/L (136-145); eGFR For African Americans > 60 (> 60); eGFR For Non-African Americans > 60 (> 60)
[2022-02-03 22:20] LABS: SARS-CoV-2 by PCR (In House) Positive (Negative)
[2022-02-03 22:38] LABS: VBG HCO3 34 mEq/L (21-27); VBG PCO2 79 mmHg (41-51); VBG PH 7.23 pH Units (7.32-7.42); VBG PO2 44 mmHg (25-50)
[2022-02-03 23:00] LABS: Basophils % 0.3 %; Eosinophils # 0.1 K/mcL (0.0-0.6); Eosinophils % 1.4 %; Hematocrit 44.6 % (37.5-50.1); Hemoglobin 13.6 g/dL (12.9-16.9); Immature Granulocytes % 0.3 % (0-4); Lymphocytes # 1.7 K/mcL (0.6-4.6); Lymphocytes % 26.7 %; Mean Corpuscular HGB Conc 30.5 g/dL (31.6-35.5); Mean Corpuscular Hemoglobin 28.3 pg (28.0-33.3); Mean Corpuscular Volume 92.9 fL (83.0-100.0); Mean Platelet Volume 9.3 fL (9.4-12.4); Monocytes # 0.6 K/mcL (0.0-1.3); Monocytes % 9.3 %; Neutrophils # 3.9 K/mcL (1.6-8.9); Platelet Count 158 K/mcL (140-400); Red Cell Distribution Width 15.1 % (11.5-14.5); White Blood Count 6.4 K/mcL (4.3-11.1)
[2022-02-04] MEDS ORDERED: *HR* LORazepam 2 MG/ML VIAL IVP ONE ×3 (00:37→06:46)
[2022-02-04] MEDS ORDERED: Ondansetron 4 MG/2 ML VIAL IVP PRN (01:03)
[2022-02-04] MEDS ORDERED: Naloxone 0.4 MG/ML INJ IVP PRN (01:03)
[2022-02-04] MEDS ORDERED: Haloperidol Lactate 5 MG/ML VIAL IVP ONE ×2 (01:49→06:47)
[2022-02-04] MEDS: Azithromycin 500 MG in 0.9 % Sodium Chloride 250 ML IVPB SCH (02:16)
[2022-02-04 02:20] LABS: ABG Base Excess 1 mEq/L (-2 to 3); ABG HCO3 30 mEq/L (21-27); ABG Oxygen Saturation 95 % (95-98); ABG PCO2 63 mmHg (35-45); ABG PH 7.28 pH Units (7.32-7.45); ABG PO2 87 mmHg (85-104); ABG TCO2 31 mEq/L (20-26); Blood Gas Modality avaps; Blood Gas VT 500 cc
[2022-02-04] MEDS ORDERED: Dextrose Gel 15 GM/37.5 ML TUBE PO PRN ×2 (03:15)
[2022-02-04] MEDS ORDERED: D5% in Water 1,000 ML IVC PRN (03:15)
[2022-02-04] MEDS ORDERED: *HR* Dextrose 50 % in Water (Syg) 50 ML SYRINGE IVP PRN (03:15)
[2022-02-04] MEDS ORDERED: Ipratropium/Albuterol Neb 3 ML IH SCH (04:00)
[2022-02-04] MEDS: Ipratropium 1 PUFF INHALER IH SCH ×5 (04:06→20:12)
[2022-02-04 05:58] LABS: Hemoglobin 13.4 g/dL (12.9-16.9); Mean Corpuscular HGB Conc 29.8 g/dL (31.6-35.5); Mean Corpuscular Hemoglobin 27.9 pg (28.0-33.3); Mean Corpuscular Volume 93.6 fL (83.0-100.0); Mean Platelet Volume 9.7 fL (9.4-12.4); Platelet Count 141 K/mcL (140-400); Red Blood Count 4.81 M/mcL (4.19-5.50); White Blood Count 5.5 K/mcL (4.3-11.1)
[2022-02-04] MEDS ORDERED: MethylPREDNISolone 40 MG/ML VIAL IVP SCH (06:00)
[2022-02-04 06:16] LABS: BUN/Creatinine Ratio 15 (6-26); Blood Urea Nitrogen 13 mg/dL (8-23); Calcium 8.4 mg/dL (8.6-10.3); Carbon Dioxide 31 mEq/L (23-29); Chloride 104 mEq/L (98-107); Glucose 165 mg/dL (70-105); Osmolality,Calculated 296 (280-300); Potassium 4.2 mEq/L (3.5-5.1); Sodium 141 mEq/L (136-145); eGFR For African Americans > 60 (> 60); eGFR For Non-African Americans > 60 (> 60)
[2022-02-04] MEDS: Insulin LISPRO 300 UNITS/3 ML VIAL SUBQ SCH ×3 (06:24→18:07)
[2022-02-04 12:32] LABS: Alanine Aminotransferase 8 Units/L (7-52); Albumin 3.5 g/dL (3.5-5.7); Albumin/Globulin Ratio 1.1 (1.1-2.2); Alkaline Phosphatase 73 Units/L (34-104); Aspartate Amino Transferase 11 Units/L (13-39); Bilirubin,Direct 0.2 mg/dL (0.0-0.2); Bilirubin,Indirect 0.6 mg/dL (0.0-1.0); Bilirubin,Total 0.8 mg/dL (0.3-1.0); C-Reactive Protein < 5 mg/L (Less than 10); Globulin 3.2 g/dL (2.4-3.5); Total Protein 6.7 g/dL (6.4-8.9)
[2022-02-04 13:04] LABS: ABG Base Excess 2 mEq/L (-2 to 3); ABG HCO3 28 mEq/L (21-27); ABG Oxygen Saturation 97 % (95-98); ABG PCO2 50 mmHg (35-45); ABG PH 7.36 pH Units (7.32-7.45); ABG PO2 97 mmHg (85-104); ABG TCO2 30 mEq/L (20-26)
[2022-02-04] MEDS ORDERED: Remdesivir 200 MG in 0.9 % Sodium Chloride 100 ML IVPB ONE (17:00)
[2022-02-05] MEDS: Ipratropium 1 PUFF INHALER IH SCH ×7 (00:59→23:19)
[2022-02-05] MEDS ORDERED: 0.9 % Sodium Chloride 250 ML ONE (01:01)
[2022-02-05] MEDS: Azithromycin 500 MG in 0.9 % Sodium Chloride 250 ML IVPB SCH ×2 (01:12→01:22)
[2022-02-05] MEDS: Insulin LISPRO 300 UNITS/3 ML VIAL SUBQ SCH ×5 (01:13→23:01)
[2022-02-05 05:47] LABS: Basophils % 0.1 %; Hematocrit 43.1 % (37.5-50.1); Hemoglobin 13.1 g/dL (12.9-16.9); Immature Granulocytes % 0.4 % (0-4); Lymphocytes # 0.9 K/mcL (0.6-4.6); Lymphocytes % 11.4 %; Mean Corpuscular HGB Conc 30.4 g/dL (31.6-35.5); Mean Corpuscular Hemoglobin 28.2 pg (28.0-33.3); Mean Corpuscular Volume 92.7 fL (83.0-100.0); Mean Platelet Volume 9.8 fL (9.4-12.4); Monocytes # 0.6 K/mcL (0.0-1.3); Monocytes % 7.7 %; Neutrophils # 6.4 K/mcL (1.6-8.9); Platelet Count 169 K/mcL (140-400); Red Blood Count 4.65 M/mcL (4.19-5.50); Red Cell Distribution Width 14.7 % (11.5-14.5); Segmented Neutrophils % 80.4 %
[2022-02-05 06:03] LABS: Albumin 3.4 g/dL (3.5-5.7); Albumin/Globulin Ratio 1.4 (1.1-2.2); Bilirubin,Direct 0.1 mg/dL (0.0-0.2); Bilirubin,Indirect 0.6 mg/dL (0.0-1.0); Bilirubin,Total 0.7 mg/dL (0.3-1.0); Globulin 2.5 g/dL (2.4-3.5); Total Protein 5.9 g/dL (6.4-8.9)
[2022-02-05 06:04] LABS: Alanine Aminotransferase 8 Units/L (7-52); Albumin 3.5 g/dL (3.5-5.7); Albumin/Globulin Ratio 1.4 (1.1-2.2); Alkaline Phosphatase 67 Units/L (34-104); Aspartate Amino Transferase 10 Units/L (13-39); BUN/Creatinine Ratio 27 (6-26); Bilirubin,Total 0.7 mg/dL (0.3-1.0); Blood Urea Nitrogen 21 mg/dL (8-23); Calcium 8.7 mg/dL (8.6-10.3); Carbon Dioxide 35 mEq/L (23-29); Chloride 103 mEq/L (98-107); Globulin 2.5 g/dL (2.4-3.5); Glucose 118 mg/dL (70-105); Osmolality,Calculated 296 (280-300); Potassium 4.4 mEq/L (3.5-5.1); Sodium 141 mEq/L (136-145); eGFR For African Americans > 60 (> 60); eGFR For Non-African Americans > 60 (> 60)
[2022-02-05 08:14] LABS: ABG Base Excess 4 mEq/L (-2 to 3); ABG HCO3 30 mEq/L (21-27); ABG Oxygen Saturation 96 % (95-98); ABG PCO2 49 mmHg (35-45); ABG PH 7.39 pH Units (7.32-7.45); ABG PO2 86 mmHg (85-104); ABG TCO2 31 mEq/L (20-26); Blood Gas Pressure Support 8 cm H2O
[2022-02-05] MEDS: Cholecalciferol (D-3) 1,000 UNIT (25MCG) TABLET PO SCH (08:48)
[2022-02-05] MEDS: Pantoprazole 40 MG VIAL IVP SCH (08:54)
[2022-02-05] MEDS: Remdesivir 100 MG in 0.9 % Sodium Chloride 100 ML IVPB SCH (17:40)
[2022-02-05] MEDS: Melatonin 3 MG TABLET PO PRN (23:01)
[2022-02-06] MEDS: Ipratropium 1 PUFF INHALER IH SCH ×5 (03:31→19:57)
[2022-02-06] MEDS: Insulin LISPRO 300 UNITS/3 ML VIAL SUBQ SCH ×3 (06:49→17:02)
[2022-02-06 09:02] LABS: Basophils % 0.2 %; Hematocrit 40.5 % (37.5-50.1); Hemoglobin 12.6 g/dL (12.9-16.9); Immature Granulocytes % 0.4 % (0-4); Lymphocytes # 0.9 K/mcL (0.6-4.6); Lymphocytes % 15.9 %; Mean Corpuscular HGB Conc 31.1 g/dL (31.6-35.5); Mean Corpuscular Hemoglobin 28.1 pg (28.0-33.3); Mean Corpuscular Volume 90.2 fL (83.0-100.0); Mean Platelet Volume 9.8 fL (9.4-12.4); Monocytes # 0.6 K/mcL (0.0-1.3); Neutrophils # 4.1 K/mcL (1.6-8.9); Platelet Count 148 K/mcL (140-400); Red Blood Count 4.49 M/mcL (4.19-5.50); Segmented Neutrophils % 73.5 %; White Blood Count 5.6 K/mcL (4.3-11.1)
[2022-02-06 09:25] LABS: Alanine Aminotransferase 7 Units/L (7-52); Albumin 3.3 g/dL (3.5-5.7); Albumin/Globulin Ratio 1.4 (1.1-2.2); Alkaline Phosphatase 61 Units/L (34-104); Aspartate Amino Transferase 10 Units/L (13-39); BUN/Creatinine Ratio 40 (6-26); Bilirubin,Direct 0.1 mg/dL (0.0-0.2); Bilirubin,Indirect 0.5 mg/dL (0.0-1.0); Bilirubin,Total 0.6 mg/dL (0.3-1.0); Blood Urea Nitrogen 31 mg/dL (8-23); Calcium 8.5 mg/dL (8.6-10.3); Carbon Dioxide 34 mEq/L (23-29); Chloride 103 mEq/L (98-107); Globulin 2.4 g/dL (2.4-3.5); Glucose 109 mg/dL (70-105); Osmolality,Calculated 299 (280-300); Sodium 141 mEq/L (136-145); Total Protein 5.7 g/dL (6.4-8.9); eGFR For African Americans > 60 (> 60); eGFR For Non-African Americans > 60 (> 60)
[2022-02-06] MEDS: Pantoprazole 40 MG VIAL IVP SCH (10:05)
[2022-02-06] MEDS: Cholecalciferol (D-3) 1,000 UNIT (25MCG) TABLET PO SCH (10:05)
[2022-02-06] MEDS: Remdesivir 100 MG in 0.9 % Sodium Chloride 100 ML IVPB SCH (15:24)
[2022-02-06] MEDS: Melatonin 3 MG TABLET PO PRN (21:37)
[2022-02-06] MEDS: Apixaban 5 MG TABLET PO SCH (21:38)
[2022-02-06] MEDS: traZODone 50 MG TABLET PO SCH (21:38)
[2022-02-07] MEDS: Azithromycin 500 MG in 0.9 % Sodium Chloride 250 ML IVPB SCH (02:54)
[2022-02-07] MEDS: Ipratropium 1 PUFF INHALER IH SCH ×7 (03:42→23:25)
[2022-02-07 05:09] LABS: Hematocrit 40.6 % (37.5-50.1); Hemoglobin 12.4 g/dL (12.9-16.9); Immature Granulocytes % 0.4 % (0-4); Lymphocytes # 0.7 K/mcL (0.6-4.6); Lymphocytes % 12.6 %; Mean Corpuscular HGB Conc 30.5 g/dL (31.6-35.5); Mean Corpuscular Hemoglobin 27.6 pg (28.0-33.3); Mean Corpuscular Volume 90.4 fL (83.0-100.0); Mean Platelet Volume 9.8 fL (9.4-12.4); Monocytes # 0.5 K/mcL (0.0-1.3); Monocytes % 9.7 %; Neutrophils # 4.2 K/mcL (1.6-8.9); Platelet Count 136 K/mcL (140-400); Red Blood Count 4.49 M/mcL (4.19-5.50); Red Cell Distribution Width 14.9 % (11.5-14.5); Segmented Neutrophils % 77.3 %; White Blood Count 5.4 K/mcL (4.3-11.1)
[2022-02-07 05:12] LABS: Platelet Estimate Normal (Normal)
[2022-02-07 05:30] LABS: Alanine Aminotransferase 9 Units/L (7-52); Albumin 3.2 g/dL (3.5-5.7); Albumin/Globulin Ratio 1.2 (1.1-2.2); Alkaline Phosphatase 57 Units/L (34-104); Aspartate Amino Transferase 10 Units/L (13-39); BUN/Creatinine Ratio 32 (6-26); Bilirubin,Direct 0.2 mg/dL (0.0-0.2); Bilirubin,Indirect 0.4 mg/dL (0.0-1.0); Bilirubin,Total 0.6 mg/dL (0.3-1.0); Blood Urea Nitrogen 24 mg/dL (8-23); Calcium 8.6 mg/dL (8.6-10.3); Carbon Dioxide 33 mEq/L (23-29); Chloride 102 mEq/L (98-107); Globulin 2.6 g/dL (2.4-3.5); Glucose 116 mg/dL (70-105); Osmolality,Calculated 295 (280-300); Sodium 140 mEq/L (136-145); Total Protein 5.8 g/dL (6.4-8.9); eGFR For African Americans > 60 (> 60); eGFR For Non-African Americans > 60 (> 60)
[2022-02-07] MEDS: Insulin LISPRO 300 UNITS/3 ML VIAL SUBQ SCH ×5 (06:08→23:47)
[2022-02-07] MEDS: Pantoprazole 40 MG VIAL IVP SCH (10:00)
[2022-02-07] MEDS: risperiDONE 0.25 MG TABLET PO SCH (10:00)
[2022-02-07] MEDS: Apixaban 5 MG TABLET PO SCH ×2 (10:00→21:52)
[2022-02-07] MEDS: Cholecalciferol (D-3) 1,000 UNIT (25MCG) TABLET PO SCH (10:01)
[2022-02-07] MEDS: Remdesivir 100 MG in 0.9 % Sodium Chloride 100 ML IVPB SCH (16:51)
[2022-02-07] MEDS: Melatonin 3 MG TABLET PO PRN (21:53)
[2022-02-07] MEDS: traZODone 50 MG TABLET PO SCH (21:53)
[2022-02-08] MEDS: Azithromycin 500 MG in 0.9 % Sodium Chloride 250 ML IVPB SCH (02:21)
[2022-02-08] MEDS: Ipratropium 1 PUFF INHALER IH SCH ×4 (04:17→15:42)
[2022-02-08 06:33] LABS: Eosinophils % 0.2 %; Hematocrit 42.7 % (37.5-50.1); Immature Granulocytes % 0.2 % (0-4); Immature Platelets 3.7 % (1.1-6.1); Lymphocytes # 0.8 K/mcL (0.6-4.6); Lymphocytes % 15.9 %; Mean Corpuscular HGB Conc 30.4 g/dL (31.6-35.5); Mean Corpuscular Hemoglobin 27.6 pg (28.0-33.3); Mean Corpuscular Volume 90.7 fL (83.0-100.0); Mean Platelet Volume 9.8 fL (9.4-12.4); Monocytes # 0.6 K/mcL (0.0-1.3); Monocytes % 10.5 %; Neutrophils # 3.8 K/mcL (1.6-8.9); Platelet Count 135 K/mcL (140-400); Red Blood Count 4.71 M/mcL (4.19-5.50); Red Cell Distribution Width 14.8 % (11.5-14.5); Segmented Neutrophils % 73.2 %; White Blood Count 5.2 K/mcL (4.3-11.1)
[2022-02-08 06:56] LABS: Alanine Aminotransferase 11 Units/L (7-52); Albumin 3.5 g/dL (3.5-5.7); Albumin/Globulin Ratio 1.5 (1.1-2.2); Alkaline Phosphatase 76 Units/L (34-104); Aspartate Amino Transferase 12 Units/L (13-39); BUN/Creatinine Ratio 29 (6-26); Bilirubin,Direct 0.2 mg/dL (0.0-0.2); Bilirubin,Indirect 0.5 mg/dL (0.0-1.0); Bilirubin,Total 0.7 mg/dL (0.3-1.0); Blood Urea Nitrogen 22 mg/dL (8-23); Calcium 8.7 mg/dL (8.6-10.3); Carbon Dioxide 36 mEq/L (23-29); Chloride 100 mEq/L (98-107); Globulin 2.3 g/dL (2.4-3.5); Glucose 164 mg/dL (70-105); Osmolality,Calculated 297 (280-300); Potassium 4.8 mEq/L (3.5-5.1); Sodium 140 mEq/L (136-145); Total Protein 5.8 g/dL (6.4-8.9); eGFR For African Americans > 60 (> 60); eGFR For Non-African Americans > 60 (> 60)
[2022-02-08 07:12] VITALS: BP 145/79; PULSE 61; TEMP 97.3
[2022-02-08] MEDS: Insulin LISPRO 300 UNITS/3 ML VIAL SUBQ SCH ×3 (10:06→14:32)
[2022-02-08] MEDS: Pantoprazole 40 MG VIAL IVP SCH (10:24)
[2022-02-08] MEDS: Apixaban 5 MG TABLET PO SCH (10:26)
[2022-02-08] MEDS: Cholecalciferol (D-3) 1,000 UNIT (25MCG) TABLET PO SCH (10:26)
[2022-02-08] MEDS: risperiDONE 0.25 MG TABLET PO SCH (10:26)
[2022-02-08 15:48] VITALS: O2SAT 93
== END 2022-02-08 17:29 | disposition home or self-care (01) | DRG 177 ==
LOC: 3NENU 18:52 → EMEROOARM 18:52 → 3NENU 02-04 01:30 → SUATTDRO 02-04 22:27
PROVIDERS: ADMIT Internal Medicine; ATTEND Internal Medicine